=== PATIENT | female | born 1960 | race African-American/Black ===

== ENCOUNTER 2018-01-16 14:37 | Day surgery (SDC) | payer MEDICARE, MEDICAID ==
[2018-01-16 14:56] VITALS: BP 125/74; TEMP 98.3
[2018-01-16] MEDS ORDERED: Epoetin (NON-ESRD) 20,000 UNITS/ML ML SC SCH ×2 (15:00)
[2018-01-16] MEDS ORDERED: Epoetin (ESRD) 20,000 UNITS/ML SC SCH (15:00)
== END 2018-01-16 15:36 | disposition home or self-care (01) ==
LOC: ONC/OP 14:37
PROVIDERS: ATTEND Internal Medicine Medical Oncology
DX: D50.8 Other iron deficiency anemias (principal); N18.3 Chronic kidney disease, stage 3 (moderate)
CPT/HCPCS: 96372; J0885; Q4081

== ENCOUNTER 2018-01-21 20:22 | Emergency (ER) | payer MEDICARE, MEDICAID ==
[2018-01-21 20:51] LABS: #Eosinphils 0.2 thou/uL (0.0-0.7); #Lymphocytes 1.7 thou/uL (1.20-3.40); #Monocytes 0.4 thou/uL (0.11-0.59); #Neutrophils 6.4 thou/uL (1.40-6.50); %Basophils 0.4 % (0.0-1.0); %Eosinophils 2.2 % (0.0-10.0); %Lymphocytes 19.8 % (21.0-51.0); %Neutrophils 72.7 % (42.0-75.0); Hemoglobin 10.6 g/dL (12.0-16.0); Mean Corpuscular HGB CONC 31.6 g/dL (32.0-36.0); Mean Corpuscular Hemoglobin 25.2 pg (27.0-31.0); Mean Corpuscular Volume 79.6 fl (81.0-99.0); Mean Platelet Volume 10.6 fL (7.4-10.4); Platelet Count 254 thou/uL (130-400); RBC Distribution Width 17.6 % (11.5-14.5); Red Blood Cell (RBC) Count 4.21 mill/uL (4.20-5.40); White Blood Cell (WBC) Count 8.8 thou/uL (4.8-10.8)
[2018-01-21 21:11] LABS: ALT (SGPT) 8 U/L (8-55); AST (SGOT) 10 U/L (5-34); Albumin 3.6 g/dL (3.5-5.0); Alkaline Phosphatase 86 U/L (40-150); Anion Gap 14 mmol/L (10-20); BUN (Urea Nitrogen) 32 mg/dL (9.8-20.1); Bilirubin, Total 0.6 mg/dL (0.2-1.2); Calc. Creatinine Clearance 0 mL/min (70-130); Calcium 9.2 mg/dL (7.8-10.44); Carbon Dioxide 26 mmol/L (22-29); Chloride 103 mmol/L (98-107); Estimated GFR-MDRD 32; Glucose 157 mg/dL (70-105); Lipase 51 U/L (8-78); Potassium 3.8 mmol/L (3.5-5.1); Protein, Total 7.6 g/dL (6.0-8.3); Sodium 139 mmol/L (136-145)
[2018-01-21 21:15] LABS: CKMB 0.3 ng/mL (0-6.6); Troponin I Less than 0.010 ng/mL (< 0.028)
--- NOTE | 2018-01-21 21:52 | RAD ---
PORTABLE CHEST: 01/21/2018 PROVIDED CLINICAL HISTORY: Cough. COMPARISON: 01/21/2017 FINDINGS: Evaluation is limited by patient body habitus. The cardiac silhouette appears enlarged. Prominence of the pulmonary vasculature. The left lung base is poorly evaluated. Parenchymal opacity cannot be excluded. There is no evidence for pneumothorax or large effusion. IMPRESSION: Limited study without evidence for an acute cardiopulmonary process. POS: [facility]
== END 2018-01-22 00:48 | disposition home or self-care (01) ==
LOC: ERS 20:22
DX: J20.9 Acute bronchitis, unspecified (principal); J44.0 Chronic obstructive pulmonary disease with (acute) lower respiratory infection; I11.0 Hypertensive heart disease with heart failure; I50.9 Heart failure, unspecified; E11.9 Type 2 diabetes mellitus without complications; Z79.82 Long term (current) use of aspirin; Z79.899 Other long term (current) drug therapy
CPT/HCPCS: 71045; 80053; 82553; 83690; 84484; 85025; 93005; J7620

== ENCOUNTER 2018-01-23 13:57 | Day surgery (SDC) | payer MEDICARE, MEDICAID ==
[2018-01-23] MEDS ORDERED: Epoetin (ESRD) 20,000 UNITS/ML SC SCH (14:30)
[2018-01-23 14:43] VITALS: BP 135/63; TEMP 98
== END 2018-01-23 14:43 | disposition home or self-care (01) ==
LOC: ONC/OP 13:57
PROVIDERS: ATTEND Internal Medicine Medical Oncology
DX: D50.8 Other iron deficiency anemias (principal); N18.3 Chronic kidney disease, stage 3 (moderate)
CPT/HCPCS: 96372; Q4081

== ENCOUNTER 2018-01-24 18:05 | Emergency (ER) | payer MEDICARE, MEDICAID ==
[2018-01-24 18:30] LABS: #Eosinphils 0.1 thou/uL (0.0-0.7); #Lymphocytes 1.9 thou/uL (1.20-3.40); #Monocytes 0.5 thou/uL (0.11-0.59); #Neutrophils 6.4 thou/uL (1.40-6.50); %Basophils 0.2 % (0.0-1.0); %Eosinophils 0.6 % (0.0-10.0); %Lymphocytes 21.8 % (21.0-51.0); %Monocytes 5.4 % (0.0-10.0); Hemoglobin 10.7 g/dL (12.0-16.0); Mean Corpuscular HGB CONC 30.3 g/dL (32.0-36.0); Mean Corpuscular Hemoglobin 23.9 pg (27.0-31.0); Mean Corpuscular Volume 78.9 fl (81.0-99.0); Mean Platelet Volume 10.4 fL (7.4-10.4); Platelet Count 295 thou/uL (130-400); Red Blood Cell (RBC) Count 4.49 mill/uL (4.20-5.40); White Blood Cell (WBC) Count 8.9 thou/uL (4.8-10.8)
[2018-01-24 18:52] LABS: ALT (SGPT) Less than 7 U/L (8-55); AST (SGOT) 9 U/L (5-34); Albumin 3.4 g/dL (3.5-5.0); Alkaline Phosphatase 76 U/L (40-150); Anion Gap 14 mmol/L (10-20); BUN (Urea Nitrogen) 46 mg/dL (9.8-20.1); Bilirubin, Total 0.4 mg/dL (0.2-1.2); CK (CPK) 38 U/L (29-168); Calc. Creatinine Clearance 0 mL/min (70-130); Calcium 9.2 mg/dL (7.8-10.44); Carbon Dioxide 24 mmol/L (22-29); Chloride 103 mmol/L (98-107); Estimated GFR-MDRD 24; Globulin 3.5 g/dL (2.4-3.5); Glucose 123 mg/dL (70-105); Potassium 3.8 mmol/L (3.5-5.1); Protein, Total 6.9 g/dL (6.0-8.3); Sodium 137 mmol/L (136-145)
[2018-01-24 18:57] LABS: CKMB 0.6 ng/mL (0-6.6); Troponin I Less than 0.010 ng/mL (< 0.028)
[2018-01-24] MEDS ORDERED: diphenhydrAMINE 50 MG CAP ONE (19:07)
[2018-01-24] MEDS ORDERED: methylPREDNISolone Sod Succ/PF 125 MG/2 ML VIAL ONE (19:07)
--- NOTE | 2018-01-24 19:19 | RAD ---
FRONTAL VIEW CHEST: INDICATIONS: Short of breath. COMPARISON: 01/21/2018 FINDINGS: There is enlargement of the cardiac silhouette and prominence of the pulmonary vasculature. The left lung base is obscured by the enlarged cardiac silhouette. The chest is otherwise similar. IMPRESSION: Evidence of congestive heart failure. Recommend continued followup. POS: [facility]
== END 2018-01-24 21:27 | disposition home or self-care (01) ==
LOC: ERS 18:05
DX: L50.0 Allergic urticaria (principal); N17.9 Acute kidney failure, unspecified; J44.9 Chronic obstructive pulmonary disease, unspecified; I50.9 Heart failure, unspecified; E11.9 Type 2 diabetes mellitus without complications; I11.0 Hypertensive heart disease with heart failure; Z87.891 Personal history of nicotine dependence; Z86.73 Personal history of transient ischemic attack (TIA), and cerebral infarction without residual deficits; Z79.899 Other long term (current) drug therapy; Z79.82 Long term (current) use of aspirin
CPT/HCPCS: 71045; 80053; 82553; 84484; 85025; 93005; 94760; 96372; J2930

== ENCOUNTER 2018-02-07 09:06 | Day surgery (SDC) | payer MEDICARE, MEDICAID ==
[2018-02-07] MEDS ORDERED: Sodium Chloride 0.9% 20 ML ONE (09:28)
[2018-02-07 10:28] VITALS: BP 124/74; TEMP 97.5
== END 2018-02-07 11:42 | disposition home or self-care (01) ==
LOC: ONC/OP 09:06
PROVIDERS: ATTEND Internal Medicine Medical Oncology
DX: D50.8 Other iron deficiency anemias (principal); N18.3 Chronic kidney disease, stage 3 (moderate)
CPT/HCPCS: 96365; A4216; J1756; J7050

== ENCOUNTER 2018-02-20 14:39 | Day surgery (SDC) | payer MEDICARE, MEDICAID ==
[2018-02-20] MEDS ORDERED: Darbepoetin Alfa in Polysorbat 25 MCG/ML VIAL SC SCH (15:00)
== END 2018-02-20 17:14 | disposition home or self-care (01) ==
LOC: ONC/OP 14:39
PROVIDERS: ATTEND Internal Medicine Medical Oncology
DX: D50.8 Other iron deficiency anemias (principal); N18.3 Chronic kidney disease, stage 3 (moderate)
CPT/HCPCS: 96372; J0881

== ENCOUNTER 2018-02-27 15:27 | Day surgery (SDC) | payer MEDICARE, MEDICAID ==
[2018-02-27] MEDS ORDERED: Darbepoetin Alfa in Polysorbat 25 MCG/ML VIAL SC SCH (15:45)
== END 2018-02-27 16:16 | disposition home or self-care (01) ==
LOC: ONC/OP 15:27
PROVIDERS: ATTEND Internal Medicine Medical Oncology
DX: D50.8 Other iron deficiency anemias (principal); N18.3 Chronic kidney disease, stage 3 (moderate); D63.1 Anemia in chronic kidney disease
CPT/HCPCS: 96372; J0881

== ENCOUNTER 2018-03-20 15:36 | Day surgery (SDC) | payer MEDICARE, MEDICAID ==
[2018-03-20] MEDS ORDERED: Darbepoetin Alfa in Polysorbat 25 MCG/ML VIAL SC SCH (16:00)
[2018-03-20 16:27] VITALS: BP 114/74; TEMP 97.8
== END 2018-03-20 16:27 | disposition home or self-care (01) ==
LOC: ONC/OP 15:36
PROVIDERS: ATTEND Internal Medicine Hematology & Oncology
DX: I13.0 Hypertensive heart and chronic kidney disease with heart failure and stage 1 through stage 4 chronic kidney disease, or unspecified chronic kidney disease (principal); E11.22 Type 2 diabetes mellitus with diabetic chronic kidney disease; I50.30 Unspecified diastolic (congestive) heart failure; N18.3 Chronic kidney disease, stage 3 (moderate); D63.1 Anemia in chronic kidney disease; D50.8 Other iron deficiency anemias; M10.9 Gout, unspecified; E78.5 Hyperlipidemia, unspecified; M19.90 Unspecified osteoarthritis, unspecified site; J44.9 Chronic obstructive pulmonary disease, unspecified; F41.9 Anxiety disorder, unspecified; F32.9 Major depressive disorder, single episode, unspecified
CPT/HCPCS: 96372; J0881

== ENCOUNTER 2018-03-26 10:48 | Outpatient (CLI) | payer MEDICARE, MEDICAID | END 2018-03-26 10:49 | disposition home or self-care (01) | LOC: BICMAMMO 10:48 | PROVIDERS: ATTEND Internal Medicine | DX: Z12.31 Encounter for screening mammogram for malignant neoplasm of breast (principal); Z80.3 Family history of malignant neoplasm of breast | CPT/HCPCS: 77063; 77067 ==

== ENCOUNTER → 2018-03-27 | Day surgery (SDC) | payer MEDICARE, MEDICAID ==
[~2018-03-27] MED LIST: Darbepoetin Alfa in Polysorbat 25 MCG/ML VIAL SC SCH
[2018-03-27 15:13] VITALS: BP 107/55; TEMP 98.3
== END ==
LOC: ONC/OP 14:49
PROVIDERS: ATTEND Internal Medicine Hematology & Oncology
DX: I13.0 Hypertensive heart and chronic kidney disease with heart failure and stage 1 through stage 4 chronic kidney disease, or unspecified chronic kidney disease (principal); E11.22 Type 2 diabetes mellitus with diabetic chronic kidney disease; N18.3 Chronic kidney disease, stage 3 (moderate); D63.1 Anemia in chronic kidney disease; D50.8 Other iron deficiency anemias; I50.30 Unspecified diastolic (congestive) heart failure; M10.9 Gout, unspecified; E78.5 Hyperlipidemia, unspecified; M19.90 Unspecified osteoarthritis, unspecified site; J44.9 Chronic obstructive pulmonary disease, unspecified; F41.9 Anxiety disorder, unspecified; F32.9 Major depressive disorder, single episode, unspecified; Z87.891 Personal history of nicotine dependence; Z79.899 Other long term (current) drug therapy
CPT/HCPCS: 96372; J0881

== ENCOUNTER 2018-04-03 15:06 | Day surgery (SDC) | payer MEDICARE, MEDICAID ==
[2018-04-03] MEDS ORDERED: Darbepoetin Alfa in Polysorbat 25 MCG/ML VIAL SC SCH (15:45)
[2018-04-03 19:44] VITALS: BP 134/68; TEMP 98.5
== END 2018-04-03 19:44 | disposition home or self-care (01) ==
LOC: ONC/OP 15:06
PROVIDERS: ATTEND Internal Medicine Medical Oncology
DX: I13.0 Hypertensive heart and chronic kidney disease with heart failure and stage 1 through stage 4 chronic kidney disease, or unspecified chronic kidney disease (principal); E11.22 Type 2 diabetes mellitus with diabetic chronic kidney disease; N18.3 Chronic kidney disease, stage 3 (moderate); D50.8 Other iron deficiency anemias; I50.30 Unspecified diastolic (congestive) heart failure; D63.1 Anemia in chronic kidney disease; M10.9 Gout, unspecified; E78.5 Hyperlipidemia, unspecified; M19.90 Unspecified osteoarthritis, unspecified site; J44.9 Chronic obstructive pulmonary disease, unspecified; F41.9 Anxiety disorder, unspecified; F32.9 Major depressive disorder, single episode, unspecified; Z87.891 Personal history of nicotine dependence; Z79.899 Other long term (current) drug therapy
CPT/HCPCS: 96372; J0881

== ENCOUNTER 2018-04-23 09:43 | Day surgery (SDC) | payer MEDICARE, MEDICAID ==
[2018-04-23 09:57] VITALS: BP 119/73; TEMP 98.1
[2018-04-23] MEDS ORDERED: Darbepoetin Alfa in Polysorbat 25 MCG/ML VIAL SC SCH (10:00)
== END 2018-04-23 15:58 | disposition home or self-care (01) ==
LOC: ONC/OP 09:43
PROVIDERS: ATTEND Internal Medicine Medical Oncology
DX: D50.8 Other iron deficiency anemias (principal); N18.3 Chronic kidney disease, stage 3 (moderate); D63.1 Anemia in chronic kidney disease
CPT/HCPCS: 96372; J0881

== ENCOUNTER 2018-05-07 09:18 | Day surgery (SDC) | payer MEDICARE, MEDICAID ==
[2018-05-07] MEDS ORDERED: Darbepoetin Alfa in Polysorbat 25 MCG/ML VIAL SC SCH (09:45)
== END 2018-05-07 11:28 | disposition home or self-care (01) ==
LOC: ONC/OP 09:18
PROVIDERS: ATTEND Internal Medicine Medical Oncology
DX: D50.8 Other iron deficiency anemias (principal); N18.3 Chronic kidney disease, stage 3 (moderate)
CPT/HCPCS: 96372; J0881

== ENCOUNTER 2018-05-16 23:15 | Inpatient (IN) | payer MEDICARE, MEDICAID ==
[2018-05-16] MEDS ORDERED: Albuterol Sulfate 2.5 mg/3 ml Neb ONE (23:35)
--- NOTE | 2018-05-16 23:38 | RAD ---
CHEST ONE VIEW: 05/16/18 HISTORY: Chest pain. Comparison radiograph: 01/24/18. FINDINGS: The heart size is enlarged. Pulmonary arteries are enlarged. Mild edema. Small effusions. IMPRESSION: Congestive heart failure. POS: [facility]
[2018-05-16 23:50] LABS: Actual Bicarbonate (HCO3a) 25.3 mEq/L (22-28); Analyzer IN Cardio ER; Base Excess (BEa) 1.5 mEq/L (-2.0 to +3.0); CO2 Tension 37.2 mmHg (35.0-45.0); Calcium, Ionized 1.13 mmol/L (1.12-1.30); Carboxyhemoglobin (COHb) 0.4 gm% (0.0-3.0); Hemoglobin (Hb) 11.7 g/dL (12.0-16.0); Potassium - ABG Lab 3.21 mmol/L (3.70-5.30); pH, Arterial 7.45 (7.35-7.45)
[2018-05-16 23:51] LABS: #Basophils 0.1 thou/uL (0.0-0.2); #Eosinphils 0.1 thou/uL (0.0-0.7); #Lymphocytes 1.7 thou/uL (1.20-3.40); #Monocytes 0.5 thou/uL (0.11-0.59); %Basophils 0.6 % (0.0-1.0); %Eosinophils 1.2 % (0.0-10.0); %Monocytes 5.4 % (0.0-10.0); %Neutrophils 74.8 % (42.0-75.0); Hemoglobin 10.6 g/dL (12.0-16.0); Mean Corpuscular HGB CONC 31.4 g/dL (32.0-36.0); Mean Corpuscular Hemoglobin 26.2 pg (27.0-31.0); Mean Corpuscular Volume 83.6 fL (78.0-98.0); Mean Platelet Volume 10.3 fL (7.4-10.4); Platelet Count 296 thou/uL (130-400); RBC Distribution Width 17.1 % (11.5-14.5); Red Blood Cell (RBC) Count 4.02 mill/uL (4.20-5.40); White Blood Cell (WBC) Count 9.4 thou/uL (4.8-10.8)
[2018-05-16 23:54] LABS: Puncture Site RRA
[2018-05-17 00:10] LABS: ALT (SGPT) 27 U/L (8-55); AST (SGOT) 18 U/L (5-34); Albumin 3.5 g/dL (3.5-5.0); Alkaline Phosphatase 86 U/L (40-150); Anion Gap 14 mmol/L (10-20); BUN (Urea Nitrogen) 36 mg/dL (9.8-20.1); Bilirubin, Total 0.3 mg/dL (0.2-1.2); CK (CPK) 49 U/L (29-168); Calc. Creatinine Clearance 0 mL/min (70-130); Calcium 8.8 mg/dL (7.8-10.44); Carbon Dioxide 22 mmol/L (22-29); Chloride 108 mmol/L (98-107); Estimated GFR-MDRD 29; Globulin 3.2 g/dL (2.4-3.5); Glucose 149 mg/dL (70-105); Lipase 25 U/L (8-78); Potassium 3.4 mmol/L (3.5-5.1); Protein, Total 6.7 g/dL (6.0-8.3); Sodium 141 mmol/L (136-145)
[2018-05-17 00:14] LABS: CKMB 0.7 ng/mL (0-6.6); Troponin I Less than 0.010 ng/mL (< 0.028)
[2018-05-17] MEDS ORDERED: Furosemide 40 MG/4 ML VIAL ONE (00:25)
[2018-05-17] MEDS ORDERED: Nitroglycerin 2% Ointment 1 INCH/1 GM Packet ONE (00:25)
[2018-05-17 00:30] LABS: INR-International Normal Ratio 2.6; Prothrombin Time 27.8 SEC (12.0-14.7)
[2018-05-17] MEDS ORDERED: Acetaminophen 325 MG TAB PO PRN (01:26)
[2018-05-17] MEDS ORDERED: HumaLOG 300 UNITS/3 ML VIAL SC PRN (01:31)
[2018-05-17] MEDS ORDERED: Dextrose 5% in Water 1,000 ML IV PRN (01:31)
[2018-05-17] MEDS ORDERED: Dextrose 50% Abboject 50 ML SYRINGE SLOW IVP PRN (01:31)
[2018-05-17] MEDS ORDERED: WARFARIN PO PRN (01:41)
[2018-05-17 04:07] LABS: #Eosinphils 0.1 thou/uL (0.0-0.7); #Lymphocytes 1.3 thou/uL (1.20-3.40); #Monocytes 0.5 thou/uL (0.11-0.59); #Neutrophils 6.4 thou/uL (1.40-6.50); %Basophils 0.5 % (0.0-1.0); %Eosinophils 1.2 % (0.0-10.0); %Lymphocytes 15.2 % (21.0-51.0); %Monocytes 6.3 % (0.0-10.0); %Neutrophils 76.8 % (42.0-75.0); Mean Corpuscular HGB CONC 30.8 g/dL (32.0-36.0); Mean Corpuscular Volume 84.4 fL (78.0-98.0); Mean Platelet Volume 10.1 fL (7.4-10.4); Platelet Count 257 thou/uL (130-400); RBC Distribution Width 16.9 % (11.5-14.5); Red Blood Cell (RBC) Count 3.83 mill/uL (4.20-5.40); White Blood Cell (WBC) Count 8.4 thou/uL (4.8-10.8)
[2018-05-17 04:13] LABS: Anion Gap 12 mmol/L (10-20); BUN (Urea Nitrogen) 36 mg/dL (9.8-20.1); Calc. Creatinine Clearance 28 mL/min (70-130); Calcium 8.4 mg/dL (7.8-10.44); Carbon Dioxide 26 mmol/L (22-29); Chloride 108 mmol/L (98-107); Estimated GFR-MDRD 31; Glucose 112 mg/dL (70-105); Potassium 3.4 mmol/L (3.5-5.1); Sodium 143 mmol/L (136-145)
[2018-05-17 04:19] LABS: INR-International Normal Ratio 2.6
[2018-05-17] MEDS: Furosemide 40 MG/4 ML VIAL SLOW IVP SCH ×2 (06:06→14:04)
[2018-05-17 06:15] VITALS: BMI 45.8
--- NOTE | 2018-05-17 07:59 | HP ---
DATE OF ADMISSION: 05/17/2018 PRIMARY CARE PHYSICIAN: Dr. bAarca. CODE STATUS: FULL CODE. TIME OF EVALUATION: 1:40 a.m. CHIEF COMPLAINT: Shortness of breath. HISTORY OF PRESENT ILLNESS: This is a 57-year-old female patient with past medical history of hypertension, diabetes, obesity, CHF, COPD, came to the hospital after having gradually worsening shortness of breath that was severe with saturation of 82 on 3 liters and then BiPAP for stabilization of her respiratory status, no clear triggers, only alleviating factor was the medical treatment. Symptoms were severe. REVIEW OF SYSTEMS: Constitutional: No fever or chills or generalized weakness. Respiratory: Patient has cough, scant whitish sputum production, shortness of breath. Cardiovascular: No chest pain, palpitation, exertional shortness of breath. Gastrointestinal: No nausea, no vomiting, diarrhea, or abdominal pain. 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 Genitourinary: No burning on urination. Extremities: No leg swelling. All other systems were reviewed and negative except for the findings mentioned above. PAST MEDICAL HISTORY: As mentioned in the HPI. PAST SURGICAL HISTORY: Hysterectomy. PSYCHIATRIC HISTORY: No previous psych history. SOCIAL HISTORY: Patient denies any alcohol use. No drugs. Former cigarette smoker. FAMILY HISTORY: Sibling with coronary artery disease. Mother with history of cancer. DRUG ALLERGIES: No known drug allergies. REPORTED MEDICATIONS: Coumadin, aspirin, metoprolol, montelukast, sertraline, amlodipine, hydralazine, potassium chloride, atorvastatin, Advair, ProAir, allopurinol, calcium plus vitamin D. PHYSICAL EXAMINATION: VITAL SIGNS: On presentation, heart rate 85, respiratory rate was 24, oxygen saturation was 95 on BiPAP were recorded in the 80s on 3 liters nasal cannula, blood pressure was 120/93. GENERAL APPEARANCE: The patient is on BiPAP, in mild respiratory distress, oriented. Alert. HEENT: Eye normal conjunctiva. Moist oral mucosa. Anicteric. NECK: Bilateral JVD. RESPIRATORY: Bilateral air entry. No rales, no wheezing. Symmetric expansion. CARDIOVASCULAR: Normal rate, regular rhythm. No murmurs, no gallop, bilateral leg edema. ABDOMEN: Soft, distended, normal bowel sounds. MUSCULOSKELETAL: Baseline range of motion and strength. No tenderness. SKIN: Warm and intact. No pallor, no rash, no redness. Peripheral pulses are present. Capillary refill seems to be intact. NEUROLOGIC: Baseline sensory. No evidence of any new focal weakness. Baseline speech. Cranial nerves seem to be intact. PSYCHIATRIC: Patient is in good mood, no anxiety, oriented with optimal judgment. IMAGING: EKG was reviewed myself. Patient has sinus rhythm with occasional PVCs, prolonged QT with QT corrected 465, MI 178. Ventricular rate 84. Chest x -ray was reviewed. The patient has congestive heart failure on the chest x-ray. LABORATORY DATA: The labs were reviewed myself. Patient has white count 9.4, hemoglobin 10.6, platelet count 296. PT 27.8, INR 2.6, PTT 58.0. Blood gas ABG was 7.45 with pCO2 of 37, pO2 of 60 on BiPAP at the rate of 6 and PEEP of 5, pressure support of 10. Chemistry: Sodium 141, potassium 3.4, chloride 108, carbon dioxide 22, anion gap 14, creatinine 2.11. I have reviewed old records and the previous creatinines on March of this year was 1.56 , glucose 149. Lactic acid was normal. Beta natriuretic peptide was 1694 with troponin was negative. ASSESSMENT AND PLAN: The patient will be placed in the hospital with following medical problems: 1. Acute congestive heart failure exacerbation that is severe, leading to hypoxic respiratory failure, needing BiPAP for stabilization of the respiratory status. The patient will be given diuresis, we will continue respiratory support, we will reconcile home medications. We will place in the IMCU for this reason. 2. Acute hypoxic respiratory failure. Continue BiPAP, might be able to step down to nasal cannula if patient is more stable at home. 3. Uncontrolled diabetes with a glucose 149, reconcile home medications and place the patient on sliding scale. 4. Acute on chronic kidney injury. The patient has an increase in creatinine to 2.1 and previous admission was 1.5. She might be cardiorenal, patient will need diuresis if not improving, might need Nephrology office manager executive assistant for diuresis in the setting of her acute kidney injury. We will monitor kidney function. 5. Hypokalemia with potassium 3.4, we will replace electrolytes as needed. This is mild. 6. Chronic normocytic anemia, hemoglobin was the same in old records. Likely secondary to chronic kidney disease, no need for any acute intervention at this point, we will monitor. 7. Chronic anticoagulation. INR is 2.6. Pharmacy to dose Coumadin. 8. Uncontrolled hypertension. Patient presented with systolic blood pressure 166, likely related to decompensated congestive heart failure, blood pressure was improved after Lasix, we will monitor. We will reconcile home medications, we will adjust treatment as needed. 9. History of chronic obstructive pulmonary disease, patient has no wheezing, these problems seems to be stable at this point, might need CO2 retention on the ABG. Reconcile home medications. We will monitor, start complete treatment for chronic obstructive pulmonary disease exacerbation if patient deteriorates. 10. Deep venous thrombosis prophylaxis. Patient is on warfarin. MTDD
[2018-05-17] MEDS: Enoxaparin Sodium 30 MG/0.3 ML SYRINGE SC SCH ×2 (08:50→08:51)
[2018-05-17] MEDS ORDERED: PROVENTIL INHALER 6.7 G (200 INHALATIONS) INH PRN (11:07)
--- NOTE | 2018-05-17 11:10 | PDOC.EVN ---
Event Note - Event Note Event Note: Pt seen and examined. chart reviewed. admitted for ac hypoxic respiratory failure due to Acute CHF,christinaley diastolic. Off of Bipap and feels better. few bibasilar crackles. No wheezes Cont diuretics. Get ECHO. restart home meds. will follow. AM labs
--- NOTE | 2018-05-17 13:49 | CON ---
DATE OF CONSULTATION: 05/17/2018 SERVICE: Pulmonary Medicine. HISTORY OF PRESENT ILLNESS: The patient is a 57-year-old female with past medical history significant for horrendous obstructive sleep apnea, morbid obesity, obesity hypoventilation syndrome and possible obstructive lung disease who presents to the hospital with a 3-day history of increasing shortness of breath, cough and brown sputum production. She denies having any fevers or chills. She denies having any night sweats. She has no nausea or vomiting. She had a day of diarrhea 2 days ago, but it has subsequently resolved. She is not having any abdominal discomfort, hot, red or swollen joints, rashes or arthralgias. Because of these symptoms, she was having a hard time breathing and presented to the Emergency Department. She got Lasix and nebulized medications. This morning, she is actually feeling a little bit better. At no point did she actually get put on her BiPAP. PAST MEDICAL HISTORY: 1. Morbid obesity. 2. Obstructive sleep apnea, severe (AHI 150). 3. Type 2 diabetes mellitus. 4. Hypertension. 5. Dyslipidemia. 6. Chronic obstructive pulmonary disease, possible. 7. Gastroesophageal reflux disease. 8. Congestive heart failure. PAST SURGICAL HISTORY: Hysterectomy. SOCIAL HISTORY: Negative for tobacco, alcohol or illicit drug use. She has a remote history of smoking cigarettes, but it was only a 40-imir-lzwo history. FAMILY HISTORY: Noncontributory. ALLERGIES: No known drug allergies. MEDICATIONS: List of her inpatient medications was reviewed. Multiple updates were made. REVIEW OF SYSTEMS: General, head, ears, eyes, nose, throat, cardiovascular, respiratory, GI, , musculoskeletal, neurologic and skin is negative except as mentioned in the HPI. PHYSICAL EXAMINATION: VITAL SIGNS: Afebrile, pulse 66, blood pressure 145/79, respirations 22, saturation 95% on 3 liters nasal cannula. GENERAL: The patient is awake and alert, in no apparent distress. LUNGS: Decent air entry. Crackles are present bilaterally. There is no prolonged expiratory phase. Rhonchi are there, but I do not appreciate any wheezing. HEART: Normal rate, regular. ABDOMEN: Soft, nontender, nondistended. Bowel sounds are positive. MUSCULOSKELETAL: No cyanosis or clubbing. There is 1+ pitting in the bilateral lower extremities. NEUROLOGIC: Grossly nonfocal. LABORATORY DATA: WBC 8.4, hemoglobin 10.0, platelets 257,000. INR 2.6. PH 7.45, pCO2 37, pO2 60. Creatinine 2.01, BUN 36. Basic metabolic profile is otherwise unremarkable. Potassium is 3.4. Blood sugar ranges from 94-156. BNP 1600, which is an all time high for this patient. Liver function studies are unremarkable. Cardiac enzymes are negative x1. IMAGING: Chest x-ray demonstrates interstitial and alveolar infiltrates. There is a fullness of the pulmonary vasculature. Tevin B lines and fluid in the fissure is identified. The heart is enlarged. There is likely a left- sided pleural effusion present, but it is challenging to say. There is significant soft tissue attenuation. ASSESSMENT: 1. Acute on chronic hypoxic respiratory failure. 2. Morbid obesity. 3. Acute on chronic diastolic heart failure. 4. Gastroesophageal reflux disease. 5. Obstructive sleep apnea, horrendous, noncompliant with CPAP therapy. DISCUSSION AND PLAN: The patient is doing fine from a respiratory standpoint. We will continue to diurese her through time. I will deescalate her steroids and limit her to a 4-day course. Antibiotics will be converted over to p.o. Fluids will be minimized moving forward. I will give her some potassium today. She does have chronic kidney disease, which is likely contributing to her fluid overload state. I do not think that she has horrendous obstructive lung disease based on clinical exam. We have pulmonary function studies from 2015 that were essentially not able to be interpreted because her expiratory time was wholly inadequate due to coughing spells, but at that time, there did not appear to be any significant obstructive profile. Pulmonary will continue to follow while the patient remains in house, but Dr. Redmond will assume care on Saturday. 70 minutes have been devoted to this patient in various activities. I personally reviewed all imaging studies and laboratory data noted within this document. For fifty percent of this time, I was interacting with the patient at the bedside or coordinating care with the care team. For the remainder of the time I was immediately available to the patient in the hospital unit. JENNIFER
[2018-05-17] MEDS ORDERED: Warfarin Sodium 5 MG TAB PO SCH (17:00)
[2018-05-17] MEDS: Potassium Chloride 20 MEQ TAB PO SCH (17:58)
[2018-05-17] MEDS: Warfarin Sodium 5 MG TAB PO SCH (17:58)
--- NOTE | 2018-05-17 18:26 | CON ---
DATE OF CONSULTATION: 05/17/2018 HISTORY OF PRESENT ILLNESS: The patient is a 57-year-old woman who presented with increasing dyspnea. The patient was seen initially in 2010. She underwent a cardiac catheterization to have normal left ventricular systolic function with normal coronary arteries. The patient admitted on several occasions with diastolic heart failure. The patient also has a history of DVT and is on chronic anticoagulation therapy. The patient previously suffered a cerebrovascular accident. The patient was in her usual state of health when she recently ran out of some of her antihypertensive medications. The patient started developing increasing dyspnea. The patient denied having any chest discomfort. PAST MEDICAL HISTORY: 1. Congestive heart failure. 2. Hypertension. 3. Diabetes mellitus. 4. Deep venous thrombosis. 5. History of cerebrovascular accident. PAST SURGICAL HISTORY: Hysterectomy. SOCIAL HISTORY: Nonsmoker. ALLERGIES: No known drug allergies. MEDICATIONS: Coumadin 5 at bedtime, aspirin 81 daily, metoprolol 100 b.i.d., Norvasc 10 daily, potassium 20 b.i.d., Lasix 10 daily, allopurinol 300 daily. FAMILY HISTORY: Positive family history of heart disease. REVIEW OF SYSTEMS: Ten-point system otherwise unremarkable. No history of easy bruising or bleeding, bright red blood per rectum. PHYSICAL EXAMINATION: GENERAL: Obese woman, in mild distress. VITAL SIGNS: Blood pressure 145/79. NECK: Full. LUNGS: Have crackles in both bases. HEART: Regular rate and rhythm. Normal S1, S2. ABDOMEN: Distended. EXTREMITIES: Showed mild bilateral edema. SKIN: Warm and dry. NEUROLOGIC: Nonfocal. VASCULAR: Radial pulses are 2+. LABORATORY RESULTS: Her sodium was 143, potassium 3.4, chloride 108, bicarbonate 26, BUN 36, creatinine is 2.0, glucose 112. Her white blood cell count is 8.4, hemoglobin 10.0, hematocrit 32.3, platelets 257,000. INR 2.6. IMAGING: EKG revealed her to have normal sinus rhythm with occasional PVCs, nonspecific ST-T wave abnormality. Chest x-ray showed cardiomegaly with diffuse pulmonary edema. IMPRESSION: 1. Congestive heart failure secondary to probably diastolic dysfunction. 2. Hypertension. 3. Diabetes mellitus. 4. History of cerebrovascular accident. 5. Deep venous thrombosis. 6. Renal insufficiency. This patient presents with congestive heart failure. She ran out of her blood pressure medications. The patient is being diuresed with IV Lasix. We will check the patient's echocardiogram. The patient's antihypertensive medications have been restarted. We will follow this patient with you through her hospitalization. JENNIFER
[2018-05-17] MEDS ORDERED: Mometasone/Formoterol 120 PUFF INHALER INH SCH (18:30)
[2018-05-17] MEDS: Mometasone/Formoterol 120 PUFF INHALER INH SCH (18:53)
[2018-05-17] MEDS: Montelukast Sodium 10 mg Tablet PO SCH (21:35)
[2018-05-17] MEDS: hydrALAZINE 25 MG TAB PO SCH (21:35)
[2018-05-18 05:39] LABS: INR-International Normal Ratio 2.6; Prothrombin Time 27.5 SEC (12.0-14.7)
[2018-05-18 05:53] LABS: Anion Gap 15 mmol/L (10-20); BUN (Urea Nitrogen) 29 mg/dL (9.8-20.1); Calc. Creatinine Clearance 80 mL/min (70-130); Calcium 8.7 mg/dL (7.8-10.44); Carbon Dioxide 21 mmol/L (22-29); Chloride 110 mmol/L (98-107); Estimated GFR-MDRD 43; Glucose 104 mg/dL (70-105); Magnesium 2.1 mg/dL (1.6-2.6); Sodium 142 mmol/L (136-145)
[2018-05-18] MEDS: Furosemide 40 MG/4 ML VIAL SLOW IVP SCH ×2 (06:16→14:57)
[2018-05-18] MEDS: Mometasone/Formoterol 120 PUFF INHALER INH SCH ×2 (07:26→19:04)
[2018-05-18] MEDS: Calcium Carbonate + Vit D 1 TAB PO SCH (08:50)
[2018-05-18] MEDS: Potassium Chloride 20 MEQ TAB PO SCH ×2 (08:50→17:34)
[2018-05-18] MEDS: Atorvastatin Calcium 10 MG TAB PO SCH (08:51)
[2018-05-18] MEDS: Amlodipine 10 MG TAB PO SCH (08:51)
[2018-05-18] MEDS: Aspirin 81 mg Enteric Coated Tablet PO SCH (08:51)
[2018-05-18] MEDS: Allopurinol 300 MG TAB PO SCH (08:52)
[2018-05-18] MEDS: hydrALAZINE 25 MG TAB PO SCH ×2 (08:52→21:23)
--- NOTE | 2018-05-18 12:11 | PDOC.PN ---
- Subjective Encounter Start Date: 05/18/18 Encounter Start Time: 12:09 Subjective: continues to feel SOb w exertion -: chest pain when gets SOB.no fever/cough - Objective Resuscitation Status: Resuscitation Status FULL:Full Resuscitation MAR Reviewed: Yes Vital Signs & Weight: Vital Signs (12 hours) Temp Pulse Resp BP BP Pulse Ox 05/18/18 08:52 58 L 05/18/18 08:51 58 L 117/62 05/18/18 07:36 93 L 05/18/18 07:35 97.8 F 58 L 18 117/62 93 L 05/18/18 07:26 65 12 05/18/18 04:00 98.3 F 65 21 H 116/87 96 Weight Weight 279 lb 8 oz I&O: 05/17/18 05/18/18 05/19/18 06:59 06:59 06:59 Intake Total 14 960 Output Total 650 2100 Balance -748 -1854 Result Diagrams: 05/17/18 03:28 05/18/18 05:15 Additional Labs: Accuchecks 05/18/18 05/18/18 05/17/18 10:41 06:13 21:57 POC Glucose 159 H 109 121 H 05/17/18 16:11 POC Glucose 151 H Microbiology 05/16/18 23:51 Venous blood - Left Arm Blood Culture - Preliminary Specimen has been received and culture in progress. No Growth to date. 05/16/18 23:40 Venous blood - Right Hand Blood Culture - Preliminary Specimen has been received and culture in progress. No Growth to date. Laboratory Tests 05/16/18 05/17/18 05/18/18 23:40 03:28 05:15 Creatinine 2.11 H 2.01 H 1.52 H Phys Exam - Physical Examination Constitutional: NAD HEENT: PERRLA, moist MMs, sclera anicteric, oral pharynx no lesions Neck: no nodes, no JVD, supple, full ROM Respiratory: no wheezing, no rales, no rhonchi, clear to auscultation bilateral bibasilar mild crackles.reduced sounds b/l Cardiovascular: RRR, no significant murmur Gastrointestinal: soft, non-tender, no distention, positive bowel sounds Musculoskeletal: pulses present, edema present Neurological: non-focal, normal sensation, moves all 4 limbs Psychiatric: normal affect, A&O x 3 Skin: no rash Dx/Plan (1) Acute and chronic respiratory failure Code(s): J96.20 - ACUTE AND CHR RESP FAILURE, UNSP W HYPOXIA OR HYPERCAPNIA Status: Acute (2) Acute on chronic diastolic (congestive) heart failure Code(s): I50.33 - ACUTE ON CHRONIC DIASTOLIC (CONGESTIVE) HEART FAILURE Status : Acute (3) COPD exacerbation Code(s): J44.1 - CHRONIC OBSTRUCTIVE PULMONARY DISEASE W (ACUTE) EXACERBATION Status: Acute (4) Bronchitis Code(s): J40 - BRONCHITIS, NOT SPECIFIED ACUTE OR CHRONIC Status: Acute (5) CKD (chronic kidney disease) Code(s): N18.9 - CHRONIC KIDNEY DISEASE, UNSPECIFIED Status: Chronic (6) Chronic anticoagulation Code(s): Z79.01 - FDC (CURRENT) USE OF ANTICOAGULANTS Status: Chronic (7) DM type 2 (diabetes mellitus, type 2) Status: Chronic Qualifiers: Diabetes mellitus rn long term care insulin use: with rn long term care use Diabetes mellitus complication status: with kidney complications Diabetes mellitus complication detail: with chronic kidney disease Chronic kidney disease stage : stage 3 (moderate) Qualified Code(s): 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 (8) Deep venous thrombosis, chronic Code(s): I82.509 - CHRONIC EMBOLISM AND THOMBOS UNSP DEEP VN UNSP LOW EXTRM Status: Chronic Comment: states h/o Right lower ext DVT few years ago; reports her PCP stated she will be on anticoagulation "indefinitely". no family history of VTE (9) HLD (hyperlipidemia) Code(s): E78.5 - HYPERLIPIDEMIA, UNSPECIFIED Status: Chronic (10) Hypertension Code(s): I10 - ESSENTIAL (PRIMARY) HYPERTENSION Status: Chronic Comment: Spiking today. Will increase meds by adding small dose of hydralazine TID. (11) Morbid obesity Code(s): E66.01 - MORBID (SEVERE) OBESITY DUE TO EXCESS CALORIES Status: Chronic Comment: BMI = 48kg/m2 (12) MARTHA (obstructive sleep apnea) Code(s): G47.33 - OBSTRUCTIVE SLEEP APNEA (ADULT) (PEDIATRIC) Status: Chronic Comment: She tells me that she uses O2 and has CPAP at home which she does not use (13) Pulmonary arterial hypertension Code(s): I27.2 - OTHER SECONDARY PULMONARY HYPERTENSION * DO NOT USE * Status : Chronic - Plan PT/OT, respiratory therapy, incentive spirometry, out of bed/ambulate, DVT proph w/SCDs Discussed need for CPAP in detail.will order in house -: cont nebs,diuresis,O2.supportive care -: renal fx much better. monitor. -: INR therapeutic.cont to monitor -: BP better controlled. cont meds as started. monitor BS-ISS * . Review of Systems - Review of Systems Constitutional: weakness, malaise. negative: fever, chills, sweats, other ENT: negative: Ear Pain, Ear Discharge, Nose Pain, Nose Discharge, Nose Congestion, Mouth Pain, Mouth Swelling, Throat Pain, Throat Swelling, Other Respiratory: SOB with Excertion. negative: Cough, Dry, Shortness of Breath, Hemoptysis, Pleuritic Pain, Sputum, Wheezing Cardiovascular: chest pain. negative: palpitations, orthopnea, paroxysmal nocturnal dyspnea, edema, light headedness, other Gastrointestinal: negative: Nausea, Vomiting, Abdominal Pain, Diarrhea, Constipation, Melena, Hematochezia, Other Genitourinary: negative: Dysuria, Frequency, Incontinence, Hematuria, Retention , Other Musculoskeletal: negative: Neck Pain, Shoulder Pain, Arm Pain, Back Pain, Hand Pain, Leg Pain, Foot Pain, Other Skin: negative: Rash, Lesions, Srikanth, Bruising, Other Neurological: negative: Weakness, Numbness, Incoordination, Change in Speech, Confusion, Seizures, Other - Medications/Allergies Allergies/Adverse Reactions: Allergies Allergy/AdvReac Type Severity Reaction Status Date / Time No Known Allergies Allergy Verified 01/21/17 23:48 Medications: Current Medications Acetaminophen (Tylenol) 650 mg PO Q4H PRN PRN Reason: Headache/Fever or Pain Last Admin: 05/17/18 23:29 Dose: 650 mg Albuterol Sulfate (Proventil Hfa) 2 puff INH Q4HR PRN PRN Reason: Dyspnea/Wheezing/SOB Albuterol/Ipratropium (Duoneb) 3 ml NEB [id number] PRN PRN Reason: SOB &/or Wheezing Last Admin: 05/17/18 18:53 Dose: 3 ml Allopurinol (Zyloprim) 300 mg PO DAILY [facility] Last Admin: 05/18/18 08:52 Dose: 300 mg Amlodipine Besylate (Norvasc) 10 mg PO DAILY [facility] Last Admin: 05/18/18 08:51 Dose: 10 mg Aspirin (Ecotrin) 81 mg PO DAILY [facility] Last Admin: 05/18/18 08:51 Dose: 81 mg Atorvastatin Calcium (Lipitor) 10 mg PO DAILY [facility] Last Admin: 05/18/18 08:51 Dose: 10 mg Calcium/Vitamin D (Caltrate 600 + Vit D) 1 tab PO DAILY [facility] Last Admin: 05/18/18 08:50 Dose: 1 tab Dextrose/Water (Dextrose 50%) 25 gm SLOW IVP PRN PRN PRN Reason: Hypoglycemia Furosemide (Lasix) 40 mg SLOW IVP 0600,1400 [facility] Last Admin: 05/18/18 06:16 Dose: 40 mg Glucagon (Glucagon) 1 mg IM PRN PRN PRN Reason: Hypoglycemia Hydralazine HCl (Apresoline) 50 mg PO BID [facility] Last Admin: 05/18/18 08:52 Dose: 50 mg Dextrose/Water (D5w) 1,000 mls @ 0 mls/hr IV .Q0M PRN PRN Reason: Hypoglycemia Insulin Human Lispro (Humalog) 0 units SC .MILD SLIDING SCALE PRN PRN Reason: Mild Correctional Scale Metoprolol Succinate (Toprol Xl) 100 mg PO BID [facility] Last Admin: 05/18/18 08:50 Dose: 100 mg Miscellaneous Medication (Pharmacy To Dose) 1 each PO PRN PRN PRN Reason: HX DVT Mometasone Furoate/Formoterol Fumar (Dulera 100 Mcg/5 Mcg Inhaler) 2 puff INH BID-RT [facility] Last Admin: 05/18/18 07:26 Dose: 2 puff Montelukast Sodium (Singulair) 10 mg PO QPM [facility] Last Admin: 05/17/18 21:35 Dose: 10 mg Potassium Chloride (K-Dur) 20 meq PO BID-WM [facility] Last Admin: 05/18/18 08:50 Dose: 20 meq Sertraline HCl (Zoloft) 50 mg PO DAILY [facility] Last Admin: 05/18/18 08:51 Dose: 50 mg Warfarin Sodium (Coumadin) 5 mg PO 1700 [facility] Last Admin: 05/17/18 17:58 Dose: 5 mg
[2018-05-18] MEDS: Loperamide HCl 2 MG CAP PO PRN (14:57)
--- NOTE | 2018-05-18 16:56 | PRG ---
DATE OF SERVICE: 05/18/2018 SERVICE: Pulmonary Medicine. INTERVAL HISTORY: The patient is doing great from a respiratory standpoint. She is breathing a chandrakant le bit easier. She has been able to get up and walk around a little bit easier. She has no chest di scomfort. She is not having any palpitations. Overall, she feels like she is moving in the right di rection, but is not quite back to baseline yet. PHYSICAL EXAMINATION: VITAL SIGNS: Afebrile, pulse 64, blood pressure 117/70, respirations 17, and saturation 94% on 3 lit ers nasal cannula. GENERAL: The patient is awake and alert, in no apparent distress. LUNGS: Decent air entry. Crackles are present. There is a minimally prolonged expiratory phase, bu t I do not appreciate wheezing or rhonchi today. HEART: Normal rate, regular. ABDOMEN: Soft, nontender, nondistended. Bowel sounds are positive. MUSCULOSKELETAL: No cyanosis or clubbing. There is trace to 1+ pitting in the bilateral lower extre mities, but this is significantly improved compared to prior. LABORATORY DATA: Bicarbonate 21 and down trending, sodium 142, chloride 110. Creatinine is improved to 1.52, and BUN is also down to 29. Magnesium falls within the normal limits. Blood cultures x2 a re unremarkable. IMAGING DATA: Echocardiogram demonstrates normal ejection fraction with a dilated left atrium and a severely enlarged right ventricular cavity. The RVSP is estimated to be 78 mmHg. ASSESSMENT: 1. Acute on chronic hypoxic respiratory failure. 2. Morbid obesity. 3. Chronic diastolic heart failure. 4. Acute bronchitis. 5. Obstructive sleep apnea, horrendous, noncompliant with CPAP therapy. 6. Pulmonary hypertension by echo criteria only. 7. Gastroesophageal reflux disease. DISCUSSION AND PLAN: We will continue her antibiotics, and home inhalers. DuoNeb will be provided o n an as needed basis. Pulmonary Critical Care will continue to follow along. Ultimately, she will n eed to get back in touch with Dr. Redmond to consider an outpatient titration study for her horrendou s obstructive sleep apnea. This is undoubtedly contributing to her elevated pulmonary pressures.
[2018-05-18] MEDS: Warfarin Sodium 5 MG TAB PO SCH (17:34)
[2018-05-18] MEDS: Montelukast Sodium 10 mg Tablet PO SCH (21:23)
[2018-05-19] MEDS ORDERED: Furosemide 40 MG/4 ML VIAL SLOW IVP SCH (06:00)
[2018-05-19 06:02] LABS: INR-International Normal Ratio 2.5; Prothrombin Time 27.2 SEC (12.0-14.7)
[2018-05-19 06:21] LABS: Anion Gap 10 mmol/L (10-20); BUN (Urea Nitrogen) 7 mg/dL (9.8-20.1); Calc. Creatinine Clearance 75 mL/min (70-130); Calcium 8.9 mg/dL (7.8-10.44); Carbon Dioxide 25 mmol/L (22-29); Chloride 110 mmol/L (98-107); Estimated GFR-MDRD 41; Glucose 105 mg/dL (70-105); Potassium 4.1 mmol/L (3.5-5.1); Sodium 141 mmol/L (136-145)
[2018-05-19] MEDS: Mometasone/Formoterol 120 PUFF INHALER INH SCH ×2 (07:21→20:01)
[2018-05-19] MEDS: Amlodipine 10 MG TAB PO SCH (07:50)
[2018-05-19] MEDS: Allopurinol 300 MG TAB PO SCH (07:50)
[2018-05-19] MEDS: Atorvastatin Calcium 10 MG TAB PO SCH (07:51)
[2018-05-19] MEDS: Aspirin 81 mg Enteric Coated Tablet PO SCH (07:51)
[2018-05-19] MEDS: Calcium Carbonate + Vit D 1 TAB PO SCH (07:51)
[2018-05-19] MEDS: hydrALAZINE 25 MG TAB PO SCH ×2 (07:51→20:37)
[2018-05-19] MEDS: Potassium Chloride 20 MEQ TAB PO SCH ×2 (07:51→17:00)
--- NOTE | 2018-05-19 08:32 | PRG ---
DATE OF SERVICE: 05/19/2018 SUBJECTIVE: The patient is doing reasonably well. She had no acute complaints. PHYSICAL EXAMINATION: VITAL SIGNS: Temperature 98.0, pulse 62, blood pressure 130/65, O2 sat 94% on 3 liters. HEENT: Unremarkable. NECK: No adenopathy, no JVD. LUNGS: Diminished breath sounds at the bases. CARDIAC: S1 and S2 regular. ABDOMEN: Soft. EXTREMITIES: Edematous. LABORATORY DATA: Sodium 141, potassium 4.1, chloride 110, CO2 25, BUN 7, creatinine 1.5, glucose 105 . ASSESSMENT: 1. Obstructive sleep apnea with noncompliance with CPAP. 2. Chronic diastolic heart failure. 3. Morbid obesity. PLAN: The patient has adamantly refused to wear CPAP in the past, although it sounds like she may be changing her tune on this. As an outpatient she needs to followup in the office and we can see marychuy t doing another sleep study and perhaps a BiPAP titration. It is up to her to follow up in the offic e. She has never been good about following up in the past.
--- NOTE | 2018-05-19 13:14 | PDOC.PN ---
- Subjective Encounter Start Date: 05/19/18 Encounter Start Time: 13:13 Subjective: continues to c/o not able to breathe good & easily winded -: Used CPAP last night - Objective Resuscitation Status: Resuscitation Status FULL:Full Resuscitation MAR Reviewed: Yes Vital Signs & Weight: Vital Signs (12 hours) Temp Pulse Resp BP BP Pulse Ox 05/19/18 11:43 98 F 61 20 124/56 L 94 L 05/19/18 08:00 94 L 05/19/18 07:51 62 138/65 05/19/18 07:50 62 138/65 05/19/18 07:47 98 F 62 20 138/65 94 L 05/19/18 07:21 61 16 90 L 05/19/18 07:20 90 L 05/19/18 05:20 97.6 F 62 20 153/85 H 93 L Weight Weight 261 lb 11.019 oz I&O: 05/18/18 05/19/18 05/20/18 06:59 06:59 06:59 Intake Total 960 720 180 Output Total 2100 804 Balance -1140 -84 180 Result Diagrams: 05/17/18 03:28 05/19/18 05:24 Additional Labs: Accuchecks 05/19/18 05/19/18 05/18/18 11:08 05:49 20:52 POC Glucose 129 H 124 H 112 H 05/18/18 16:47 POC Glucose 115 H Microbiology 05/16/18 23:51 Venous blood - Left Arm Blood Culture - Preliminary Specimen has been received and culture in progress. No Growth to date. 05/16/18 23:51 Venous blood - Left Arm Blood Culture - Preliminary NO GROWTH AT 48 HOURS 05/16/18 23:40 Venous blood - Right Hand Blood Culture - Preliminary Specimen has been received and culture in progress. No Growth to date. 05/16/18 23:40 Venous blood - Right Hand Blood Culture - Preliminary NO GROWTH AT 48 HOURS Laboratory Tests 05/16/18 05/17/18 05/18/18 23:40 03:28 05:15 Creatinine 2.11 H 2.01 H 1.52 H 05/19/18 05:24 Creatinine 1.58 H Phys Exam - Physical Examination Constitutional: NAD HEENT: PERRLA, moist MMs, sclera anicteric, oral pharynx no lesions Neck: no nodes, no JVD, supple, full ROM Respiratory: no wheezing, no rales, no rhonchi, clear to auscultation bilateral Better aeration of lungs today Cardiovascular: RRR, no significant murmur, no rub Gastrointestinal: soft, non-tender, no distention, positive bowel sounds Musculoskeletal: no edema, pulses present Neurological: non-focal, normal sensation, moves all 4 limbs Psychiatric: normal affect, A&O x 3 Skin: no rash Dx/Plan (1) Acute and chronic respiratory failure Code(s): J96.20 - ACUTE AND CHR RESP FAILURE, UNSP W HYPOXIA OR HYPERCAPNIA Status: Acute Comment: Multifactorial. MARTHA with Acute diastolic CHF (2) Acute on chronic diastolic (congestive) heart failure Code(s): I50.33 - ACUTE ON CHRONIC DIASTOLIC (CONGESTIVE) HEART FAILURE Status : Acute (3) COPD exacerbation Code(s): J44.1 - CHRONIC OBSTRUCTIVE PULMONARY DISEASE W (ACUTE) EXACERBATION Status: Acute (4) Bronchitis Code(s): J40 - BRONCHITIS, NOT SPECIFIED ACUTE OR CHRONIC Status: Acute (5) CKD (chronic kidney disease) Code(s): N18.9 - CHRONIC KIDNEY DISEASE, UNSPECIFIED Status: Chronic (6) Chronic anticoagulation Code(s): Z79.01 - CHEMICAL MACHINE TENDER (CURRENT) USE OF ANTICOAGULANTS Status: Chronic (7) DM type 2 (diabetes mellitus, type 2) Status: Chronic Qualifiers: Diabetes mellitus mcfp insulin use: with mcfp use Diabetes mellitus complication status: with kidney complications Diabetes mellitus complication detail: with chronic kidney disease Chronic kidney disease stage : stage 3 (moderate) Qualified Code(s): E11.22 - Type 2 diabetes mellitus with diabetic chronic kidney disease; N18.3 - Chronic kidney disease, stage 3 ( moderate); Z79.4 - shelter (current) use of insulin Comment: Controlled. (8) Deep venous thrombosis, chronic Code(s): I82.509 - CHRONIC EMBOLISM AND THOMBOS UNSP DEEP VN UNSP LOW EXTRM Status: Chronic Comment: states h/o Right lower ext DVT few years ago; reports her PCP stated she will be on anticoagulation "indefinitely". no family history of VTE (9) HLD (hyperlipidemia) Code(s): E78.5 - HYPERLIPIDEMIA, UNSPECIFIED Status: Chronic (10) Hypertension Code(s): I10 - ESSENTIAL (PRIMARY) HYPERTENSION Status: Chronic Comment: Spiking today. Will increase meds by adding small dose of hydralazine TID. (11) Morbid obesity Code(s): E66.01 - MORBID (SEVERE) OBESITY DUE TO EXCESS CALORIES Status: Chronic Comment: BMI = 48kg/m2 (12) MARTHA (obstructive sleep apnea) Code(s): G47.33 - OBSTRUCTIVE SLEEP APNEA (ADULT) (PEDIATRIC) Status: Chronic Comment: She tells me that she uses O2 and has CPAP at home which she does not use (13) Pulmonary arterial hypertension Code(s): I27.2 - OTHER SECONDARY PULMONARY HYPERTENSION * DO NOT USE * Status : Chronic - Plan PT/OT, respiratory therapy, incentive spirometry, out of bed/ambulate, DVT proph w/SCDs Change lasix to PO.down by 17 lbs -: cont CPAP hs.encouraged & educated about CPAP fitting as an OP -: refer to HF clinic . severe R sided Heart failure d/t cor pulmonale -: likley home in am.poor prognosis. -: renal Fx stable.monitor.INR therapeutic * . Review of Systems - Review of Systems Constitutional: weakness, malaise. negative: fever, chills, sweats, other Eyes: negative: Pain, Vision Change, Conjunctivae Inflammation, Eyelid Inflammation, Redness, Other ENT: negative: Ear Pain, Ear Discharge, Nose Pain, Nose Discharge, Nose Congestion, Mouth Pain, Mouth Swelling, Throat Pain, Throat Swelling, Other Respiratory: Shortness of Breath, SOB with Excertion Cardiovascular: negative: chest pain, palpitations, orthopnea, paroxysmal nocturnal dyspnea, edema, light headedness, other Gastrointestinal: negative: Nausea, Vomiting, Abdominal Pain, Diarrhea, Constipation, Melena, Hematochezia, Other Genitourinary: negative: Dysuria, Frequency, Incontinence, Hematuria, Retention , Other Musculoskeletal: negative: Neck Pain, Shoulder Pain, Arm Pain, Back Pain, Hand Pain, Leg Pain, Foot Pain, Other Skin: negative: Rash, Lesions, Srikanth, Bruising, Other Neurological: negative: Weakness, Numbness, Incoordination, Change in Speech, Confusion, Seizures, Other - Medications/Allergies Allergies/Adverse Reactions: Allergies Allergy/AdvReac Type Severity Reaction Status Date / Time No Known Allergies Allergy Verified 01/21/17 23:48 Medications: Current Medications Acetaminophen (Tylenol) 650 mg PO Q4H PRN PRN Reason: Headache/Fever or Pain Last Admin: 05/17/18 23:29 Dose: 650 mg Albuterol Sulfate (Proventil Hfa) 2 puff INH Q4HR PRN PRN Reason: Dyspnea/Wheezing/SOB Albuterol/Ipratropium (Duoneb) 3 ml NEB [id number] PRN PRN Reason: SOB &/or Wheezing Last Admin: 05/18/18 19:03 Dose: 3 ml Allopurinol (Zyloprim) 300 mg PO DAILY [facility] Last Admin: 05/19/18 07:50 Dose: 300 mg Amlodipine Besylate (Norvasc) 10 mg PO DAILY [facility] Last Admin: 05/19/18 07:50 Dose: 10 mg Aspirin (Ecotrin) 81 mg PO DAILY [facility] Last Admin: 05/19/18 07:51 Dose: 81 mg Atorvastatin Calcium (Lipitor) 10 mg PO DAILY [facility] Last Admin: 05/19/18 07:51 Dose: 10 mg Calcium/Vitamin D (Caltrate 600 + Vit D) 1 tab PO DAILY [facility] Last Admin: 05/19/18 07:51 Dose: 1 tab Dextrose/Water (Dextrose 50%) 25 gm SLOW IVP PRN PRN PRN Reason: Hypoglycemia Furosemide (Lasix) 40 mg PO 0900,1400 [facility] Glucagon (Glucagon) 1 mg IM PRN PRN PRN Reason: Hypoglycemia Hydralazine HCl (Apresoline) 50 mg PO BID [facility] Last Admin: 05/19/18 07:51 Dose: 50 mg Dextrose/Water (D5w) 1,000 mls @ 0 mls/hr IV .Q0M PRN PRN Reason: Hypoglycemia Insulin Human Lispro (Humalog) 0 units SC .MILD SLIDING SCALE PRN PRN Reason: Mild Correctional Scale Loperamide HCl (Imodium) 2 mg PO Q4H PRN PRN Reason: Diarrhea/Loose Stools Last Admin: 05/18/18 14:57 Dose: 2 mg Metoprolol Succinate (Toprol Xl) 100 mg PO BID [facility] Last Admin: 05/19/18 07:50 Dose: 100 mg Miscellaneous Medication (Pharmacy To Dose) 1 each PO PRN PRN PRN Reason: HX DVT Mometasone Furoate/Formoterol Fumar (Dulera 100 Mcg/5 Mcg Inhaler) 2 puff INH BID-RT [facility] Last Admin: 05/19/18 07:21 Dose: 2 puff Montelukast Sodium (Singulair) 10 mg PO QPM [facility] Last Admin: 05/18/18 21:23 Dose: 10 mg Potassium Chloride (K-Dur) 20 meq PO BID-WM [facility] Last Admin: 05/19/18 07:51 Dose: 20 meq Sertraline HCl (Zoloft) 50 mg PO DAILY [facility] Last Admin: 05/19/18 07:49 Dose: 50 mg Warfarin Sodium (Coumadin) 5 mg PO 1700 [facility] Last Admin: 05/18/18 17:34 Dose: 5 mg
[2018-05-19] MEDS ORDERED: Furosemide 20 MG TAB PO SCH (14:00)
[2018-05-19] MEDS: Furosemide 40 MG TAB PO SCH (14:42)
[2018-05-19] MEDS: Warfarin Sodium 5 MG TAB PO SCH (17:01)
[2018-05-19] MEDS: Loperamide HCl 2 MG CAP PO PRN (18:40)
[2018-05-19] MEDS ORDERED: Sodium Chloride 0.9% 10 ML ONE (20:25)
[2018-05-19] MEDS: Montelukast Sodium 10 mg Tablet PO SCH (20:38)
[2018-05-20 05:45] LABS: INR-International Normal Ratio 2.7; Prothrombin Time 28.5 SEC (12.0-14.7)
[2018-05-20] MEDS: Mometasone/Formoterol 120 PUFF INHALER INH SCH (06:55)
[2018-05-20 07:15] VITALS: TEMP 98
--- NOTE | 2018-05-20 08:22 | PRG ---
DATE OF SERVICE: 05/20/2018 The patient is doing better. She wants to go home. PHYSICAL EXAMINATION: VITAL SIGNS: Temperature 98.0, pulse 66, respirations 20, O2 saturation 97% on 3 liters, blood press ure 140/65. HEENT: Unremarkable. NECK: Without adenopathy or JVD. LUNGS: Clear anteriorly. CARDIOVASCULAR: S1 and S2 regular. ABDOMEN: Soft. EXTREMITIES: No edema. LABORATORY DATA: No labs were obtained today. ASSESSMENT: 1. Obstructive sleep apnea - noncompliant with CPAP. 2. Chronic diastolic heart failure. 3. Morbid obesity. PLAN: I assume she is going to be discharged. I have instructed her to follow up in my office so th at we can go to the proper criteria for ordering a sleep study. She likely needs a BiPAP titration. No other pulmonary recommendations at this time.
[2018-05-20] MEDS: Allopurinol 300 MG TAB PO SCH (08:44)
[2018-05-20] MEDS: Atorvastatin Calcium 10 MG TAB PO SCH (08:45)
[2018-05-20] MEDS: hydrALAZINE 25 MG TAB PO SCH (08:45)
[2018-05-20] MEDS: Potassium Chloride 20 MEQ TAB PO SCH (08:45)
[2018-05-20] MEDS: Furosemide 40 MG TAB PO SCH (08:45)
[2018-05-20] MEDS: Calcium Carbonate + Vit D 1 TAB PO SCH (08:45)
[2018-05-20] MEDS: Amlodipine 10 MG TAB PO SCH (08:45)
[2018-05-20] MEDS: Aspirin 81 mg Enteric Coated Tablet PO SCH (08:45)
[2018-05-20 11:37] VITALS: BP 125/71
--- NOTE | 2018-05-21 02:28 | DIS ---
DATE OF ADMISSION: 05/17/2018 DATE OF DISCHARGE: 05/20/2018 CONDITION AT THE TIME OF DISCHARGE: Stable and improved. PRIMARY CARE PHYSICIAN: Gabrielle Abarca MD DISCHARGE FOLLOWUP: 1. Outpatient cardiac rehabilitation. 2. [facility]. PRIMARY CARE PHYSICIAN. 1. Pulmonary medicine, Dr. Redmond. 2. Coumadin Clinic. INHOUSE CONSULTATIONS: 1. Pulmonary Medicine, Dr. Shrestha and Dr. Redmond. 2. Cardiology, Dr. Knutson. PROCEDURES DONE IN THE HOSPITAL: Transthoracic echocardiogram, which shows EF of 50%-55%, moderately enlarged right atrium, severely enlarged right ventricle, moderate tricuspid regurgitation and cor p ulmonale. DISCHARGE DIAGNOSES: 1. Acute on chronic hypoxic respiratory failure. 2. Acute on chronic diastolic congestive heart failure, NYHA class 3, stage III. 3. Chronic obstructive pulmonary disease exacerbation with bronchitis. 4. Chronic kidney disease. 5. Chronic anticoagulation with history of deep vein thrombosis. 6. Diabetes mellitus type 2. 7. Dyslipidemia. 8. Hypertension. 9. Morbid obesity with body mass index of 48. 10. Severe obstructive sleep apnea with noncompliance with CPAP. 11. Pulmonary arterial hypertension. DISCHARGE MEDICATIONS: Resume home medications. New medication: Lasix 40 mg daily. Home medicatio ns as follows: Allopurinol 300 mg daily, Advair Diskus 1 inhalation b.i.d., atorvastatin 10 mg daily , potassium chloride 20 mEq daily, hydralazine 50 p.o. b.i.d., Zoloft 50 mg daily, amlodipine 10 mg d aily, montelukast 10 mg daily, metoprolol succinate 100 mg p.o. b.i.d., aspirin 81 mg daily, Coumadin 5 mg daily. Continuing the medications, I have asked the patient if she needs any prescriptions as she reported that she has run out of two of her antihypertensives. The patient reported that she did get them filled one day prior to her admission in the hospital. HISTORY OF PRESENTING ILLNESS: Ms. Rodriguez is a 57-year-old female with known history of chronic respi ratory failure on home oxygen as well as morbid obesity, obstructive sleep apnea with CPAP noncomplia nce likely COPD, hypertension, and diabetes, who presented to the emergency room with complaints of s hortness of breath. She was found to have hypoxic with 82% on 3 liters and was started on BiPAP for stabilization and was admitted to [facility] for acute respiratory failure. She was found to have evidence of BNP elevation to 6094 with a chest x-ray suggesting pulmonary vascular congestion. She was start ed on diuresis IV initially. Please see admission history and physical for further detail. HOSPITAL COURSE: Ms. Rodriguez did very well after diuresis was started. She underwent Cardiology and P ulmonary Medicine consultation and echocardiogram. Echo showed suggestion of diastolic dysfunction w ith severe cor pulmonale likely secondary to her severe obstructive apnea. She was treated with CPAP at night after being titrated down from BiPAP to oxygen by nasal cannula. Dr. Redmond saw the patient and recommended outpatient followup closely and all of us emphasized the need for her CPAP at night versus a BiPAP titration for home to prevent further worsening of her dise ase. The patient exhibited poor understanding of the disease process, but by the time of discharge, she was back to her baseline. She was cleared by Pulmonary Medicine for discharge as well. Medicati ons were reconsulted. She is being started on Lasix on a daily basis. She will follow up with Heart Failure Clinic and outpatient cardiac rehabilitation as well. She will follow up with Cardiology an d Pulmonary Medicine as an outpatient as well. Coumadin was managed in the hospital by pharmacy. INR remained therapeutic throughout her hospitaliz ation. She was seen and examined prior to discharge. PHYSICAL EXAMINATION: VITAL SIGNS: This morning, temperature 98, heart rate 52, respirations 18, saturating 97% on 3 liter s nasal cannula, blood pressure 125/71. GENERAL: In no acute distress, awake, alert, oriented x3. CHEST: Clear to auscultation. Reduced breath sounds at bases. HEART: Rate and rhythm is regular. LABORATORY EXAMINATION: Blood culture negative at 48 hours. C. diff negative. DISCHARGE INSTRUCTIONS: Discharge plan was discussed with the patient. She verbalized understanding . Total time spent 38 minutes.
--- NOTE | 2018-05-24 11:32 | EKG ---
Test Reason : CP Blood Pressure : / mmHG Vent. Rate : 084 BPM Atrial Rate : 084 BPM P-R Int : 178 ms QRS Dur : 086 ms QT Int : 394 ms P-R-T Axes : 056 103 -36 degrees QTc Int : 465 ms Sinus rhythm with occasional Premature ventricular complexes and Premature atrial complexes Possible Left atrial enlargement Rightward axis RSR' or QR pattern in V1 suggests right ventricular conduction delay Prolonged QT Abnormal ECG Confirmed by RYANNE KOCH, MYRTLE ([id number]), international editorial producer AVILA PETERS ([id number]) on 05/24/2018 11:31:44 AM Referred By: MD PEARL Confirmed By:MYRTLE PEARL MD
== END 2018-05-20 13:24 | disposition home or self-care (01) | DRG 291 ==
LOC: ERS 23:15 → IMCU/EMU 05-17 00:20 → 2NO 05-17 01:23
PROVIDERS: ADMIT Hospitalist; ATTEND Hospitalist
PROC: 5A09357 Assistance with Respiratory Ventilation, Less than 24 Consecutive Hours, Continuous Positive Airway Pressure (ICD-10-PCS; principal; 2018-05-17)
DX: I13.0 Hypertensive heart and chronic kidney disease with heart failure and stage 1 through stage 4 chronic kidney disease, or unspecified chronic kidney disease (principal); I50.33 Acute on chronic diastolic (congestive) heart failure; J96.21 Acute and chronic respiratory failure with hypoxia; Z68.41 Body mass index [BMI] 40.0-44.9, adult; N17.9 Acute kidney failure, unspecified; J44.1 Chronic obstructive pulmonary disease with (acute) exacerbation; E11.9 Type 2 diabetes mellitus without complications; E11.65 Type 2 diabetes mellitus with hyperglycemia; E11.22 Type 2 diabetes mellitus with diabetic chronic kidney disease; E87.6 Hypokalemia; D63.1 Anemia in chronic kidney disease; N18.3 Chronic kidney disease, stage 3 (moderate); G47.33 Obstructive sleep apnea (adult) (pediatric); E66.01 Morbid (severe) obesity due to excess calories; Z79.01 Long term (current) use of anticoagulants; Z79.82 Long term (current) use of aspirin; Z79.4 Long term (current) use of insulin; Z86.718 Personal history of other venous thrombosis and embolism; Z87.891 Personal history of nicotine dependence
CPT/HCPCS: 36415; 36416; 71045; 80048; 80053; 82553; 82805; 83605; 83690; 83735; 83880; 84484; 85025; 85610; 85730; 87040; 87324; 87449; 93005; 93306; 93798; 94640; 94644; 94660; 94664; 96374; A4216; J1650; J1940; J7611; J7620

== ENCOUNTER 2018-08-23 03:15 | Inpatient (IN) | payer MEDICARE, MEDICAID ==
[2018-08-23] MEDS ORDERED: Magnesium 2 GM/50 ML BAG (IN WATER) ONE (03:32)
[2018-08-23] MEDS ORDERED: methylPREDNISolone Sod Succ/PF 125 MG/2 ML VIAL ONE (03:32)
[2018-08-23 03:46] LABS: CO2 Tension (PvCO2) 35.4 mmHg (41.0-51.0); Lactate 1.41 mmol/L (0.50-2.20); O2 Tension (PvO2) 41.6 mmHg (35.0-45.0); Potassium 3.1 mmol/L (3.4-4.7); T. Carbon Dioxide 29.1 mmol/L (1.0-85.0); pH (Venous) 7.507 (7.35-7.45)
[2018-08-23] MEDS ORDERED: Furosemide 40 MG/4 ML VIAL ONE (03:46)
[2018-08-23] MEDS ORDERED: Nitroglycerin 2% Ointment 1 INCH/1 GM Packet ONE (03:46)
[2018-08-23] MEDS ORDERED: Piperacillin/Tazobactam 3.375 GM VIAL ONE (03:46)
[2018-08-23 03:48] LABS: Hemoglobin 12.8 g/dL (12.0-16.0); Mean Corpuscular HGB CONC 30.8 g/dL (32.0-36.0); Mean Corpuscular Hemoglobin 25.6 pg (27.0-31.0); Mean Platelet Volume 10.7 fL (7.4-10.4); Platelet Count 331 thou/uL (130-400); RBC Distribution Width 18.9 % (11.5-14.5); White Blood Cell (WBC) Count 15.4 thou/uL (4.8-10.8)
[2018-08-23 04:08] LABS: ALT (SGPT) 12 U/L (8-55); AST (SGOT) 10 U/L (5-34); Albumin 3.8 g/dL (3.5-5.0); Alkaline Phosphatase 103 U/L (40-150); Anion Gap 18 mmol/L (10-20); BUN (Urea Nitrogen) 51 mg/dL (9.8-20.1); CK (CPK) 50 U/L (29-168); Calc. Creatinine Clearance 0 mL/min (70-130); Calcium 9.2 mg/dL (7.8-10.44); Carbon Dioxide 27 mmol/L (22-29); Chloride 99 mmol/L (98-107); Estimated GFR-MDRD 27; Globulin 3.4 g/dL (2.4-3.5); Glucose 203 mg/dL (70-105); Potassium 3.2 mmol/L (3.5-5.1); Protein, Total 7.2 g/dL (6.0-8.3); Sodium 141 mmol/L (136-145)
[2018-08-23 04:31] LABS: Anisocytosis SLIGHT = 6-15 cells (100X) (0-5/hpf); Band 5 % (5-11); Eosinophils 1 % (0-10); Hypochromia SLIGHT = 6-15 cells (100X) (0-5/hpf); Lymphocytes 8 % (21-51); MDiff Complete? YES; Monocytes 3 % (0-10); Neutrophil 83 % (42-75); PLT Morphology Comment Appears Adequate; Polychromasia SLIGHT = 2-3 cells (100X) (0-2/hpf)
[2018-08-23] MEDS ORDERED: Lorazepam 2 MG/ML VIAL ONE (04:41)
[2018-08-23] MEDS ORDERED: Vancomycin HCl 1.5 GM in Sodium Chloride 0.9% 250 ML 300 ML IVPB SCH ×2 (05:00→09:15)
[2018-08-23] MEDS ORDERED: HumaLOG 300 UNITS/3 ML VIAL SC PRN (07:25)
[2018-08-23] MEDS ORDERED: Dextrose 5% in Water 1,000 ML IV PRN (07:25)
[2018-08-23] MEDS ORDERED: Dextrose 50% Abboject 50 ML SYRINGE SLOW IVP PRN (07:25)
[2018-08-23 07:36] LABS: Troponin I 0.027 ng/mL (< 0.028)
[2018-08-23 07:50] VITALS: BMI 44.0
[2018-08-23] MEDS ORDERED: Ondansetron ODT 4 MG TAB PO PRN (07:50)
[2018-08-23] MEDS ORDERED: Ondansetron PF 4 MG/2 ML Vial IVP PRN ×2 (07:50→08:51)
[2018-08-23] MEDS ORDERED: Acetaminophen 325 MG TAB PO PRN ×2 (07:51→08:51)
[2018-08-23] MEDS ORDERED: Albuterol Sulfate 2.5 mg/3 ml Neb NEB PRN (07:51)
[2018-08-23] MEDS ORDERED: Nitroglycerin 0.4 MG TAB (25 Tab Bottle) SL PRN (08:51)
[2018-08-23] MEDS ORDERED: hydrALAZINE 20 MG/ML VIAL SLOW IVP PRN (08:51)
[2018-08-23] MEDS ORDERED: Bisacodyl 10 MG SUPP PR PRN (08:51)
[2018-08-23] MEDS ORDERED: Senokot S 8.6-50 MG TAB PO PRN (08:51)
[2018-08-23] MEDS ORDERED: Benzonatate 100 MG CAP PO PRN (08:51)
[2018-08-23] MEDS ORDERED: Bisacodyl 5 MG TAB PO PRN (08:51)
[2018-08-23] MEDS ORDERED: cloNIDine 0.1 MG TAB PO PRN (08:51)
[2018-08-23] MEDS ORDERED: VITAMIN D3 PO SCH (09:00)
[2018-08-23] MEDS ORDERED: Vancomycin HCl 1 GM in Premix Bag 1 BAG IVPB SCH ×2 (09:00→09:15)
[2018-08-23] MEDS ORDERED: [UNRECOGNIZED DRUG - OTHER] PO SCH (09:00)
[2018-08-23] MEDS ORDERED: CALCIUM CARBONATE PO SCH (09:00)
[2018-08-23 09:15] LABS: INR-International Normal Ratio 2.7
[2018-08-23] MEDS ORDERED: HOLD VANCOMYCIN FOR LEVEL >20 FS SCH (09:15)
[2018-08-23] MEDS ORDERED: Vancomycin HCl 1.25 GM in Sodium Chloride 0.9% 250 ML 250 ML IVPB SCH (09:15)
[2018-08-23] MEDS ORDERED: Vancomycin HCl 750 MG in Sodium Chloride 0.9% 250 ML 250 ML IVPB SCH (09:15)
[2018-08-23] MEDS ORDERED: Vancomycin HCl 2.5 GM in Sodium Chloride 0.9% 500 ML IVPB SCH (09:30)
[2018-08-23] MEDS ORDERED: Vancomycin Sliding Scale 1 EACH FS SCH (09:30)
[2018-08-23] MEDS: Calcium Carbonate + Vit D 1 TAB PO SCH (09:42)
[2018-08-23] MEDS: guaiFENesin ER 600 MG TAB PO SCH ×2 (09:42→20:18)
[2018-08-23] MEDS: Famotidine 20 MG TAB PO SCH ×2 (09:42→20:17)
[2018-08-23] MEDS: Aspirin 81 mg Enteric Coated Tablet PO SCH (09:42)
[2018-08-23] MEDS: Atorvastatin Calcium 10 MG TAB PO SCH (09:42)
[2018-08-23] MEDS: Furosemide 40 MG/4 ML VIAL SLOW IVP SCH (09:42)
--- NOTE | 2018-08-23 09:57 | RAD ---
PORTABLE UPRIGHT FRONTAL CHEST RADIOGRAPH: 08/23/2018 HISTORY: Congestive heart failure. Shortness of breath. COMPARISON: 05/16/2018 FINDINGS: There is no pneumothorax. There is pulmonary vascular congestion and perihilar interstitial prominen ce with hazy air space disease in the right mid lung, with hazy increased density in both lung bases, suggesting air space disease and pleural fluid. IMPRESSION: Increased density in the perihilar regions in both lung bases suggests pulmonary edema. Superimposed infectious pneumonitis/aspiration cannot be excluded. Recommend follow-up imaging following treatme nt to document resolution. POS: [facility]
[2018-08-23] MEDS: Enoxaparin Sodium 40 MG/0.4 ML SYRINGE SC SCH (10:28)
[2018-08-23 10:51] LABS: Troponin I 0.035 ng/mL (< 0.028)
--- NOTE | 2018-08-23 11:09 | CON ---
DATE OF CONSULTATION: Patient of Dr. Redmond. HISTORY OF PRESENT ILLNESS: A 58-year-old female, morbidly obese. She was discharged from the hospital 7 months ago, presented to the ER with marked shortness of breath, cough, yellow sputum production. No chills or sweats. No chest pain. Since her discharge, she has not seen Dr. Redmond in the office. Her oxygen saturation was 75% on 3 L on arrival, she is 117 kg. She apparently declined to have a BiPAP on arrival to the ER. Chest x-ray shows bilateral haziness consistent with either obesity or maybe small pleural effusion. She is now on BiPAP and says she is still having difficulty breathing. PAST MEDICAL HISTORY: Morbid obesity, COPD, congestive heart failure diastolic, diabetes, renal failure, hypertension, previous CVA. PAST SURGICAL HISTORY: Hysterectomy. SOCIAL HISTORY: No alcohol. Tobacco, pack a day. Quit smoking 10 years ago. HOME MEDICINES: Include: 1. Hydralazine 50 twice a day. 2. Coumadin 5 mg a day. 3. Potassium. 4. Singulair 10. 5. Metoprolol 100 twice a day. 6. Lasix 40. 7. Advair. 8. Lipitor 10. 9. Amlodipine 10. 10. Admitting doctor started on IV Medrol, vancomycin, and Zosyn. REVIEW OF SYSTEMS: Otherwise, unremarkable. PHYSICAL EXAMINATION: VITAL SIGNS: Saturation at present on noninvasive ventilation 95%, pulse 100, blood pressure is 128/80. CHEST: Minimal crackles. There is no wheezing. CARDIAC: Sinus tach. ABDOMEN: Massive. EXTREMITIES: Trace edema. IMAGING STUDIES: As noted, a chest x-ray shows haziness. LABORATORY DATA: White count 15,000, H and H of 12 and 41, platelet count is 131. Venous blood gases were done. Her creatinine is 2.28, slightly elevated from previous creatinine. BNP was 674. IMPRESSION: 1. Acute on chronic respiratory failure. 2. Diastolic dysfunction with morbid obesity, sleep apnea, diabetes, renal failure. PLAN: Continue present treatment. I would rapidly deescalate antibiotics. I doubt she has prior pneumonia. Pulmonary Critical Care will follow while in the MICU. This is a consultation note, 70 minutes, of which 50% in direct patient care. We will notify Dr. Redmond. Job ID: [id number]
[2018-08-23] MEDS: Amlodipine 10 MG TAB PO SCH (12:23)
[2018-08-23] MEDS: hydrALAZINE 25 MG TAB PO SCH ×2 (12:23→20:17)
[2018-08-23] MEDS: Allopurinol 300 MG TAB PO SCH (12:24)
[2018-08-23] MEDS: Piperacillin/Tazobactam 3.375 GM in Sodium Chloride 0.9% 100 ML IVPB SCH ×3 (13:14→23:37)
--- NOTE | 2018-08-23 14:32 | HP ---
PRIMARY CARE PHYSICIAN: Gabrielle Abarca MD CHIEF COMPLAINT: Shortness of breath and cough. HISTORY OF PRESENTING ILLNESS: Ms. Rodriguez is a pleasant 58-year-old female with known history of chronic diastolic congestive heart failure as well as chronic respiratory failure, on home oxygen; and severe obstructive sleep apnea with CPAP at home; and history of DVT, on chronic anticoagulation, as well as COPD, who presented to the emergency room with above-mentioned complaint. History is mainly obtained by the patient, but she is a poor historian, because she is wearing a BiPAP mask currently. History is supplemented by the ER records. Ms. Rodriguez presented to the emergency room via EMS yesterday. She has been having complaints of 1-day duration of sudden onset of shortness of breath, unchanged with breathing treatment. Denies any sick contacts. Denies any fever, chills, chest pain. She did have some cough and subjective fevers. She has CPAP at home, but does not like to wear it. On presentation to the ER, she was found to be hypoxic with oxygen saturation of 75% on 3 L. Her chest x-ray was done, which showed a possibility of right lower lobe pneumonia as well as bilateral pulmonary edema. She was given nebulizers, IV steroids, magnesium sulfate, and empiric IV antibiotics in the ER and is now being admitted for further evaluation and workup. She was last hospitalized to our facility in March 2018, at which time, she was also treated for acute on chronic diastolic congestive heart failure and COPD exacerbation. At that time, she was instructed to go follow up with Dr. Redmond in the [facility], but has failed to do so. PAST MEDICAL HISTORY: 1. Chronic congestive diastolic heart failure, ACC stage B. 2. COPD. 3. Chronic hypoxic respiratory failure, on home oxygen. 4. Chronic kidney disease, stage 2. 5. Chronic anticoagulation with history of DVT. 6. Diabetes mellitus type 2. 7. Dyslipidemia. 8. Hypertension. 9. Morbid obesity. 10. Severe sleep apnea with noncompliance with CPAP. 11. Pulmonary arterial hypertension. PAST SURGICAL HISTORY: Hysterectomy. SOCIAL HISTORY: She lives at home and denies any drug, alcohol, or drug abuse. She is a former cigarette smoker. FAMILY HISTORY: Significant for coronary artery disease in her sister and mother with history of cancer. ALLERGIES: NO KNOWN MEDICATION ALLERGIES. HOME MEDICATIONS: As follows. 1. Hydralazine 50 mg p.o. b.i.d. 2. Warfarin 5 mg daily. 3. Potassium chloride 20 mEq p.o. b.i.d. 4. Montelukast 10 mg daily. 5. Metoprolol succinate 100 mg p.o. b.i.d. 6. Lasix 40 mg daily. 7. Advair Diskus 250/50 b.i.d. 8. Lipitor 10 mg daily. 9. Aspirin 81 mg daily. 10. Amlodipine 10 mg daily. 11. Allopurinol 300 mg daily. 12. Albuterol puff as needed. CODE STATUS: Full code. Discussed with the patient. REVIEW OF SYSTEMS: A 12-point review of system was done with some difficulty given the patient's BiPAP status. It is negative except for those mentioned in the history and physical. LABORATORY DATA: CBC shows WBCs of 15.4 with 83% neutrophils. INR is 2.7. Serum chemistry showed potassium of 3.1. BUN 51, creatinine 2.28 with estimated GFR of 27. Blood sugar 203. Liver enzymes within normal limits. Troponin is 0.018, then repeat troponin is 0.027. BNP 674. Lactic acid normal at 1.41. Chest x-ray by my review shows bilateral pulmonary venous congestion. PHYSICAL EXAMINATION: VITAL SIGNS: Most recent vital signs; blood pressure 121/85, temperature 96.6, pulse of 106, respirations 32, saturating 92% on BiPAP. GENERAL: She is having [id number] respiratory distress even on the BiPAP. She is awake, but easily somnolent. She is alert and oriented. She is sitting up in the chair. HEENT: BiPAP mask is on. Mucous membrane appears moist. Pupils are equal and reactive to light and accommodation bilaterally. Head is normocephalic and atraumatic. NECK: Supple without any lymphadenopathy, JVD, or bruit. CHEST: Showed bilateral basilar crackles without any significant wheezing. CARDIAC: Rate and rhythm are regular with sinus tachycardia. ABDOMEN: Soft, nontender, nondistended. EXTREMITIES: Free of any cyanosis, clubbing, or edema. NEUROLOGICAL: Nonfocal. SKIN: Free of any rashes or bruises. Feels warm and dry to touch. PSYCHIATRIC: Normal affect. IMPRESSION AND PLAN: 1. Acute on chronic hypoxic respiratory failure. This is likely secondary to [id number]-[id number] fluid overload and worsening of congestive heart failure along with chronic obstructive pulmonary disease exacerbation. 2. Acute on chronic chronic obstructive pulmonary disease exacerbation. Nebulizers, Dulera, Singulair, and IV steroids along with BiPAP support as above. 3. Pneumonia, possibility as stated in the ER records. We will continue the treatment with IV steroids and nebulizers. Add Dulera and request consultation of Pulmonary Medicine. I also empirically treat with antibiotics for now. She will be diuresed with close monitoring of her renal function. 4. Hypokalemia. Restart her home medication of potassium chloride and monitor. 5. Acute diastolic congestive heart failure exacerbation. Continue BiPAP support. If the patient's condition worsen or she becomes somnolent, we will check ABG and she may need elective intubation. Currently, she is stable. We will continue to diurese and perform strict I's and O's. 6. Uncontrolled diabetes. Restart home medication and start her on insulin sliding scale as well. 7. Acute on chronic kidney disease. Her baseline creatinine seems to be around 1.5 to 2.0. Most likely due to hypoxia and hypoperfusion. Monitor renal function closely. 8. Morbid obesity. The patient is being counseled and we will discuss that once she is feeling a little bit better. 9. History of hypertension. Restart her home medication and monitor closely. 10. Add deep venous thrombosis and gastrointestinal prophylaxis. The patient is already on Coumadin. We will add Pepcid b.i.d. 11. History of deep venous thrombosis, on chronic anticoagulation. Monitor PT, INR daily. We will have pharmacy to monitor the INR with us. She is currently therapeutic, so the possibility of a pulmonary embolism is negligible. 12. Add p.r.n. medication orders. Job ID: [id number]
[2018-08-23] MEDS ORDERED: Warfarin Sodium 5 MG TAB PO SCH (17:00)
[2018-08-23] MEDS ORDERED: [UNRECOGNIZED DRUG - OTHER] PO SCH (17:00)
[2018-08-23] MEDS: Potassium Chloride 20 MEQ TAB PO SCH (17:59)
[2018-08-23] MEDS: Mometasone/Formoterol 120 PUFF INHALER INH SCH (18:48)
[2018-08-23] MEDS: Montelukast Sodium 10 mg Tablet PO SCH (20:17)
[2018-08-24 04:56] LABS: #Lymphocytes 0.8 thou/uL (1.20-3.40); #Monocytes 0.3 thou/uL (0.11-0.59); #Neutrophils 15.7 thou/uL (1.40-6.50); %Eosinophils 0.3 % (0.0-10.0); %Lymphocytes 4.6 % (21.0-51.0); %Monocytes 1.7 % (0.0-10.0); %Neutrophils 93.4 % (42.0-75.0); Hemoglobin 11.6 g/dL (12.0-16.0); Mean Corpuscular HGB CONC 30.7 g/dL (32.0-36.0); Mean Corpuscular Hemoglobin 25.5 pg (27.0-31.0); Mean Corpuscular Volume 83.1 fL (78.0-98.0); Mean Platelet Volume 11.4 fL (7.4-10.4); Platelet Count 255 thou/uL (130-400); RBC Distribution Width 18.9 % (11.5-14.5); Red Blood Cell (RBC) Count 4.56 mill/uL (4.20-5.40); White Blood Cell (WBC) Count 16.8 thou/uL (4.8-10.8)
[2018-08-24 05:00] LABS: Prothrombin Time 42.1 SEC (12.0-14.7)
[2018-08-24 05:18] LABS: Anion Gap 15 mmol/L (10-20); BUN (Urea Nitrogen) 65 mg/dL (9.8-20.1); Calc. Creatinine Clearance 46 mL/min (70-130); Calcium 9.7 mg/dL (7.8-10.44); Carbon Dioxide 28 mmol/L (22-29); Chloride 100 mmol/L (98-107); Estimated GFR-MDRD 24; Glucose 224 mg/dL (70-105); Potassium 4.2 mmol/L (3.5-5.1); Sodium 139 mmol/L (136-145)
[2018-08-24 05:28] LABS: INR-International Normal Ratio 4.4
[2018-08-24] MEDS: Piperacillin/Tazobactam 3.375 GM in Sodium Chloride 0.9% 100 ML IVPB SCH (05:45)
[2018-08-24] MEDS: Mometasone/Formoterol 120 PUFF INHALER INH SCH ×2 (06:40→18:46)
--- NOTE | 2018-08-24 09:14 | RAD ---
PORTABLE CHEST 1 VIEW: Date: 08/24/18 Time: 0448 hours HISTORY: Respiratory distress. FINDINGS/IMPRESSION: Comparison made with exam from previous day. Allowing for differences in technique, no significant interval change is seen. POS: [facility]
[2018-08-24 09:28] LABS: Vancomycin, Trough 12.7 ug/mL
[2018-08-24] MEDS: Atorvastatin Calcium 10 MG TAB PO SCH (09:33)
[2018-08-24] MEDS: Amlodipine 10 MG TAB PO SCH (09:33)
[2018-08-24] MEDS: Aspirin 81 mg Enteric Coated Tablet PO SCH (09:33)
[2018-08-24] MEDS: Potassium Chloride 20 MEQ TAB PO SCH ×2 (09:33→17:17)
[2018-08-24] MEDS: Famotidine 20 MG TAB PO SCH ×2 (09:34→20:16)
[2018-08-24] MEDS: Allopurinol 300 MG TAB PO SCH (09:34)
[2018-08-24] MEDS: hydrALAZINE 25 MG TAB PO SCH ×2 (09:34→20:16)
[2018-08-24] MEDS: Calcium Carbonate + Vit D 1 TAB PO SCH (09:34)
[2018-08-24] MEDS: Furosemide 40 MG/4 ML VIAL SLOW IVP SCH (09:34)
[2018-08-24] MEDS: guaiFENesin ER 600 MG TAB PO SCH ×2 (09:34→20:16)
[2018-08-24] MEDS: Enoxaparin Sodium 40 MG/0.4 ML SYRINGE SC SCH (09:35)
[2018-08-24] MEDS: HumaLOG 300 UNITS/3 ML VIAL SC PRN ×3 (09:37→17:17)
--- NOTE | 2018-08-24 10:34 | PRG ---
DATE OF SERVICE: 08/24/2018 SUBJECTIVE: This morning, the patient is awake, alert, and responsive. She is better off the BiPAP. OBJECTIVE: VITAL SIGNS: Blood pressure is 115/75, pulse 60, temperature 97, and saturations are 92%. All cultures are negative. CHEST: Decreased breath sounds. No wheezing. CARDIAC: Normal S1 and S2. No gallops. ABDOMEN: No masses. LABORATORY DATA: Creatinine is 2.52. INR is 4.4. White count is 16,000. DIAGNOSTIC DATA: X-ray shows a right-sided pneumonia. IMPRESSION: 1. Respiratory failure, right-sided pneumonia. 2. Sleep apnea, renal failure, prolonged PT/INR. PLAN: Continue to hold the Coumadin. I would start to deescalate antibiotics, particularly, I would discontinue the vancomycin. Continue PT, nocturnal BiPAP. We will follow. Job ID: [id number]
--- NOTE | 2018-08-24 10:42 | PDOC.PN ---
- Subjective Encounter Start Date: 08/24/18 Encounter Start Time: 10:40 Subjective: feels much better today.denies any chest pain. -: still SOB - Objective Resuscitation Status - Order Detail: 08/23/18 13:52 Resuscitation Status Routine Resuscitation Status: FULL: Full Resuscitation Discussed with: discussed w pt YADI Reviewed: Yes Vital Signs & Weight: Vital Signs (12 hours) Temp Pulse Resp BP BP BP Pulse Ox 08/24/18 09:33 63 115/75 08/24/18 07:13 97.5 F L 64 25 H 123/80 92 L 08/24/18 06:40 62 21 H 92 L 08/24/18 06:19 62 92 L 08/24/18 06:17 62 21 H 92 L 08/24/18 03:53 98.4 F 66 23 H 125/67 95 08/24/18 00:50 81 08/24/18 00:49 73 27 H 92 L 08/24/18 00:12 98.2 F 74 24 H 108/71 96 Weight Admit Weight 256 lb 12.8 oz Weight 256 lb 12.8 oz I&O: 08/23/18 08/24/18 08/25/18 06:59 06:59 06:59 Intake Total 460 Output Total 1 400 Balance 459 -400 Result Diagrams: 08/24/18 04:21 08/24/18 04:21 Additional Labs: Accuchecks 08/24/18 08/23/18 08/23/18 05:51 22:07 16:30 POC Glucose 240 H 236 H 333 H 08/23/18 11:10 POC Glucose 383 H Microbiology 05/18/18 18:45 Stool C. difficile GDH Antigen & Toxins - Final 05/16/18 23:51 Venous blood - Left Arm Blood Culture - Preliminary NO GROWTH AT 48 HOURS 05/16/18 23:40 Venous blood - Right Hand Blood Culture - Preliminary NO GROWTH AT 48 HOURS Laboratory Tests 06/12/18 08/23/18 08/23/18 09:42 03:30 03:30 Creatinine 1.61 H 2.28 H Troponin I 0.018 B-Natriuretic Peptide 08/23/18 08/23/18 08/23/18 06:51 07:30 10:15 Creatinine Troponin I 0.027 0.035 H B-Natriuretic Peptide 674.6 H 08/24/18 04:21 Creatinine 2.52 H Troponin I B-Natriuretic Peptide Phys Exam - Physical Examination sitting up in chair w Bipap.looks much more awake & smiling Mild respiratory distress w conversation HEENT: PERRLA, moist MMs, sclera anicteric, oral pharynx no lesions Neck: no nodes, no JVD, supple, full ROM Respiratory: no wheezing, no rales, no rhonchi Cardiovascular: RRR, no significant murmur Gastrointestinal: soft, non-tender, no distention, positive bowel sounds Musculoskeletal: no edema, pulses present Neurological: non-focal, normal sensation, moves all 4 limbs Psychiatric: normal affect, A&O x 3 Dx/Plan (1) Acute and chronic respiratory failure Code(s): J96.20 - ACUTE AND CHR RESP FAILURE, UNSP W HYPOXIA OR HYPERCAPNIA Status: Acute Comment: Multifactorial. MARTHA with Acute diastolic CHF (2) Acute on chronic diastolic (congestive) heart failure Code(s): I50.33 - ACUTE ON CHRONIC DIASTOLIC (CONGESTIVE) HEART FAILURE Status : Acute (3) Acute renal failure superimposed on stage 3 chronic kidney disease Code(s): N17.9 - ACUTE KIDNEY FAILURE, UNSPECIFIED; N18.3 - CHRONIC KIDNEY DISEASE, STAGE 3 (MODERATE) Status: Acute Comment: Dr. Miranda consulted; creatinine stable (4) COPD exacerbation Code(s): J44.1 - CHRONIC OBSTRUCTIVE PULMONARY DISEASE W (ACUTE) EXACERBATION Status: Acute (5) Supratherapeutic INR Code(s): R79.1 - ABNORMAL COAGULATION PROFILE Status: Acute (6) COPD (chronic obstructive pulmonary disease) Status: Chronic (7) Chronic anticoagulation Code(s): Z79.01 - [employer] (CURRENT) USE OF ANTICOAGULANTS Status: Chronic (8) DM type 2 (diabetes mellitus, type 2) Status: Chronic Qualifiers: Diabetes mellitus fci insulin use: with fci use Diabetes mellitus complication status: with kidney complications Diabetes mellitus complication detail: with chronic kidney disease Chronic kidney disease stage : stage 3 (moderate) Qualified Code(s): E11.22 - Type 2 diabetes mellitus with diabetic chronic kidney disease; N18.3 - Chronic kidney disease, stage 3 ( moderate); Z79.4 - detention (current) use of insulin Comment: Controlled. (9) HLD (hyperlipidemia) Code(s): E78.5 - HYPERLIPIDEMIA, UNSPECIFIED Status: Chronic (10) Hypertension Code(s): I10 - ESSENTIAL (PRIMARY) HYPERTENSION Status: Chronic Comment: Spiking today. Will increase meds by adding small dose of hydralazine TID. (11) Microcytic anemia Code(s): D50.9 - IRON DEFICIENCY ANEMIA, UNSPECIFIED Status: Chronic Comment : Progressive slow decline in H/H over past several weeks. She is on oral iron. No overt blood loss. May need IV iron. Probably also needs GI to evaluate for endoscopy -- can be done as an outpatient. (12) Morbid obesity Code(s): E66.01 - MORBID (SEVERE) OBESITY DUE TO EXCESS CALORIES Status: Chronic Comment: BMI = 48kg/m2 (13) MARTHA (obstructive sleep apnea) Code(s): G47.33 - OBSTRUCTIVE SLEEP APNEA (ADULT) (PEDIATRIC) Status: Chronic Comment: She tells me that she uses O2 and has CPAP at home which she does not use (14) Pulmonary arterial hypertension Code(s): I27.2 - OTHER SECONDARY PULMONARY HYPERTENSION * DO NOT USE * Status : Chronic - Plan PT/OT, respiratory therapy, incentive spirometry, out of bed/ambulate, DVT proph w/SCDs clinicaly better.CXR stable-reviewed. -: cont Biapa hs.pt educated extensively about use of home CPAP -: cont nebs,steroids,O2 prn.Agree w stopping ABx-no PNA -: home meds as below.Hold coumadin as INR high.monitor daily INR -: reduce Toprol to 50 daily given low BP-cor pulmonale * .BP meds w parameters. * am labs Review of Systems - Review of Systems Constitutional: weakness, malaise. negative: fever, chills, sweats, other ENT: negative: Ear Pain, Ear Discharge, Nose Pain, Nose Discharge, Nose Congestion, Mouth Pain, Mouth Swelling, Throat Pain, Throat Swelling, Other Respiratory: Shortness of Breath, SOB with Excertion. negative: Cough, Dry, Hemoptysis, Pleuritic Pain, Sputum, Wheezing Cardiovascular: negative: chest pain, palpitations, orthopnea, paroxysmal nocturnal dyspnea, edema, light headedness, other Gastrointestinal: negative: Nausea, Vomiting, Abdominal Pain, Diarrhea, Constipation, Melena, Hematochezia, Other Genitourinary: negative: Dysuria, Frequency, Incontinence, Hematuria, Retention , Other Musculoskeletal: negative: Neck Pain, Shoulder Pain, Arm Pain, Back Pain, Hand Pain, Leg Pain, Foot Pain, Other Neurological: negative: Weakness, Numbness, Incoordination, Change in Speech, Confusion, Seizures, Other - Medications/Allergies Allergies/Adverse Reactions: Allergies Allergy/AdvReac Type Severity Reaction Status Date / Time No Known Allergies Allergy Verified 08/23/18 07:43 Medications: Current Medications Acetaminophen (Tylenol) 650 mg PO Q4H PRN PRN Reason: Headache/Fever/Mild Pain (1-3) Albuterol/Ipratropium (Duoneb) 3 ml NEB [id number] PRN PRN Reason: SOB &/or Wheezing Albuterol/Ipratropium (Duoneb) 3 ml NEB [id number] [facility] Last Admin: 08/24/18 06:17 Dose: 3 ml Allopurinol (Zyloprim) 300 mg PO DAILY [facility] Last Admin: 08/24/18 09:34 Dose: 300 mg Amlodipine Besylate (Norvasc) 10 mg PO DAILY [facility] Last Admin: 08/24/18 09:33 Dose: 10 mg Aspirin (Ecotrin) 81 mg PO DAILY [facility] Last Admin: 08/24/18 09:33 Dose: 81 mg Atorvastatin Calcium (Lipitor) 10 mg PO DAILY [facility] Last Admin: 08/24/18 09:33 Dose: 10 mg Benzonatate (Tessalon) 100 mg PO Q6H PRN PRN Reason: Cough Bisacodyl (Dulcolax) 10 mg PO DAILYPRN PRN PRN Reason: Constipation Bisacodyl (Dulcolax) 10 mg AK DAILYPRN PRN PRN Reason: Constipation Calcium/Vitamin D (Caltrate 600 + Vit D) 2 tab PO DAILY [facility] Last Admin: 08/24/18 09:34 Dose: 2 tab Clonidine (Catapres) 0.1 mg PO Q4H PRN PRN Reason: SBP >160 ____ Dextrose/Water (Dextrose 50%) 25 gm SLOW IVP PRN PRN PRN Reason: Hypoglycemia Enoxaparin Sodium (Lovenox) 40 mg SC 0900 [facility] Last Admin: 08/24/18 09:35 Dose: 40 mg Famotidine (Pepcid) 20 mg PO BID [facility] Last Admin: 08/24/18 09:34 Dose: 20 mg Furosemide (Lasix) 40 mg SLOW IVP DAILY [facility] Last Admin: 08/24/18 09:34 Dose: 40 mg Glucagon (Glucagon) 1 mg IM PRN PRN PRN Reason: Hypoglycemia Guaifenesin (Mucinex) 600 mg PO Q12HR [facility] Last Admin: 08/24/18 09:34 Dose: 600 mg Hydralazine HCl (Apresoline) 10 mg SLOW IVP Q4H PRN PRN Reason: SBP > 180 and HR < 70 Hydralazine HCl (Apresoline) 50 mg PO BID [facility] Last Admin: 08/24/18 09:34 Dose: 50 mg Dextrose/Water (D5w) 1,000 mls @ 0 mls/hr IV .Q0M PRN PRN Reason: Hypoglycemia Vancomycin HCl 1.5 gm/ Sodium (Chloride) 300 mls @ 200 mls/hr IVPB WILLCALL [facility] Vancomycin HCl 1.25 gm/ Sodium (Chloride) 250 mls @ 166.667 mls/hr IVPB [facility]CALL [facility] Vancomycin HCl 1 gm/ Device 200 mls @ 200 mls/hr IVPB WILLCALL [facility] Vancomycin HCl 750 mg/ Sodium (Chloride) 250 mls @ 250 mls/hr IVPB [facility]CALL [facility] Insulin Human Lispro (Humalog) 0 units SC .MODERATE SLIDING SC PRN PRN Reason: Moderate [facility] Last Admin: 08/24/18 09:37 Dose: 4 units Insulin Human Lispro (Humalog) 0 units SC .BEDTIME SLIDING SC PRN PRN Reason: Bedtime Correctional Scale Levofloxacin (Levaquin) 500 mg PO 0600 [facility] Metoprolol Succinate (Toprol Xl) 50 mg PO DAILY [facility] Last Admin: 08/24/18 09:34 Dose: 50 mg Miscellaneous Medication (Vancomycin Sliding Scale) 1 each FS ASDIR RAHUL Miscellaneous Medication (Pharmacy To Dose) 0 each PO ASDIR RAHUL Miscellaneous Medication (Pharmacy To Dose) 0 each IVPB ASDIR RAHUL Mometasone Furoate/Formoterol Fumar (Dulera 200 Mcg/5 Mcg Inhaler) 2 puff INH BID-RT [facility] Last Admin: 08/24/18 06:40 Dose: 2 puff Montelukast Sodium (Singulair) 10 mg PO QPM [facility] Last Admin: 08/23/18 20:17 Dose: 10 mg Nitroglycerin (Nitrostat) 0.4 mg SL Q5MIN PRN PRN Reason: Chest Pain Hold Vancomycin For (Level >20) 0 each FS .AT DIALYSIS [facility] Ondansetron HCl (Zofran) 4 mg IVP Q6H PRN PRN Reason: Nausea/Vomiting Potassium Chloride (K-Dur) 20 meq PO BID-[facility] Last Admin: 08/24/18 09:33 Dose: 20 meq Prednisone (Prednisone) 20 mg PO QAM-[facility] Senna/Docusate Sodium (Senokot S) 2 tab PO BID PRN PRN Reason: Constipation Sodium Chloride (Flush - Normal Saline) 10 ml IVF Q12HR [facility] Last Admin: 08/24/18 09:36 Dose: 10 ml Sodium Chloride (Flush - Normal Saline) 10 ml IVF PRN PRN PRN Reason: Saline Flush
[2018-08-24] MEDS ORDERED: Vancomycin HCl 1.25 GM in Sodium Chloride 0.9% 250 ML 250 ML IVPB SCH (20:00)
[2018-08-24] MEDS: Montelukast Sodium 10 mg Tablet PO SCH (20:16)
[2018-08-25 04:54] LABS: Prothrombin Time 60.9 SEC (12.0-14.7)
[2018-08-25 05:12] LABS: INR-International Normal Ratio 7.1
[2018-08-25] MEDS: Mometasone/Formoterol 120 PUFF INHALER INH SCH ×2 (08:10→18:52)
[2018-08-25] MEDS ORDERED: Phytonadione 10 MG/ML AMP PO SCH (08:45)
[2018-08-25] MEDS: Enoxaparin Sodium 40 MG/0.4 ML SYRINGE SC SCH (09:27)
[2018-08-25] MEDS: Furosemide 40 MG/4 ML VIAL SLOW IVP SCH (09:30)
[2018-08-25] MEDS: Atorvastatin Calcium 10 MG TAB PO SCH (09:30)
[2018-08-25] MEDS: Amlodipine 10 MG TAB PO SCH (09:31)
[2018-08-25] MEDS: predniSONE 20 MG TAB PO SCH (09:31)
[2018-08-25] MEDS: hydrALAZINE 25 MG TAB PO SCH ×2 (09:33→20:05)
[2018-08-25] MEDS: guaiFENesin ER 600 MG TAB PO SCH ×2 (09:33→20:06)
[2018-08-25] MEDS: Calcium Carbonate + Vit D 1 TAB PO SCH (09:34)
[2018-08-25] MEDS: Potassium Chloride 20 MEQ TAB PO SCH ×2 (09:34→16:26)
[2018-08-25] MEDS: Aspirin 81 mg Enteric Coated Tablet PO SCH (09:34)
[2018-08-25] MEDS: Famotidine 20 MG TAB PO SCH ×2 (09:34→20:06)
[2018-08-25] MEDS: Allopurinol 300 MG TAB PO SCH (09:35)
[2018-08-25] MEDS: Furosemide 40 MG TAB PO SCH (09:45)
--- NOTE | 2018-08-25 09:49 | RAD ---
PORTABLE CHEST 1 VIEW: Date: 08/25/18 Time: 0558 hours HISTORY: Respiratory distress. FINDINGS/IMPRESSION: Comparison made with exam from previous day. The heart is enlarged. There is interval improvement in the pulmonary edema. No pneumothoraces, lobar consolidation, or large effusions are seen. POS: [facility]
--- NOTE | 2018-08-25 12:03 | PDOC.PN ---
- Subjective Encounter Start Date: 08/25/18 Encounter Start Time: 12:01 Subjective: feels much better and eager to go home -: wore CPAP/bipap overnight w/o difficulty - Objective Resuscitation Status - Order Detail: 08/23/18 13:52 Resuscitation Status Routine Resuscitation Status: FULL: Full Resuscitation Discussed with: discussed w pt YADI Reviewed: Yes Vital Signs & Weight: Vital Signs (12 hours) Temp Pulse Resp BP BP BP Pulse Ox 08/25/18 10:53 97.9 F 58 L 18 123/78 93 L 08/25/18 09:31 65 114/76 08/25/18 08:11 91 L 08/25/18 08:04 68 20 98 08/25/18 07:54 94 L 08/25/18 07:37 98.0 F 57 L 29 H 107/66 94 L 08/25/18 04:00 97.2 F L 56 L 16 107/75 96 08/25/18 03:49 20 08/25/18 00:16 57 L 19 97 Weight Admit Weight 256 lb 12.8 oz Weight 256 lb 12.8 oz I&O: 08/24/18 08/25/18 08/26/18 06:59 06:59 06:59 Intake Total 460 1540 Output Total 1 1100 Balance 459 440 Result Diagrams: 08/24/18 04:21 08/24/18 04:21 Additional Labs: Accuchecks 08/25/18 08/25/18 08/24/18 10:36 05:35 20:23 POC Glucose 205 H 140 H 216 H 08/24/18 15:43 POC Glucose 179 H Microbiology 08/23/18 04:02 Nasopharyngeal wash Respiratory Syncytial Virus Ag - Final 08/23/18 03:50 Nasal swab Influenza Types A,B Direct EIA - Final 08/23/18 03:30 Venous blood - Right Arm Blood Culture - Preliminary Specimen has been received and culture in progress. No Growth to date. 08/23/18 03:30 Venous blood - Left Arm Blood Culture - Preliminary Specimen has been received and culture in progress. No Growth to date. Phys Exam - Physical Examination Constitutional: NAD HEENT: PERRLA, moist MMs, sclera anicteric, oral pharynx no lesions Neck: no nodes, no JVD, supple, full ROM Respiratory: no wheezing, no rales, no rhonchi, clear to auscultation bilateral Cardiovascular: RRR, no significant murmur Gastrointestinal: soft, non-tender, no distention, positive bowel sounds Musculoskeletal: no edema, pulses present Neurological: non-focal, normal sensation, moves all 4 limbs Psychiatric: normal affect, A&O x 3 Skin: no rash Dx/Plan (1) Acute and chronic respiratory failure Code(s): J96.20 - ACUTE AND CHR RESP FAILURE, UNSP W HYPOXIA OR HYPERCAPNIA Status: Acute Comment: Multifactorial. MARTHA with Acute diastolic CHF (2) Acute on chronic diastolic (congestive) heart failure Code(s): I50.33 - ACUTE ON CHRONIC DIASTOLIC (CONGESTIVE) HEART FAILURE Status : Acute (3) Acute renal failure superimposed on stage 3 chronic kidney disease Code(s): N17.9 - ACUTE KIDNEY FAILURE, UNSPECIFIED; N18.3 - CHRONIC KIDNEY DISEASE, STAGE 3 (MODERATE) Status: Acute Comment: Dr. 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 (9) HLD (hyperlipidemia) Code(s): E78.5 - HYPERLIPIDEMIA, UNSPECIFIED Status: Chronic (10) Hypertension Code(s): I10 - ESSENTIAL (PRIMARY) HYPERTENSION Status: Chronic Comment: Spiking today. Will increase meds by adding small dose of hydralazine TID. (11) Microcytic anemia Code(s): D50.9 - IRON DEFICIENCY ANEMIA, UNSPECIFIED Status: Chronic Comment : Progressive slow decline in H/H over past several weeks. She is on oral iron. No overt blood loss. May need IV iron. Probably also needs GI to evaluate for endoscopy -- can be done as an outpatient. (12) Morbid obesity Code(s): E66.01 - MORBID (SEVERE) OBESITY DUE TO EXCESS CALORIES Status: Chronic Comment: BMI = 48kg/m2 (13) MARTHA (obstructive sleep apnea) Code(s): G47.33 - OBSTRUCTIVE SLEEP APNEA (ADULT) (PEDIATRIC) Status: Chronic Comment: She tells me that she uses O2 and has CPAP at home which she does not use (14) Pulmonary arterial hypertension Code(s): I27.2 - OTHER SECONDARY PULMONARY HYPERTENSION * DO NOT USE * Status : Chronic - Plan DVT proph w/SCDs clinically better.cont cpap at night -: INR very high but no evidence of bleed.will give 1 dose Vit K -: change lasix to PO.cont home meds as below -: con ESQUIVEL in next 24 hours if stable & INR better.cont to hold coumadin -: am labs.on Steroids,nebs.ABx * . Review of Systems - Review of Systems Constitutional: weakness. negative: fever, chills, sweats, malaise, other ENT: negative: Ear Pain, Ear Discharge, Nose Pain, Nose Discharge, Nose Congestion, Mouth Pain, Mouth Swelling, Throat Pain, Throat Swelling, Other Respiratory: SOB with Excertion. negative: Cough, Dry, Shortness of Breath, Hemoptysis, Pleuritic Pain, Sputum, Wheezing Cardiovascular: negative: chest pain, palpitations, orthopnea, paroxysmal nocturnal dyspnea, edema, light headedness, other Gastrointestinal: negative: Nausea, Vomiting, Abdominal Pain, Diarrhea, Constipation, Melena, Hematochezia, Other Genitourinary: negative: Dysuria, Frequency, Incontinence, Hematuria, Retention , Other Neurological: negative: Weakness, Numbness, Incoordination, Change in Speech, Confusion, Seizures, Other - Medications/Allergies Allergies/Adverse Reactions: Allergies Allergy/AdvReac Type Severity Reaction Status Date / Time No Known Allergies Allergy Verified 08/23/18 07:43 Medications: Current Medications Acetaminophen (Tylenol) 650 mg PO Q4H PRN PRN Reason: Headache/Fever/Mild Pain (1-3) Albuterol/Ipratropium (Duoneb) 3 ml NEB [id number] PRN PRN Reason: SOB &/or Wheezing Albuterol/Ipratropium (Duoneb) 3 ml NEB [id number] [facility] Last Admin: 08/25/18 08:04 Dose: 3 ml Allopurinol (Zyloprim) 300 mg PO DAILY [facility] Last Admin: 08/25/18 09:35 Dose: 300 mg Amlodipine Besylate (Norvasc) 10 mg PO DAILY [facility] Last Admin: 08/25/18 09:31 Dose: 10 mg Aspirin (Ecotrin) 81 mg PO DAILY [facility] Last Admin: 08/25/18 09:34 Dose: 81 mg Atorvastatin Calcium (Lipitor) 10 mg PO DAILY [facility] Last Admin: 08/25/18 09:30 Dose: 10 mg Benzonatate (Tessalon) 100 mg PO Q6H PRN PRN Reason: Cough Bisacodyl (Dulcolax) 10 mg PO DAILYPRN PRN PRN Reason: Constipation Bisacodyl (Dulcolax) 10 mg OH DAILYPRN PRN PRN Reason: Constipation Calcium/Vitamin D (Caltrate 600 + Vit D) 2 tab PO DAILY [facility] Last Admin: 08/25/18 09:34 Dose: 2 tab Clonidine (Catapres) 0.1 mg PO Q4H PRN PRN Reason: SBP >160 ____ Dextrose/Water (Dextrose 50%) 25 gm SLOW IVP PRN PRN PRN Reason: Hypoglycemia Enoxaparin Sodium (Lovenox) 40 mg SC 0900 [facility] Last Admin: 08/25/18 09:27 Dose: 40 mg Famotidine (Pepcid) 20 mg PO 2100 [facility] Last Admin: 08/25/18 09:34 Dose: 20 mg Furosemide (Lasix) 40 mg SLOW IVP DAILY [facility] Stop: 08/25/18 23:59 Last Admin: 08/25/18 09:30 Dose: 40 mg Furosemide (Lasix) 40 mg PO DAILY [facility] Last Admin: 08/25/18 09:45 Dose: Not Given Glucagon (Glucagon) 1 mg IM PRN PRN PRN Reason: Hypoglycemia Guaifenesin (Mucinex) 600 mg PO Q12HR [facility] Last Admin: 08/25/18 09:33 Dose: 600 mg Hydralazine HCl (Apresoline) 10 mg SLOW IVP Q4H PRN PRN Reason: SBP > 180 and HR < 70 Hydralazine HCl (Apresoline) 50 mg PO BID [facility] Last Admin: 08/25/18 09:33 Dose: 50 mg Dextrose/Water (D5w) 1,000 mls @ 0 mls/hr IV .Q0M PRN PRN Reason: Hypoglycemia Vancomycin HCl 1.25 gm/ Sodium (Chloride) 250 mls @ 166.667 mls/hr IVPB Q2D [facility] Last Admin: 08/24/18 20:16 Dose: 250 mls Insulin Glargine 10 units/ (Miscellaneous Medication) 0.1 mls @ 0 mls/hr SC HS RAHUL Insulin Glargine 10 units/ (Miscellaneous Medication) 0.1 mls @ 0 mls/hr SC QAM RAHUL Insulin Human Lispro (Humalog) 0 units SC .MODERATE SLIDING SC PRN PRN Reason: Moderate Correction[facility] Scale Last Admin: 08/24/18 17:17 Dose: 2 units Insulin Human Lispro (Humalog) 0 units SC .BEDTIME SLIDING SC PRN PRN Reason: Bedtime Correctional Scale Levofloxacin (Levaquin) 500 mg PO 0600 [facility] Last Admin: 08/25/18 05:32 Dose: 500 mg Metoprolol Succinate (Toprol Xl) 50 mg PO DAILY [facility] Last Admin: 08/25/18 09:34 Dose: 50 mg Miscellaneous Medication (Pharmacy To Dose) 0 each PO ASDIR [facility] Miscellaneous Medication (Pharmacy To Dose) 0 each IVPB ASDIR [facility] Mometasone Furoate/Formoterol Fumar (Dulera 200 Mcg/5 Mcg Inhaler) 2 puff INH BID-RT [facility] Last Admin: 08/25/18 08:10 Dose: 2 puff Montelukast Sodium (Singulair) 10 mg PO QPM [facility] Last Admin: 08/24/18 20:16 Dose: 10 mg Nitroglycerin (Nitrostat) 0.4 mg SL Q5MIN PRN PRN Reason: Chest Pain Ondansetron HCl (Zofran) 4 mg IVP Q6H PRN PRN Reason: Nausea/Vomiting Potassium Chloride (K-Dur) 20 meq PO BID-WM [facility] Last Admin: 08/25/18 09:34 Dose: 20 meq Prednisone (Prednisone) 20 mg PO QAM-[facility] Last Admin: 08/25/18 09:31 Dose: 20 mg Senna/Docusate Sodium (Senokot S) 2 tab PO BID PRN PRN Reason: Constipation Sodium Chloride (Flush - Normal Saline) 10 ml IVF Q12HR [facility] Last Admin: 08/24/18 20:17 Dose: 10 ml Sodium Chloride (Flush - Normal Saline) 10 ml IVF PRN PRN PRN Reason: Saline Flush
[2018-08-25] MEDS: HumaLOG 300 UNITS/3 ML VIAL SC PRN ×2 (14:01→17:14)
--- NOTE | 2018-08-25 15:11 | PRG ---
DATE OF SERVICE: 08/25/2018 SERVICE: Pulmonary Medicine. INTERVAL HISTORY: The patient is doing absolutely fantastic from a respiratory standpoint. She indicates that she is 80% back to baseline. She denies any current fevers, chills, nausea, or vomiting. Her cough is improved. She is not bringing up any sputum anymore. PHYSICAL EXAMINATION: VITAL SIGNS: Afebrile, pulse 68, blood pressure 123/78, respirations 18, and saturation 93% on 2 L nasal cannula. GENERAL: The patient is awake and alert, in no apparent distress. LUNGS: Decreased air entry. There is no prolonged expiratory phase or wheezing appreciated. Dependent crackles are noted. HEART: Normal rate, regular. ABDOMEN: Soft, nontender, and nondistended. Bowel sounds are positive. MUSCULOSKELETAL: No cyanosis or clubbing. There is no pitting in the left lower extremity. The right lower extremity has 1+ pitting. GENITOURINARY: No Beck. NEUROLOGIC: Grossly nonfocal. LABORATORY DATA: WBC 16.8, hemoglobin 11.6, and platelets 225,000. INR 7.1 and trending upward. Creatinine 2.52 and stable. Basic metabolic profile is otherwise unremarkable. Respiratory syncytial antigen, influenza A and B, and blood culture x2 are negative to date. ASSESSMENT: 1. Acute on chronic hypoxic and hypercapnic respiratory failure. 2. Morbid obesity. 3. Obstructive sleep apnea. 4. Acute on chronic diastolic heart failure. 5. Acute kidney injury on chronic kidney disease, 3. DISCUSSION AND PLAN: The patient's volume overload status has improved. With this, chest x-ray has cleared. As such, my suspicion is that in retrospect we are dealing with a primary water issue. I would complete a 7-day course of antibiotics. All respiratory medications can be switched over to oral. From purely respiratory standpoint, she is stable for transition out of the hospital. On discharge, she can resume her home inhalers. If she remains in-house, Pulmonary/Critical Care will continue to follow. Job ID: [id number]
[2018-08-25] MEDS: Montelukast Sodium 10 mg Tablet PO SCH (20:05)
[2018-08-25] MEDS ORDERED: Insulin Glargine 10 UNITS in Pre-Filled Syringe 1 EACH SC SCH (21:00)
[2018-08-26 05:05] LABS: #Lymphocytes 1.3 thou/uL (1.20-3.40); #Neutrophils 11.4 thou/uL (1.40-6.50); %Basophils 0.1 % (0.0-1.0); %Eosinophils 0.3 % (0.0-10.0); %Lymphocytes 9.4 % (21.0-51.0); %Monocytes 7.5 % (0.0-10.0); %Neutrophils 82.8 % (42.0-75.0); Hemoglobin 11.4 g/dL (12.0-16.0); Mean Corpuscular HGB CONC 31.6 g/dL (32.0-36.0); Mean Corpuscular Hemoglobin 25.8 pg (27.0-31.0); Mean Corpuscular Volume 81.7 fL (78.0-98.0); Platelet Count 261 thou/uL (130-400); RBC Distribution Width 18.6 % (11.5-14.5); Red Blood Cell (RBC) Count 4.41 mill/uL (4.20-5.40); White Blood Cell (WBC) Count 13.8 thou/uL (4.8-10.8)
[2018-08-26 05:14] LABS: INR-International Normal Ratio 3.9; Prothrombin Time 37.9 SEC (12.0-14.7)
[2018-08-26 05:26] LABS: Anion Gap 16 mmol/L (10-20); BUN (Urea Nitrogen) 79 mg/dL (9.8-20.1); Calc. Creatinine Clearance 47 mL/min (70-130); Carbon Dioxide 25 mmol/L (22-29); Chloride 101 mmol/L (98-107); Estimated GFR-MDRD 25; Glucose 124 mg/dL (70-105); Potassium 3.8 mmol/L (3.5-5.1); Sodium 138 mmol/L (136-145)
[2018-08-26] MEDS: Mometasone/Formoterol 120 PUFF INHALER INH SCH (05:40)
[2018-08-26 07:17] VITALS: BP 114/61; TEMP 98.4
--- NOTE | 2018-08-26 08:24 | RAD ---
PORTABLE CHEST 1 VIEW: Date: 08/26/18 Time: 0504 hours HISTORY: Respiratory failure. FINDINGS/IMPRESSION: The heart size is enlarged. The lungs are well expanded without lobar consolidation, pneumothoraces, chandan pulmonary edema, or large effusions. POS: [facility]
[2018-08-26] MEDS ORDERED: Insulin Glargine 10 UNITS in Pre-Filled Syringe 1 EACH SC SCH (09:00)
[2018-08-26] MEDS: Allopurinol 300 MG TAB PO SCH (09:05)
[2018-08-26] MEDS: Aspirin 81 mg Enteric Coated Tablet PO SCH (09:06)
[2018-08-26] MEDS: Atorvastatin Calcium 10 MG TAB PO SCH (09:06)
[2018-08-26] MEDS: Amlodipine 10 MG TAB PO SCH (09:06)
[2018-08-26] MEDS: Calcium Carbonate + Vit D 1 TAB PO SCH (09:06)
[2018-08-26] MEDS: predniSONE 20 MG TAB PO SCH (09:07)
[2018-08-26] MEDS: Enoxaparin Sodium 40 MG/0.4 ML SYRINGE SC SCH (09:07)
[2018-08-26] MEDS: Furosemide 40 MG TAB PO SCH (09:07)
[2018-08-26] MEDS: Potassium Chloride 20 MEQ TAB PO SCH (09:07)
[2018-08-26] MEDS: guaiFENesin ER 600 MG TAB PO SCH (09:07)
[2018-08-26] MEDS: hydrALAZINE 25 MG TAB PO SCH (09:07)
--- NOTE | 2018-08-26 22:32 | DIS ---
DATE OF ADMISSION: 08/23/2018 DATE OF DISCHARGE: 08/26/2018 DISCHARGE DISPOSITION: Home. PRIMARY CARE PHYSICIAN: Dr. Gabrielle Abarca. DISCHARGE DIAGNOSES: 1. Acute on chronic hypoxic respiratory failure. 2. Acute on chronic diastolic congestive heart failure exacerbation. 3. Acute kidney injury superimposed on stage 3 chronic kidney disease. 4. Chronic obstructive pulmonary disease exacerbation. 5. Suppressed therapeutic INR, resolved. 6. Chronic obstructive pulmonary disease. 7. Chronic anticoagulation for history of deep venous thrombosis. 8. Diabetes mellitus type 2. 9. Dyslipidemia. 10. Hypertension. 11. Chronic microcytic anemia. 12. Morbid obesity. 13. Obstructive sleep apnea on CPAP at home with noncompliance. 14. Pulmonary arterial hypertension. IN-HOUSE CONSULTATION: Pulmonary Medicine, Dr. Randhawa and Dr. Shrestha. PROCEDURES DONE IN HOSPITAL: Multiple chest x-rays. HISTORY OF PRESENTING ILLNESS: Ms. Rodriguez is a 58-year-old female with known history of severe morbid obesity with sleep apnea, COPD, and chronic diastolic congestive heart failure, who is on home oxygen and is noncompliant with her home CPAP; presented to the emergency room with complaints of shortness of breath and cough. She was found to be in severe hypoxic respiratory distress with oxygen saturation of 75% on 3 L upon presentation. There was some concern off right lower lobe pneumonia. She was started on BiPAP and was admitted to [facility] for acute hypoxic respiratory failure, which was thought secondary to acute CHF exacerbation. Her BNP was elevated to 674. She was also found to have some wheezing, so she was started on IV steroids and nebulizers with possible COPD exacerbation as well. She was started on diuretics. Please see admission history and physical for further details. HOSPITAL COURSE: Ms. Rodriguez had slow improvement with the above intervention. She was eventually weaned off the BiPAP and was continued on nasal cannula during the day. She was provided with CPAP and BiPAP at night while in the hospital and had a fairly good result. Extensive education was once again provided to her with regard to pulmonary hypertension and sleep apnea and the use of CPAP. She is more than willing to use a CPAP at home now. At the day of discharge, she is back to her baseline and her oxygen saturation is 93% on 3 L nasal cannula, which is her baseline home oxygen levels. She has been cleared for discharge by Pulmonary Medicine as well. She was seen and examined prior to discharge. PHYSICAL EXAMINATION: VITAL SIGNS: This morning, temperature 98.4, pulse of 70, respirations 15, saturating 93% on 3 L nasal cannula, and blood pressure 114/61. GENERAL: No acute distress. She is sitting up in chair and is awake, alert, and oriented x3. CHEST: Clear to auscultation actually without any wheezing or rhonchi. HEART: Rate and rhythm are regular. EXTREMITIES: Free of any cyanosis, clubbing, or edema. LABORATORY DATA: The patient had elevation of INR while in the hospital likely due to antibiotic use. On the day of admission; her INR was 2.7, which ellis up to 7.1. She received one dose of vitamin K with INR on discharge at 3.9. She [facility] with Ms. Heena Mcdonald. She will follow up there day after tomorrow on 08/28/2018. She is instructed to hold her Coumadin till then and restart after instructions from Ms. Heena Mcdonald. The patient verbalized understanding with this regard. She is instructed to follow up with Pulmonary Medicine as well as with the primary care physician. Total time spent in the discharge 32 minutes. DISCHARGE MEDICATIONS: As follows; New medications; 1. Nebulizer q.4 hours p.r.n. 2. Levofloxacin 500 mg daily for 5 more days. 3. Mucinex 600 mg p.o. b.i.d. p.r.n. 4. Medrol Dosepak and Tessalon p.r.n. Resumed home medications as follows; 1. Hydralazine 50 b.i.d. 2. Coumadin, only after she has been seen by [facility] and as per their instruction. 3. Potassium chloride 20 mEq b.i.d. 4. Montelukast 10 mg daily. 5. Metoprolol succinate 50 mg daily. 6. Lasix 40 mg daily. 7. Advair Diskus 250/50 b.i.d. 8. Lipitor 10 mg daily. 9. Aspirin 81 mg daily. 10. Amlodipine 10 mg daily. 11. Allopurinol 300 mg daily. Her Toprol-XL dose has been reduced from 100 mg b.i.d. to 50 mg daily as her blood pressure is in the systolic one teens range and she had some evidence of bradycardia with her heart rate in the 50s. Job ID: [id number]
== END 2018-08-26 11:07 | disposition home or self-care (01) | DRG 189 ==
LOC: ERS 03:15 → IMCU/EMU 04:45
PROVIDERS: ADMIT Internal Medicine; ATTEND Internal Medicine
DX: J96.20 Acute and chronic respiratory failure, unspecified whether with hypoxia or hypercapnia (principal); I50.33 Acute on chronic diastolic (congestive) heart failure; N17.9 Acute kidney failure, unspecified; J44.1 Chronic obstructive pulmonary disease with (acute) exacerbation; I13.0 Hypertensive heart and chronic kidney disease with heart failure and stage 1 through stage 4 chronic kidney disease, or unspecified chronic kidney disease; Z68.41 Body mass index [BMI] 40.0-44.9, adult; Z79.01 Long term (current) use of anticoagulants; E78.5 Hyperlipidemia, unspecified; E11.22 Type 2 diabetes mellitus with diabetic chronic kidney disease; E11.65 Type 2 diabetes mellitus with hyperglycemia; D63.1 Anemia in chronic kidney disease; E66.01 Morbid (severe) obesity due to excess calories; G47.33 Obstructive sleep apnea (adult) (pediatric); I27.21 Secondary pulmonary arterial hypertension; N18.3 Chronic kidney disease, stage 3 (moderate); Z99.81 Dependence on supplemental oxygen
CPT/HCPCS: 36415; 36416; 71045; 80048; 80053; 80202; 82330; 82550; 82803; 83605; 83880; 84484; 85025; 85610; 87040; 87804; 87807; 93005; 94640; 94660; 96365; 96366; 96367; 96375; J1650; J1940; J2060; J2543; J2920; J2930; J3370; J3430; J7050; J7506; J7620

== ENCOUNTER 2018-12-24 00:48 | Inpatient (IN) | payer MEDICARE, MEDICAID ==
[2018-12-24] MEDS ORDERED: Succinylcholine Chloride 20 MG/ML 10 ml SYRINGE FS ONE (00:50)
[2018-12-24] MEDS ORDERED: Ketamine 50 MG/ML (10ML VIAL) ONE (00:50)
[2018-12-24] MEDS ORDERED: Sodium Bicarb 50 MEQ/50 ML Abboject 8.4% SYRINGE ONE (01:00)
[2018-12-24 01:15] LABS: Base Excess-Venous 11.5 mmol/L (-2.0 to 3.0); Bicarbonate (HCO3v) 44.1 mmol/L (22.0-28.0); CO2 Tension (PvCO2) 123.8 mmHg (40.0-50.0); Calcium, Ionized 0.98 mmol/L (See Comments:); Chloride 101 mmol/L (98-107); Glucose 403 mg/dL (70-105); Hemoglobin - Calc 11.2 g/dL (12.0-16.0); Lactate 9.31 mmol/L (0.50-2.20); O2 Tension (PvO2) 43.1 mmHg (35.0-45.0); Potassium 2.9 mmol/L (3.5-5.1); Sodium 154 mmol/L (138-145); T. Carbon Dioxide 47.9 mmol/L (22.0-28.0); vO2 Saturation-calc 59.9 % (60.0-85.0)
[2018-12-24] MEDS ORDERED: Fentanyl 100 MCG/2 ML VIAL ONE (01:23)
[2018-12-24 01:34] LABS: Actual Bicarbonate (HCO3a) 21.9 mEq/L (22-28); Analyzer IN Cardio ER; Calcium, Ionized 1.09 mmol/L (1.12-1.30); Carboxyhemoglobin (COHb) 0.5 gm% (0.0-3.0); Hemoglobin (Hb) 10.9 g/dL (12.0-16.0); O2 Tension (PaO2) 71.7 mmHg (80.0-100.0)
[2018-12-24 01:35] LABS: pH, Arterial 7.17 (7.35-7.45)
[2018-12-24 01:36] LABS: CO2 Tension 61.3 mmHg (35.0-45.0); Puncture Site A LINE
[2018-12-24 01:37] LABS: ALV-art Gradient 564.675 (0-20)
[2018-12-24 01:39] LABS: ALT (SGPT) 59 U/L (8-55); AST (SGOT) 69 U/L (5-34); Albumin 3.1 g/dL (3.5-5.0); Alkaline Phosphatase 81 U/L (40-150); Anion Gap 21 mmol/L (10-20); BUN (Urea Nitrogen) 57 mg/dL (9.8-20.1); Bilirubin, Total 0.4 mg/dL (0.2-1.2); Calc. Creatinine Clearance 0 mL/min (70-130); Calcium 8.6 mg/dL (7.8-10.44); Carbon Dioxide 25 mmol/L (22-29); Chloride 101 mmol/L (98-107); Estimated GFR-MDRD 27; Glucose 429 mg/dL (70-105); Potassium 3.2 mmol/L (3.5-5.1); Protein, Total 6.1 g/dL (6.0-8.3); Sodium 144 mmol/L (136-145)
[2018-12-24 01:40] LABS: Band 5 % (5-11); Eosinophils 1 % (0-10); Hemoglobin 9.9 g/dL (12.0-16.0); Lymphocytes 15 % (21-51); MDiff Complete? YES; Mean Corpuscular HGB CONC 28.6 g/dL (32.0-36.0); Mean Corpuscular Hemoglobin 24.1 pg (27.0-31.0); Mean Corpuscular Volume 84.3 fL (78.0-98.0); Mean Platelet Volume 9.8 fL (7.4-10.4); Monocytes 10 % (0-10); Neutrophil 69 % (42-75); Nucleated RBC 3 % (0); Platelet Count 368 thou/uL (130-400); Platelet Morphology Comment Appears Adequate; RBC Distribution Width 19.1 % (11.5-14.5); White Blood Cell (WBC) Count 21.8 thou/uL (4.8-10.8)
[2018-12-24] MEDS ORDERED: Ketamine 500 MG in Sodium Chloride 0.9% 490 ML IVPB PRN (01:45)
[2018-12-24] MEDS ORDERED: cefTRIAXone\\ROCEPHIN 1 GM in Sodium Chloride 0.9% 100 ML IVPB SCH ×2 (02:15→10:00)
[2018-12-24] MEDS ORDERED: Ventilator Sedation Protocol 1 EACH FS SCH (02:15)
[2018-12-24] MEDS ORDERED: Ondansetron PF 4 MG/2 ML Vial IVP PRN (02:19)
[2018-12-24] MEDS ORDERED: Acetaminophen 650 MG Suppository PR PRN (02:19)
[2018-12-24] MEDS ORDERED: Ondansetron ODT 4 MG TAB PO PRN (02:19)
[2018-12-24 02:23] LABS: INR-International Normal Ratio 1.8; Prothrombin Time 21.4 SEC (12.0-14.7)
[2018-12-24] MEDS ORDERED: DISCONTINUE PREVIOUS NARCOTIC PAIN MEDICATIONS AND BENZODIAZEPINES FS SCH (02:37)
[2018-12-24] MEDS ORDERED: Fentanyl BOLUS 250 ML IVPB PRN (02:37)
[2018-12-24] MEDS ORDERED: Propofol BOLUS 1,000 MG/100 ML VIAL IV PRN (02:37)
[2018-12-24] MEDS ORDERED: Morphine 2 MG/ML SYRINGE SLOW IVP PRN (02:37)
[2018-12-24] MEDS ORDERED: Dextrose 50% Abboject 50 ML SYRINGE SLOW IVP PRN (02:44)
[2018-12-24] MEDS ORDERED: Dextrose 5% in Water 1,000 ML IV PRN (02:44)
[2018-12-24] MEDS ORDERED: Piperacillin/Tazobactam 4.5 GM VIAL ONE (02:48)
[2018-12-24] MEDS ORDERED: Sodium Chloride 0.9% 1,000 ML IV SCH (03:48)
[2018-12-24] MEDS: Propofol 1,000 MG/100 ML VIAL IV PRN ×3 (04:34→21:43)
[2018-12-24 04:37] LABS: Actual Bicarbonate (HCO3a) 21.8 mEq/L (22-28); Base Excess (BEa) -5.3 mEq/L (-2.0 to +3.0); CO2 Tension 49.4 mmHg (35.0-45.0); Carboxyhemoglobin (COHb) 0.9 gm% (0.0-3.0); Hemoglobin (Hb) 10.6 g/dL (12.0-16.0); Potassium - ABG Lab 3.51 mmol/L (3.70-5.30); pH, Arterial 7.26 (7.35-7.45)
[2018-12-24 04:41] LABS: O2 Tension (PaO2) 44.4 mmHg (80.0-100.0); Puncture Site LINE
[2018-12-24 04:52] LABS: INR-International Normal Ratio 1.7; PTT 31.7 SEC (22.9-36.1); Prothrombin Time 19.7 SEC (12.0-14.7)
[2018-12-24 04:56] LABS: Anion Gap 14 mmol/L (10-20); BUN (Urea Nitrogen) 59 mg/dL (9.8-20.1); Calc. Creatinine Clearance 0 mL/min (70-130); Calcium 8.3 mg/dL (7.8-10.44); Carbon Dioxide 24 mmol/L (22-29); Chloride 104 mmol/L (98-107); Estimated GFR-MDRD 25; Glucose 376 mg/dL (70-105); Potassium 3.4 mmol/L (3.5-5.1); Sodium 139 mmol/L (136-145)
[2018-12-24 05:01] LABS: Lactic Acid 2.2 mmol/L (0.5-2.2); Troponin I 0.042 ng/mL (< 0.028)
[2018-12-24] MEDS: methylPREDNISolone Sod Succ 40 MG VIAL IVP SCH ×4 (05:16→23:31)
[2018-12-24 05:19] LABS: Band 5 % (5-11); Hemoglobin 9.8 g/dL (12.0-16.0); Lymphocytes 3 % (21-51); MDiff Complete? YES; Mean Corpuscular Hemoglobin 23.8 pg (27.0-31.0); Mean Corpuscular Volume 82.3 fL (78.0-98.0); Monocytes 3 % (0-10); Neutrophil 89 % (42-75); Platelet Count 369 thou/uL (130-400); Platelet Morphology Comment Appears Adequate; RBC Distribution Width 19.1 % (11.5-14.5); Red Blood Cell (RBC) Count 4.12 mill/uL (4.20-5.40)
[2018-12-24] MEDS ORDERED: Potassium Chloride 20 MEQ in Premix Bag 1 BAG IVPB SCH (05:30)
[2018-12-24] MEDS ORDERED: Heparin 10,000 UNITS/ 10 ML VIAL SLOW IVP SCH (05:45)
[2018-12-24] MEDS: Heparin 25,000 units/D5W 500 ML IV SCH ×2 (06:10→19:53)
[2018-12-24] MEDS ORDERED: Furosemide 40 MG/4 ML VIAL SLOW IVP SCH ×2 (06:45→12:15)
[2018-12-24] MEDS: HumaLOG 300 UNITS/3 ML VIAL SC PRN ×3 (06:48→18:15)
[2018-12-24 07:52] LABS: Troponin I 0.074 ng/mL (< 0.028)
--- NOTE | 2018-12-24 07:57 | HP ---
PRIMARY CARE DOCTOR: Dr. Gabrielle Abarca. CODE STATUS: Full code. TIME OF EVALUATION: 2:00 a.m. CHIEF COMPLAINT: Acute respiratory distress. HISTORY OF PRESENT ILLNESS: This is a 58-year-old female patient with known past medical history of COPD with multiple admissions in the past due to COPD exacerbation and respiratory failure, who came to the hospital after having acute severe respiratory distress and thereupon respiratory failure. The patient also went into cardiac arrest, received resuscitation with ROSC, the patient has been intubated, received Solu-Medrol, DuoNebs, and antibiotics, has been stable so far. Sedated, being placed in ICU, Dr. Randhawa has been consulted, we will follow recommendation from Pulmonary. Symptoms are severe, with no clear triggers, no alleviating factors. On presentation, the patient had severe bilateral rales. REVIEW OF SYSTEMS: Unable to obtain. The patient is intubated and sedated during my examination. KNOWN ALLERGIES: No known drug allergies. REPORTED MEDICATIONS: Unable to obtain. Reportedly, the patient was on Coumadin due to previous DVTs. PAST MEDICAL HISTORY: History of COPD. FAMILY HISTORY: Unable to obtain due to the patient sedated and intubated. SOCIAL HISTORY: Unable to obtain due to the patient intubated and sedated. PAST SURGICAL HISTORY: Unable to obtain due to the patient intubated and sedated. PHYSICAL EXAMINATION: VITAL SIGNS: On presentation, after ROSC, vital signs have remained stable. GENERAL APPEARANCE: The patient is sedated, intubated. HEENT: Eyes, normal conjunctivae. Moist oral mucosa. Anicteric. NECK: No JVD. RESPIRATORY: Bilateral air entry. No rales. No wheezing. Symmetric expansion. On presentation, the patient did have rales, no wheezing, might probably this had resolved after ventilation. CARDIOVASCULAR: Normal rate, regular rhythm. No murmurs. No gallop. Mild bilateral leg edema. ABDOMEN: Soft, mildly distended. Normal bowel sounds. MUSCULOSKELETAL: Baseline range of motion and strength. SKIN: Warm, intact. No pallor. No rash. No redness. Peripheral pulses are present. Capillary refill seems to be intact. NEURO: No evidence of any new focal weakness. Unable to fully assess as the patient is intubated and sedated. PSYCH: Unable to explore. DIAGNOSTIC DATA: EKG was reviewed. The patient has wide QRS rhythm with fusion complex at the rate of 57, QRS duration 130, QT corrected 414. Chest x-ray was reviewed and the patient has severe cardiomegaly that had been present in previous x-rays, also there is some haziness on the right side and probably retrocardiac, difficult visualization of the left costophrenic angle. ET tube seems to be in right position. Image has a very poor quality. LABORATORY DATA: Labs were reviewed. The patient has white count 21.8, hemoglobin 9.9, hematocrit 34.6, platelet count 368,000, bands 5. Coagulation; PT 21.4, INR 1.8, and PTT 34. Blood gas was reviewed. The patient has a pH 7.17 with pCO2 of 61.3 and PO2 71.7. This was done on SIMV. Mechanical rate 18, spontaneous rate 11, inspired oxygen 100, tidal volume 500. Chemistry; sodium 144, potassium 3.2, chloride 101, carbon dioxide 35, anion gap 21, BUN 57, creatinine 2.27 with GFR 27, glucose 429, lactic acid 12.3, calcium 8.6. AST and ALT in the range of 60's and 50's. Troponin was negative. Beta-natriuretic peptide 2566. ASSESSMENT AND PLAN: The patient will be placed in the hospital with following medical problems; 1. Acute hypoxic and hypercapnic respiratory failure. The patient has severe respiratory acidosis. The patient has been intubated, admitted to ICU, Dr. Randhawa had been consulted. We will follow recommendations. Likely etiology is underlying congestive heart failure/chronic obstructive pulmonary disease exacerbation. The patient has been started on Solu-Medrol, nebs, antibiotics, we will follow up cultures, we will treat accordingly. There is also haziness in the right perihilar area, but there is a possibility for pneumonia. We will adjust treatment as per the blood culture sensitivities and the patient's clinical progress. 2. Possible severe chronic obstructive pulmonary disease exacerbation. Treatment as above. 3. Possible underlying congestive heart failure exacerbation. The patient has significant cardiomegaly, very elevated proBNP, we will reconcile home medications. We will treat accordingly. 4. Chronic anticoagulation. The patient has a history of previous deep venous thrombosis. We will restart Coumadin, to be dosed by pharmacy. We will check the coagulation panel. 5. Possible sepsis. The patient presented with respiratory failure, with leukocytosis, tachycardia, tachypnea, the patient has been started on antibiotics. Cultures had been sent. Treatment to be managed as explained above. 6. Acute hypoxic and hypercapnic respiratory failure. Treatment as above. 7. Hypokalemia, potassium 3.2, has been replaced, with given underlying kidney failure. 8. Chronic kidney disease. The patient has creatinine of 2.27 and on previous admission in October, it was around the same level. will monitor kidney function, 9. Uncontrolled diabetes. The patient has blood sugar of , hyperglycemia, we will start the patient on sliding scale. We will monitor and treat accordingly. 10. Chronic normocytic anemia, it could be secondary to underlying kidney disease. No need for any acute intervention at this point. 11. Deep venous thrombosis prophylaxis. The patient will continue on Coumadin, dose as per pharmacy. Critical care time of more than 35 minutes spent in bedside assessment, discussion with ER physician, review of records, and stabilization of patient. Job ID: [id number] [id number]
--- NOTE | 2018-12-24 07:58 | CON ---
DATE OF CONSULTATION: HISTORY OF PRESENT ILLNESS: Bam Rodriguez is a morbidly obese, -[place] female, who apparently weighs 261 pounds, 5 feet 7 inches, who presented to the ER with acute respiratory failure. I was called by the ER physician at 0100 hours in the morning that patient ongoing CPR, is intubated, placing a central line and A line, was transferring to the ICU. She is morbidly obese. She has known history of COPD. EMS was called in with respiratory distress. Three neb treatments were given, epi was given, 125 of Solu-Medrol was given and saturations were in the high 80s following intubation and a PEEP of 5, 100%. PO2 was 61. Increase the PEEP to 10 and was transferred to the ICU. At this time, she is intubated on propofol and fentanyl drip. She has been in the hospital most recently on a long list of medications from home including hydralazine 50, guaifenesin 600, Coumadin 5 along with some long-term DVT, potassium, Singulair 10, Toprol-XL 50, DuoNeb, Lasix 40 daily, Advair inhaler, Lipitor 10, aspirin 81, and amlodipine 10, and zyloprim 300. PAST SURGICAL HISTORY: Otherwise included hysterectomy. She has a BiPAP device at home for severe MARTHA. PAST MEDICAL HISTORY: CHF, morbid obesity, CVA, renal failure, and diabetes. ALLERGIES: APPARENTLY NONE. REVIEW OF SYSTEMS: Unobtainable. PHYSICAL EXAMINATION: VITAL SIGNS: Pulse 87, blood pressure 120/96, saturations are about 90-93%, respirations 24. CHEST: Decreased breath sounds. No wheezing. CARDIAC: Normal S1, S2. No gallops. ABDOMEN: Massive. EXTREMITIES: Trace edema. DIAGNOSTIC STUDIES: Chest x-ray shows worsening bilateral pulmonary infiltrates, right greater than left. Massive cardiomegaly. Additional lab shows blood gases on a 10 of PEEP, PO2 was 44, pCO2 being adjusted. LABORATORY DATA: White count 14101, H and H are 9 and 30, platelet count is 369, left shift. Her BNP is markedly elevated, BUN and creatinine are elevated at 57 and 2.27, glucose is 376. Lactic acid was 12.3. BNP was 2566. ASSESSMENT: 1. Respiratory failure. 2. Bilateral bronchopneumonia. 3. Diastolic dysfunction. 4. Severe obstructive sleep apnea. 5. Respiratory failure superimposed on renal failure. 6. Long-term anticoagulation. 7. Hypertension. Medications being adjusted. We will continue steroids and broad spectrum antibiotics, neb treatments and supportive care. I will notify Dr. Redmond who apparently seen her in the past. Long-term prognosis is grave. Discussed with family and they arrived. This is a 45-minute critical time. Job ID: [id number]
[2018-12-24 08:11] LABS: Base Excess (BEa) -3.8 mEq/L (-2.0 to +3.0); Calcium, Ionized 1.11 mmol/L (1.12-1.30); Carboxyhemoglobin (COHb) 0.8 gm% (0.0-3.0); Hemoglobin (Hb) 10.7 g/dL (12.0-16.0); pH, Arterial 7.28 (7.35-7.45)
[2018-12-24 08:17] LABS: O2 Tension (PaO2) 53.4 mmHg (80.0-100.0); Puncture Site LINE
[2018-12-24] MEDS ORDERED: Enoxaparin Sodium 40 MG/0.4 ML SYRINGE SC SCH (09:00)
[2018-12-24] MEDS ORDERED: Vecuronium 10 MG VIAL IVP PRN (09:10)
[2018-12-24] MEDS: Cefepime 1 GM in Sodium Chloride 0.9% 100 ML IVPB SCH ×2 (09:19→19:52)
[2018-12-24] MEDS: Famotidine/PF 20 mg/2ml Vial SLOW IVP SCH (09:20)
[2018-12-24] MEDS ORDERED: Vecuronium 10 MG VIAL ONE (09:27)
--- NOTE | 2018-12-24 09:47 | RAD ---
PORTABLE CHEST 1 VIEW: DATE: 12/24/2018. TIME: 1:36 a.m. HISTORY: COPD, asthma, dyspnea. FINDINGS: There is an endotracheal tube with tip at the level of the clavicular heads. A nasogastric tube can be traced into the stomach. The heart is enlarged. There are alveolar opacities in the perihilar re gions in the left lung base. No pneumothoraces are seen. POS: OFF
--- NOTE | 2018-12-24 09:49 | RAD ---
PORTABLE CHEST 1 VIEW: DATE: 12/24/2018. TIME: 5:21 a.m. HISTORY: Respiratory failure. FINDINGS: Comparison is made with earlier exam of 1:36 a.m. Endotracheal and nasogastric tubes remain in place. The heart is enlarged. Opacities in the right l willem have worsened. Left lung opacities are again seen. A right pleural effusion has developed in th e interim. No pneumothoraces are seen. POS: OFF
[2018-12-24 10:25] LABS: PTT Greater than 250.0 SEC (22.9-36.1)
[2018-12-24] MEDS ORDERED: VANCOMYCIN IVPB PRN (11:11)
[2018-12-24] MEDS ORDERED: Vancomycin HCl 1.75 GM in Sodium Chloride 0.9% 500 ML IVPB SCH (12:00)
[2018-12-24] MEDS ORDERED: Furosemide 40 MG/4 ML VIAL ONE (12:02)
--- NOTE | 2018-12-24 16:03 | PDOC.EVN ---
Event Note - Event Note Event Note: Pt seen and examined. remains intubated and sedated. Care discussed w RN at bedside. No family at bedside Cont supportive care,nebs, IV steroids,Lasix. Poor prognosis due to non compliance Consult palliative care.Multiple admissions for same Poor Urine output.hooper in place, monitor. additional lasix dose ordered empiric ABx for BronchoPNA Heparin drip untill INR therapeutic.Monitor.On Coumadin for h/o DVT. INR low for now am labs
[2018-12-24] MEDS ORDERED: Warfarin Sodium 5 MG TAB PO SCH (17:00)
[2018-12-24] MEDS: fentaNYL Citrate/PF 2,000 MCG in Sodium Chloride 0.9% 60 ML IV SCH (17:06)
[2018-12-24 20:21] LABS: PTT 214.8 SEC (22.9-36.1)
[2018-12-25] MEDS: HumaLOG 300 UNITS/3 ML VIAL SC PRN ×4 (00:48→17:58)
[2018-12-25] MEDS ORDERED: Azithromycin 500 MG in Sodium Chloride 0.9% 250 ML 250 ML IVPB SCH (04:00)
[2018-12-25 04:46] LABS: #Lymphocytes 0.7 thou/uL (1.20-3.40); #Monocytes 0.4 thou/uL (0.11-0.59); #Neutrophils 14.1 thou/uL (1.40-6.50); %Basophils 0.2 % (0.0-1.0); %Eosinophils 0.2 % (0.0-10.0); %Lymphocytes 4.8 % (21.0-51.0); %Monocytes 2.7 % (0.0-10.0); %Neutrophils 92.2 % (42.0-75.0); Hemoglobin 8.6 g/dL (12.0-16.0); Mean Corpuscular HGB CONC 30.9 g/dL (32.0-36.0); Mean Corpuscular Hemoglobin 24.4 pg (27.0-31.0); Mean Corpuscular Volume 78.8 fL (78.0-98.0); Mean Platelet Volume 11.1 fL (7.4-10.4); Platelet Count 217 thou/uL (130-400); RBC Distribution Width 18.8 % (11.5-14.5); Red Blood Cell (RBC) Count 3.54 mill/uL (4.20-5.40); White Blood Cell (WBC) Count 15.2 thou/uL (4.8-10.8)
[2018-12-25 04:50] LABS: PTT 140.9 SEC (22.9-36.1)
[2018-12-25 05:04] LABS: Anion Gap 18 mmol/L (10-20); BUN (Urea Nitrogen) 76 mg/dL (9.8-20.1); Calc. Creatinine Clearance 33 mL/min (70-130); Calcium 9.1 mg/dL (7.8-10.44); Carbon Dioxide 19 mmol/L (22-29); Chloride 106 mmol/L (98-107); Estimated GFR-MDRD 16; Glucose 192 mg/dL (70-105); Potassium 3.6 mmol/L (3.5-5.1); Sodium 139 mmol/L (136-145)
[2018-12-25] MEDS: Propofol 1,000 MG/100 ML VIAL IV PRN ×3 (05:30→17:43)
[2018-12-25] MEDS: methylPREDNISolone Sod Succ 40 MG VIAL IVP SCH ×3 (05:47→17:43)
[2018-12-25 07:24] LABS: Actual Bicarbonate (HCO3a) 17.8 mEq/L (22-28); Base Excess (BEa) -4.8 mEq/L (-2.0 to +3.0); Calcium, Ionized 1.16 mmol/L (1.12-1.30); Carboxyhemoglobin (COHb) 0.9 gm% (0.0-3.0); Hemoglobin (Hb) 9.4 g/dL (12.0-16.0); O2 Tension (PaO2) 71.8 mmHg (80.0-100.0); Potassium - ABG Lab 3.56 mmol/L (3.70-5.30); pH, Arterial 7.47 (7.35-7.45)
[2018-12-25 07:37] LABS: ALV-art Gradient 396.175 (0-20); CO2 Tension 24.9 mmHg (35.0-45.0); Puncture Site ALINE
--- NOTE | 2018-12-25 07:55 | RAD ---
Chest AP view INDICATION: Intubation COMPARISON: December 24, 2018 at 5:21 AM FINDINGS: Tubes and Lines: Stable. Lungs:There is a persistent central edema pattern.. Cardiac silhouette pulmonary vasculature:Cardiomegaly and pulmonary vascular congestion persists. Pleural spaces: Bilateral pleural effusions persist. Upper abdomen:No abnormality seen. Osseous structures: No acute abnormality. IMPRESSION: Stable examination. No pneumothorax.
[2018-12-25] MEDS: fentaNYL Citrate/PF 2,000 MCG in Sodium Chloride 0.9% 60 ML IV SCH ×2 (08:02→22:35)
[2018-12-25 08:06] LABS: INR-International Normal Ratio 1.8; Prothrombin Time 21.3 SEC (12.0-14.7)
--- NOTE | 2018-12-25 08:33 | PRG ---
DATE OF SERVICE: 12/25/2018 TIME SPENT: A 35 minutes of critical care time. SUBJECTIVE: The patient remains intubated on mechanical ventilation. Fortunately, she is now waking up and able to follow commands. OBJECTIVE: VITAL SIGNS: On exam, temperature is 99.0, pulse 74, blood pressure 104/68. A 24-hour intake 1752, output 491. HEENT: Unremarkable. NECK: No JVD. LUNGS: Fairly clear anteriorly. CARDIAC: S1 and S2, regular. ABDOMEN: Obese, soft, and nontender. EXTREMITIES: No clubbing, cyanosis, or edema. LABORATORY DATA: Sodium 139, potassium 3.6, chloride 106, CO2 of 19, BUN 76, creatinine 3.5, and glucose 192. ABG; pH of 7.47, pCO2 of 24, pO2 of 71 that was on bilevel high pressure 32, low pressure 13, rate 24, and FiO2 of 70%. PTT was 46. INR is pending. White blood cell count 15.2, hematocrit 27.9, and platelet count 217. ASSESSMENT: 1. Status post cardiopulmonary arrest. 2. Acute respiratory failure requiring mechanical ventilation. 3. Pneumonia. 4. Diastolic cardiac dysfunction. 5. Acute renal dysfunction. 6. Obstructive sleep apnea. 7. Acute renal failure. 8. Long-term anticoagulation with previous history of deep venous thrombosis. PLAN: 1. I am changing her over to SIMV ventilation. 2. Discontinue arterial line. 3. Initiate tube feeds. 4. I have adjusted ventilator settings. 5. Stop the heparin drip. 6. Check PT and INR, Coumadin dose. 7. Continue steroids, antibiotics, and nebulization treatments. Job ID: [id number]
[2018-12-25] MEDS ORDERED: Vecuronium 10 MG VIAL ONE (08:51)
[2018-12-25] MEDS ORDERED: Vancomycin HCl 1 GM in Premix Bag 1 BAG IVPB SCH (09:00)
[2018-12-25] MEDS: Cefepime 1 GM in Sodium Chloride 0.9% 100 ML IVPB SCH (09:40)
[2018-12-25] MEDS: Famotidine/PF 20 mg/2ml Vial SLOW IVP SCH (09:41)
[2018-12-25] MEDS ORDERED: Pancrelipase DR 12000 1 CAP PER TUBE PRN (09:51)
[2018-12-25] MEDS ORDERED: Sodium Bicarbonate Tab 325 MG TAB PER TUBE PRN (09:51)
[2018-12-25] MEDS ORDERED: Furosemide 40 MG/4 ML VIAL SLOW IVP SCH (10:00)
[2018-12-25 11:26] LABS: Vancomycin, Random 21.6 ug/mL (See Comment)
[2018-12-25] MEDS ORDERED: Vancomycin HCl 1.75 GM in Sodium Chloride 0.9% 500 ML IVPB SCH (12:00)
--- NOTE | 2018-12-25 12:15 | CON ---
DATE OF CONSULTATION: REASON FOR CONSULTATION: Elevated creatinine and congestive heart failure. HISTORY OF PRESENT ILLNESS: This is a very pleasant 58-year-old female with morbid obesity and respiratory distress. The patient has generalized edema. Her baseline creatinine was anywhere ranging from 1.5 to 2, has increased to 3.5. The patient can give no further history as she is intubated. PAST MEDICAL HISTORY: Includes hysterectomy, COPD, CKD, multiple episodes of acute kidney failure, CVA, diabetes. ALLERGIES: NONE. HOME MEDICATIONS: Reviewed. REVIEW OF SYSTEM: Unobtainable. PHYSICAL EXAMINATION: GENERAL: The patient is resting. VITAL SIGNS: Afebrile. Pulse 81, breathing 16, blood pressure 101/67. GENERAL APPEARANCE AND MENTAL STATUS: Fair. HEAD/NECK: Normocephalic. Atraumatic. EYES: EOMI. No deformity. EARS: Clear. No ulcers. NOSE: Intact. No lesions. MOUTH: Clear. No discharge. THROAT: Clear. No exudate. LUNGS: Clear. No crackles. CARDIAC: S1, S2. No rub. ABDOMEN: Benign. Bowel sounds positive. GENITALIA/RECTUM: Beck absent. BACK/EXTREMITIES: Edema 0+. NEUROLOGICAL: The patient is resting. SKIN: LYMPHATICS: LABORATORY DATA: Lab show potassium 3.4. ASSESSMENT AND PLAN: 1. Acute kidney injury with chronic kidney disease, most likely because of acute tubular necrosis because of sepsis and multiple causes. She has respiratory failure and multiorgan failure. Overall, prognosis is poor. Continue Lasix 40 twice a day. 2. Anemia, stable. Medication based on GFR appropriate. Overall prognosis is poor. Job ID: [id number]
--- NOTE | 2018-12-25 15:55 | PDOC.PN ---
- Subjective Encounter Start Date: 12/25/18 Encounter Start Time: 15:53 Subjective: remains intubated and sedated.no chnages. poor urine output -: care discussed w Daughter, 2 sisters and brother at bedside - Objective Resuscitation Status - Order Detail: 12/24/18 02:19 Resuscitation Status Routine Resuscitation Status: FULL: Full Resuscitation MAR Reviewed: Yes Vital Signs & Weight: Vital Signs (12 hours) Pulse Resp BP Pulse Ox 12/25/18 14:26 74 85/45 L 12/25/18 14:25 74 20 93 L 12/25/18 12:00 20 12/25/18 10:35 81 99/65 12/25/18 10:33 80 20 95 12/25/18 10:00 20 12/25/18 08:00 20 12/25/18 07:07 82 88/51 L 12/25/18 07:06 78 24 H 94 L 12/25/18 06:00 24 H 12/25/18 04:00 24 H Weight Admit Weight 261 lb Weight 261 lb 14.546 oz Most Recent Monitor Data Heart Rate from ECG 74 NIBP 103/53 NIBP BP-Mean 69 Respiration from ECG 20 SpO2 96 I&O: 12/24/18 12/25/18 12/26/18 06:59 06:59 06:59 Intake Total 1752 Output Total 50 491 180 Balance -50 1261 -180 Result Diagrams: 12/25/18 04:30 12/25/18 04:30 Additional Labs: Accuchecks 12/25/18 12/24/18 12/24/18 00:49 18:15 09:53 POC Glucose 185 H 206 H 318 H 12/24/18 06:41 POC Glucose 358 H Microbiology 08/23/18 04:02 Nasopharyngeal wash Respiratory Syncytial Virus Ag - Final 08/23/18 03:50 Nasal swab Influenza Types A,B Direct EIA - Final 08/23/18 03:30 Venous blood - Right Arm Blood Culture - Preliminary NO GROWTH AT 48 HOURS 08/23/18 03:30 Venous blood - Left Arm Blood Culture - Preliminary NO GROWTH AT 48 HOURS 12/24/18 01:59 Venous blood - Right Hand Blood Culture - Preliminary Specimen has been received and culture in progress. No Growth to date. 12/24/18 01:59 Venous blood - Left Arm Blood Culture - Preliminary Specimen has been received and culture in progress. No Growth to date. Laboratory Tests 05/16/18 08/23/18 08/23/18 23:40 03:30 07:30 INR ABG pH ABG pCO2 Potassium Anion Gap Creatinine 2.28 H Lactic Acid Troponin I B-Natriuretic Peptide 1684.4 H 674.6 H 08/24/18 08/26/18 08/26/18 04:21 04:45 04:45 INR ABG pH ABG pCO2 Potassium Anion Gap Creatinine 2.52 H 2.44 H Lactic Acid Troponin I B-Natriuretic Peptide 1121.7 H 09/29/18 10/07/18 10/29/18 10:40 12:05 16:34 INR ABG pH ABG pCO2 Potassium Anion Gap Creatinine 2.15 H 2.44 H 2.31 H Lactic Acid Troponin I B-Natriuretic Peptide 12/24/18 12/24/18 12/24/18 01:06 01:06 01:06 INR ABG pH ABG pCO2 Potassium Anion Gap Creatinine Lactic Acid 12.3 H* Troponin I Less than 0.010 B-Natriuretic Peptide 2566.4 H 12/24/18 12/24/18 12/24/18 01:06 01:06 01:26 INR 1.8 ABG pH 7.17 L* ABG pCO2 61.3 H* Potassium 3.2 L Anion Gap 21 H Creatinine 2.27 H Lactic Acid Troponin I B-Natriuretic Peptide 12/24/18 12/24/18 12/24/18 04:05 04:05 04:05 INR 1.7 ABG pH ABG pCO2 Potassium 3.4 L Anion Gap 14 Creatinine 2.45 H Lactic Acid Troponin I 0.042 H B-Natriuretic Peptide 12/24/18 12/24/18 12/24/18 04:05 04:32 07:20 INR ABG pH 7.26 L ABG pCO2 49.4 H Potassium Anion Gap Creatinine Lactic Acid 2.2 Troponin I 0.074 H B-Natriuretic Peptide 12/24/18 12/25/18 12/25/18 08:10 04:30 06:30 INR 1.8 ABG pH 7.28 L ABG pCO2 50.0 H Potassium Anion Gap Creatinine 3.54 H Lactic Acid Troponin I B-Natriuretic Peptide Phys Exam - Physical Examination Constitutional: NAD intubated HEENT: moist MMs, sclera anicteric, oral pharynx no lesions ETT Neck: no nodes, no JVD, supple, full ROM Respiratory: no wheezing, no rales, no rhonchi, clear to auscultation bilateral Cardiovascular: RRR, no significant murmur Gastrointestinal: soft, non-tender, no distention, positive bowel sounds Musculoskeletal: no edema, pulses present sedated Deviation from normal: sedated Skin: no rash Dx/Plan (1) Acute respiratory failure with hypoxia and hypercapnia Code(s): J96.01 - ACUTE RESPIRATORY FAILURE WITH HYPOXIA; J96.02 - ACUTE RESPIRATORY FAILURE WITH HYPERCAPNIA Status: Acute Comment: Multifactorial.cont Vent support per PCCM (2) Acute on chronic stage C diastolic heart failure Code(s): I50.33 - ACUTE ON CHRONIC DIASTOLIC (CONGESTIVE) HEART FAILURE Status : Acute Comment: on diuresis. continue.monitor I/Os (3) Acute kidney injury superimposed on CKD Code(s): N17.9 - ACUTE KIDNEY FAILURE, UNSPECIFIED; N18.9 - CHRONIC KIDNEY DISEASE, UNSPECIFIED Status: Acute (4) Bronchopneumonia Code(s): J18.0 - BRONCHOPNEUMONIA, UNSPECIFIED ORGANISM Status: Acute (5) Cardiopulmonary arrest with successful resuscitation Code(s): I46.9 - CARDIAC ARREST, CAUSE UNSPECIFIED Status: Acute (6) CKD (chronic kidney disease) Code(s): N18.9 - CHRONIC KIDNEY DISEASE, UNSPECIFIED Status: Chronic Qualifiers: Chronic kidney disease stage: stage 3 (moderate) Qualified Code(s): N18.3 - Chronic kidney disease, stage 3 (moderate) (7) COPD (chronic obstructive pulmonary disease) Status: Chronic (8) Chronic anticoagulation Code(s): Z79.01 - HALFWAY (CURRENT) USE OF ANTICOAGULANTS Status: Chronic Comment: on coumadin for H/O DVT.Monitor daily INR (9) HLD (hyperlipidemia) Code(s): E78.5 - HYPERLIPIDEMIA, UNSPECIFIED Status: Chronic (10) Hypertension Code(s): I10 - ESSENTIAL (PRIMARY) HYPERTENSION Status: Chronic Comment: Spiking today. Will increase meds by adding small dose of hydralazine TID. (11) Morbid obesity Code(s): E66.01 - MORBID (SEVERE) OBESITY DUE TO EXCESS CALORIES Status: Chronic Comment: BMI = 48kg/m2 (12) MARTHA (obstructive sleep apnea) Code(s): G47.33 - OBSTRUCTIVE SLEEP APNEA (ADULT) (PEDIATRIC) Status: Chronic Comment: non complaint w CPAP.Discussed w family (13) Pulmonary arterial hypertension Code(s): I27.2 - OTHER SECONDARY PULMONARY HYPERTENSION * DO NOT USE * Status : Chronic - Plan continue antibiotics, PT/OT, respiratory therapy, incentive spirometry, out of bed/ambulate, DVT proph w/SCDs discussed worsening renal Failure w Nephrology. will give lasix trial -: check ECHO.? Cardiorenal. monitor. and avoid nephrotoxins -: Supportive care. vent weaing per PCCM -: cont empiric ABx. follow Cx.negative so far -: Heparin drip stopped. INR 1.8 on coumadin.monitor * .Tube feeds for now * PRN antihypertensives * P{oor terminal worker prognosis * am labs * Review of Systems - Review of Systems Other: can not be obtained due to sedation and intubation - Medications/Allergies Allergies/Adverse Reactions: Allergies Allergy/AdvReac Type Severity Reaction Status Date / Time No Known Allergies Allergy Verified 08/23/18 07:43 Medications: Current Medications Acetaminophen (Tylenol) 650 mg LA Q4H PRN PRN Reason: Headache/Fever/Mild Pain (1-3) Albuterol/Ipratropium (Duoneb) 3 ml NEB [id number] RAHUL Last Admin: 12/25/18 14:25 Dose: 3 ml Lipase/Protease/Amylase (Tolu Peck 30877) 1 cap PER TUBE ASDIR PRN PRN Reason: TUBE OCCLUSION TX Dextrose/Water (Dextrose 50%) 25 gm SLOW IVP PRN PRN PRN Reason: Hypoglycemia Famotidine (Pepcid) 20 mg SLOW IVP QAM RAHUL Last Admin: 12/25/18 09:41 Dose: 20 mg Furosemide (Lasix) 40 mg SLOW IVP DAILY RAHUL Glucagon (Glucagon) 1 mg IM PRN PRN PRN Reason: Hypoglycemia Fentanyl Citrate 2,000 mcg/ (Sodium Chloride) 100 mls @ 0 mls/hr IV INF RAHUL; Protocol Stop: 01/23/19 01:18 Last Admin: 12/25/18 08:02 Dose: 100 mls Fentanyl Citrate (Fentanyl Bolus) 250 mls @ 0 mls/hr IVPB PRN PRN PRN Reason: Breakthrough pain/agitation Stop: 01/23/19 02:37 Dextrose/Water (D5w) 1,000 mls @ 0 mls/hr IV .Q0M PRN PRN Reason: Hypoglycemia Vancomycin HCl 1.75 gm/ Sodium (Chloride) 500 mls @ 250 mls/hr IVPB .PENDING LEVEL RAHUL Cefepime HCl 1 gm/ Sodium (Chloride) 100 mls @ 200 mls/hr IVPB 0800 [facility] Insulin Human Lispro (Humalog) 0 units SC .MILD SLIDING SCALE PRN PRN Reason: Mild Correctional Scale Last Admin: 12/25/18 10:53 Dose: 2 unit Lorazepam (Ativan) 2 mg SLOW IVP Q1H PRN PRN Reason: Breakthrough agitation Stop: 01/23/19 02:37 Methylprednisolone Sodium Succinate (Solu-Medrol) 40 mg IVP Q6HR [facility] Last Admin: 12/25/18 10:53 Dose: 40 mg Miscellaneous Medication (Ventilator Sedation Protocol) 1 each FS ONE [facility] Stop: 01/23/19 02:16 Miscellaneous Medication (Pharmacy To Dose) 1 each PO PRN PRN PRN Reason: Pharmacy to dose Miscellaneous Medication (Pharmacy To Dose) 1 each IVPB PRN PRN PRN Reason: Pharmacy to dose Morphine Sulfate (Morphine) 2 mg SLOW IVP Q1H PRN PRN Reason: BREAKTHROUGH PAIN/Agitation Stop: 01/23/19 02:37 Discontinue Previous Narcotic Pain Medications And Benzodiazepines 1 each FS .ONE [facility] Stop: 01/23/19 02:37 Ondansetron HCl (Zofran Odt) 4 mg PO Q6H PRN PRN Reason: Nausea/Vomiting Ondansetron HCl (Zofran) 4 mg IVP Q6H PRN PRN Reason: Nausea/Vomiting Propofol (Diprivan) 1,000 mg IV INF PRN; Protocol PRN Reason: TO ACHIEVE GOAL RASS Stop: 01/23/19 02:37 Last Admin: 12/25/18 10:53 Dose: 1,000 mg Propofol (Diprivan Bolus) 20 mg IV Q5MIN PRN PRN Reason: BREAKTHROUGH AGITATION Stop: 01/23/19 02:37 Sodium Bicarbonate (Bicarbonate, Sodium) 650 mg PER TUBE ASDIR PRN PRN Reason: TUBE OCCLUSION TX Sodium Chloride (Flush - Normal Saline) 10 ml IVF Q12HR [facility] Last Admin: 12/25/18 09:41 Dose: 10 ml Sodium Chloride (Flush - Normal Saline) 10 ml IVF PRN PRN PRN Reason: Saline Flush Vecuronium [place] (Norcuron) 10 mg IV Q30MIN PRN PRN Reason: AGITATION Warfarin Sodium (Coumadin) 7.5 mg PO 1700 RAHUL
[2018-12-25] MEDS: Warfarin Sodium 7.5 MG TAB PO SCH (17:43)
[2018-12-26] MEDS: methylPREDNISolone Sod Succ 40 MG VIAL IVP SCH ×4 (00:47→17:30)
[2018-12-26] MEDS: HumaLOG 300 UNITS/3 ML VIAL SC PRN ×5 (00:48→22:52)
[2018-12-26] MEDS: Propofol 1,000 MG/100 ML VIAL IV PRN ×3 (01:00→19:19)
[2018-12-26 05:40] LABS: Prothrombin Time 22.4 SEC (12.0-14.7)
[2018-12-26 05:57] LABS: Anion Gap 21 mmol/L (10-20); BUN (Urea Nitrogen) 103 mg/dL (9.8-20.1); Calc. Creatinine Clearance 26 mL/min (70-130); Calcium 9.3 mg/dL (7.8-10.44); Carbon Dioxide 19 mmol/L (22-29); Chloride 102 mmol/L (98-107); Estimated GFR-MDRD 12; Glucose 192 mg/dL (70-105); Potassium 4.6 mmol/L (3.5-5.1); Sodium 137 mmol/L (136-145)
[2018-12-26 06:12] LABS: #Lymphocytes 0.5 thou/uL (1.20-3.40); #Monocytes 0.5 thou/uL (0.11-0.59); #Neutrophils 15.2 thou/uL (1.40-6.50); %Basophils 0.2 % (0.0-1.0); %Eosinophils 0.1 % (0.0-10.0); %Lymphocytes 3.1 % (21.0-51.0); %Monocytes 2.9 % (0.0-10.0); %Neutrophils 93.8 % (42.0-75.0); Anisocytosis SLIGHT = 6-15 cells (100X) (0-5/hpf); Hemoglobin 9.3 g/dL (12.0-16.0); Hypochromia SLIGHT = 6-15 cells (100X) (0-5/hpf); MDiff Complete? YES; Mean Corpuscular HGB CONC 29.3 g/dL (32.0-36.0); Mean Corpuscular Hemoglobin 23.7 pg (27.0-31.0); Mean Corpuscular Volume 80.9 fL (78.0-98.0); Mean Platelet Volume 10.8 fL (7.4-10.4); Microcytosis SLIGHT = 6-15 cells (100X) (0-5/hpf); Platelet Count 271 thou/uL (130-400); RBC Distribution Width 18.7 % (11.5-14.5); Red Blood Cell (RBC) Count 3.92 mill/uL (4.20-5.40); Schistocytes SLIGHT = 2-5 cells (100X) (0-1/hpf); White Blood Cell (WBC) Count 16.2 thou/uL (4.8-10.8)
[2018-12-26] MEDS: Cefepime 1 GM in Sodium Chloride 0.9% 100 ML IVPB SCH (07:49)
[2018-12-26 07:56] LABS: Actual Bicarbonate (HCO3a) 18.1 mEq/L (22-28); Base Excess (BEa) -8.2 mEq/L (-2.0 to +3.0); CO2 Tension 40.4 mmHg (35.0-45.0); Calcium, Ionized 1.19 mmol/L (1.12-1.30); Carboxyhemoglobin (COHb) 0.7 gm% (0.0-3.0); Hemoglobin (Hb) 10.2 g/dL (12.0-16.0); O2 Tension (PaO2) 53.7 mmHg (80.0-100.0); Potassium - ABG Lab 4.68 mmol/L (3.70-5.30); pH, Arterial 7.27 (7.35-7.45)
[2018-12-26 07:57] LABS: Puncture Site LRA
[2018-12-26] MEDS: Vecuronium 10 MG VIAL IV PRN ×5 (08:18→21:21)
[2018-12-26] MEDS: Furosemide 40 MG/4 ML VIAL SLOW IVP SCH (08:47)
[2018-12-26] MEDS: Famotidine/PF 20 mg/2ml Vial SLOW IVP SCH (08:47)
--- NOTE | 2018-12-26 08:49 | RAD ---
CHEST 1 VIEW: Date: 12/26/18 INDICATION: Daily CCU examination. COMPARISON: Prior exam dated 12/25/18. FINDINGS: ET tube and gastric catheter unchanged. Cardiomegaly and pulmonary vascular congestion is similar braxton earing. Left perihilar opacity is similar appearing. The extent of the perihilar opacities in the rig ht lung appear slightly improved. No pneumothorax is evident. Osseous structures are similar appearin g. IMPRESSION: 1. Persistent left perihilar opacity. 2. Improvement in the right perihilar edema. 3. ET tube and gastric catheter are unchanged. POS: BH
--- NOTE | 2018-12-26 09:18 | PRG ---
DATE OF SERVICE: 12/26/2018 35 minutes critical care time. SUBJECTIVE: The patient remains intubated on mechanical ventilation. She was fighting the ventilator and had grossly elevated peak pressures when I first saw her and this resolved after she was chemically paralyzed. OBJECTIVE: VITAL SIGNS: Temperature is 100.0, pulse 74, blood pressure 98/56. Intake for 24 hours 1701, output 476. HEENT: Unremarkable. NECK: No JVD. LUNGS: Diminished air movement bilaterally. CARDIOVASCULAR: S1, S2. Regular. ABDOMEN: Soft, obese, nontender. EXTREMITIES: Edematous. LABORATORY DATA: White blood cell count 16.2, hematocrit 31.7, and platelet count 271. INR 2.0. PH 7.27, pCO2 of 40, pO2 of 53, that was on SIMV rate of 20, tidal volume of 500, PEEP 13, pressure support 10, FiO2 65%. Sodium 137, potassium 4.6, chloride 102, CO2 of 19, BUN 103, creatinine 4.5, glucose 192. Chest x-ray showed no significant change. She has cardiomegaly and edema bilaterally. ASSESSMENT: 1. Chronic obstructive pulmonary disease with exacerbation. 2. Acute respiratory failure, requiring mechanical ventilation. 3. Fluid overload. 4. Cardiac dysfunction primary diastolic. 5. Acute renal failure. 6. Obstructive sleep apnea. 7. Long-term anticoagulation for previous history of deep venous thrombosis. PLAN: 1. The patient will need to stay paralyzed today due to her respiratory mechanics. 2. Dr. Moreno is seeing her regarding her renal status. This patient may require hemodialysis given the fact that her BUN and creatinine are increasing in the face of continued fluid overload. 3. Continue steroids, antibiotics, nebulization treatments. 4. I spoke with the son at bedside. I think, the patient will have to be kept on mechanical ventilation all weekend. Job ID: [id number]
--- NOTE | 2018-12-26 09:54 | PDOC.PN ---
- Subjective Encounter Start Date: 12/26/18 Encounter Start Time: 12:10 -: non-verbal Subjective: patient remains intubated, getting dialysis this morning. - Objective Resuscitation Status - Order Detail: 12/24/18 02:19 Resuscitation Status Routine Resuscitation Status: FULL: Full Resuscitation MAR Reviewed: Yes Vital Signs & Weight: Vital Signs (12 hours) Temp Pulse Resp BP Pulse Ox 12/26/18 08:00 20 12/26/18 07:27 88 L 12/26/18 07:15 84 97/57 L 12/26/18 07:00 98.6 F 12/26/18 06:00 99.3 F 20 12/26/18 04:00 23 H 12/26/18 02:30 81 23 H 92 L 12/26/18 02:00 98.6 F 20 12/26/18 00:00 20 12/25/18 22:32 73 20 91 L 12/25/18 22:00 20 Weight Admit Weight 261 lb Weight 261 lb 14.546 oz Most Recent Monitor Data Heart Rate from ECG 81 NIBP 98/48 NIBP BP-Mean 64 Respiration from ECG 20 SpO2 94 I&O: 12/25/18 12/26/18 12/27/18 06:59 06:59 06:59 Intake Total 1752 1701 0 Output Total 491 476 20 Balance 1261 1225 -20 Result Diagrams: 12/26/18 04:57 12/26/18 04:57 Additional Labs: Accuchecks 12/26/18 00:48 POC Glucose 190 H Phys Exam - Physical Examination intubated and sedated Respiratory: no wheezing, no rales, no rhonchi Cardiovascular: RRR Gastrointestinal: soft, positive bowel sounds Deviation from normal: intubated and sedated Dx/Plan (1) Acute and chronic respiratory failure Code(s): J96.20 - ACUTE AND CHR RESP FAILURE, UNSP W HYPOXIA OR HYPERCAPNIA Status: Acute Qualifiers: Respiratory failure complication: hypoxia and hypercapnia Qualified Code(s) : J96.21 - Acute and chronic respiratory failure with hypoxia; J96.22 - Acute and chronic respiratory failure with hypercapnia Comment: Multifactorial. Intubated and paralyzed. Pulm managing. (2) COPD exacerbation Code(s): J44.1 - CHRONIC OBSTRUCTIVE PULMONARY DISEASE W (ACUTE) EXACERBATION Status: Acute (3) Acute on chronic stage C diastolic heart failure Code(s): I50.33 - ACUTE ON CHRONIC DIASTOLIC (CONGESTIVE) HEART FAILURE Status : Acute Comment: on diuresis. continue.monitor I/Os (4) Bronchopneumonia Code(s): J18.0 - BRONCHOPNEUMONIA, UNSPECIFIED ORGANISM Status: Acute Comment: on Cefepime since 12/24/18 (5) Acute renal failure superimposed on stage 3 chronic kidney disease Code(s): N17.9 - ACUTE KIDNEY FAILURE, UNSPECIFIED; N18.3 - CHRONIC KIDNEY DISEASE, STAGE 3 (MODERATE) Status: Acute Comment: Dr. Moreno consulted; volume overloaded with poor urine output and elevated creatinine, like ATN from sepsis, may need dialysis (6) Chronic anticoagulation Code(s): Z79.01 - ANIMAL SCIENCE INSTRUCTOR (CURRENT) USE OF ANTICOAGULANTS Status: Chronic Comment: on coumadin for H/O DVT.Monitor daily INR (7) DM type 2 (diabetes mellitus, type 2) Status: Chronic Qualifiers: Diabetes mellitus rat exterminator insulin use: with rat exterminator use Diabetes mellitus complication status: with kidney complications Diabetes mellitus complication detail: with chronic kidney disease Chronic kidney disease stage : stage 3 (moderate) Qualified Code(s): E11.22 - Type 2 diabetes mellitus with diabetic chronic kidney disease; N18.3 - Chronic kidney disease, stage 3 ( moderate); Z79.4 - moth exterminator (current) use of insulin Comment: Controlled. (8) Deep venous thrombosis, chronic Code(s): I82.509 - CHRONIC EMBOLISM AND THOMBOS UNSP DEEP VN UNSP LOW EXTRM Status: Chronic Comment: states h/o Right lower ext DVT few years ago; reports her PCP stated she will be on anticoagulation "indefinitely". no family history of VTE (9) HLD (hyperlipidemia) Code(s): E78.5 - HYPERLIPIDEMIA, UNSPECIFIED Status: Chronic (10) Hypertension Code(s): I10 - ESSENTIAL (PRIMARY) HYPERTENSION Status: Chronic Comment: Spiking today. Will increase meds by adding small dose of hydralazine TID. (11) Microcytic anemia Code(s): D50.9 - IRON DEFICIENCY ANEMIA, UNSPECIFIED Status: Chronic Comment : Progressive slow decline in H/H over past several weeks. She is on oral iron. No overt blood loss. May need IV iron. Probably also needs GI to evaluate for endoscopy -- can be done as an outpatient. (12) Morbid obesity Code(s): E66.01 - MORBID (SEVERE) OBESITY DUE TO EXCESS CALORIES Status: Chronic Comment: BMI = 48kg/m2 (13) MARTHA (obstructive sleep apnea) Code(s): G47.33 - OBSTRUCTIVE SLEEP APNEA (ADULT) (PEDIATRIC) Status: Chronic Comment: non complaint w CPAP.Discussed w family (14) Pulmonary arterial hypertension Code(s): I27.2 - OTHER SECONDARY PULMONARY HYPERTENSION * DO NOT USE * Status : Chronic - Plan cont current plan of care, continue antibiotics, respiratory therapy * . - Discharge Day Encounter end time: 12:20
[2018-12-26] MEDS ORDERED: Heparin 10,000 UNITS/ 10 ML VIAL ONE (11:11)
[2018-12-26] MEDS: fentaNYL Citrate/PF 2,000 MCG in Sodium Chloride 0.9% 60 ML IV SCH (12:20)
--- NOTE | 2018-12-26 12:22 | PRG ---
DATE OF SERVICE: 12/26/2018 SUBJECTIVE: A 58-year-old female being seen for acute kidney injury. OBJECTIVE: See above. CONSTITUTIONAL: The patient is intubated. VITAL SIGNS: Afebrile. Pulse 80, breathing 16, blood pressure 85/53. GENERAL APPEARANCE AND MENTAL STATUS: Fair. HEAD/NECK: Normocephalic. Atraumatic. EYES: EOMI. No deformity. EARS: Clear. No ulcers. NOSE: Intact. No lesions. MOUTH: Clear. No discharge. THROAT: Clear. No exudate. LUNGS: Clear. No crackles. CARDIAC: S1, S2. No rub. ABDOMEN: Benign. Bowel sounds positive. GENITALIA/RECTUM: Beck absent. BACK/EXTREMITIES: Edema 0+. NEUROLOGICAL: The patient is resting. SKIN: LYMPHATICS: LABORATORY DATA: Reviewed IMPRESSION AND PLAN: 1. Stage 5 chronic kidney disease with anuria. We will plan dialysis due to pulmonary edema. Risks versus benefits of dialysis were discussed. Family agreed. Prognosis is going to be poor, if the blood pressure drops . 2. Anemia, stable. 3. Medication based on GFR appropriate. Overall prognosis is poor. Job ID: [id number]
[2018-12-26 14:32] LABS: HBSAg Index 0.29 S/CO (0-0.99); Hep B Surf Ag Non-Reactive S/CO (NonReactive)
[2018-12-26 14:33] LABS: HBSAB Concentration 74.71 mIU/mL; Hep B Surf AB Reactive (NonReactive)
[2018-12-26] MEDS: Warfarin Sodium 7.5 MG TAB PO SCH (17:14)
--- NOTE | 2018-12-26 20:15 | ULT ---
BILATERAL UPPER EXTREMITY VENOUS DOPPLER ULTRASOUND FOR DIALYSIS ACCESS 12/26/18 HISTORY: End-stage renal disease. FINDINGS: RIGHT UPPER EXTREMITY BRACHIAL ARTERY: 4 mm RADIAL ARTERY: 2.1 mm ULNAR ARTERY: 2.5 mm CEPHALIC VEIN Proximal Arm: 3.9 mm Mid Arm: 4.7 mm Distal Arm: 4.4 mm Antecubital Fossa: 3 mm Proximal Forearm: 1.9 mm Mid Forearm: 1 mm Distal Forearm: 1.4 mm BASILIC VEIN Proximal Arm: 5.1 mm Mid Arm: 5.2 mm Distal Arm: 5.8 mm Antecubital Fossa: 3.6 mm Proximal Forearm: 2.3 mm Mid Forearm: 2 mm Distal Forearm: 2.3 mm LEFT UPPER EXTREMITY BRACHIAL ARTERY: 4.8 mm RADIAL ARTERY: 2.4 mm ULNAR ARTERY: 2.1 mm CEPHALIC VEIN Proximal Arm: 4.9 mm Mid Arm: 5.1 mm Distal Arm: 4.3 mm Antecubital Fossa: 4.8 mm Proximal Forearm: 4.2 mm Mid Forearm: 3.2 mm Distal Forearm: 3.5 mm BASILIC VEIN Proximal Arm: 5.5 mm Mid Arm: 5.3 mm Distal Arm: 6.1 mm Antecubital Fossa: 5.9 mm Proximal Forearm: 2.1 mm Mid Forearm: 1.7 mm Distal Forearm: 1.4 mm POS: [facility]
--- NOTE | 2018-12-26 23:07 | HP ---
HISTORY OF PRESENT ILLNESS: Bam Rodriguez is a 58-year-old black female, morbidly obese, 5 feet 7 inches, 261 pounds over 40 BMI. She presented to the hospital 12/24/2018, admitted to the hospitalist service, has been seen by Dr. Moreno, Nephrology, and Dr. Redmond. The patient progressed to respiratory failure, requiring mechanical ventilation. She has a history of chronic kidney disease, echocardiogram 60% to 65%, grade 1-3 diastolic dysfunction, moderate tricuspid regurgitation and pulmonic regurgitation. She has a potassium of 4.6, BUN 103, creatinine 4.53, GFR of 12. This has rapidly deteriorated since being in the hospital. She has a long history of chronic kidney disease as stated above. She has a history of hypertension and is on Coumadin. I have been asked to see her by Dr. Moreno to place a hemodialysis catheter urgently to initiate dialysis. ALLERGIES: NONE. PAST MEDICAL HISTORY: COPD, hypertension, morbid obesity, chronic diastolic heart failure on home oxygen with chronic hypoxic respiratory failure, chronic kidney disease, chronic anticoagulation, history of DVT, diabetes mellitus, dyslipidemia, hypertension, sleep apnea, noncompliant with CPAP, and pulmonary hypertension. PAST SURGICAL HISTORY: Hysterectomy. SOCIAL HISTORY: Past records reflect absence of drug, alcohol or tobacco use. She is a former smoker. MEDICATIONS: At home, medications include: 1. Medrol Dosepak. 2. Hydralazine. 3. Coumadin 5 mg a day. 4. Potassium chloride. 5. Montelukast sodium. 6. Metoprolol-XL 50 mg a day. 7. Levaquin daily 500 mg. 8. Furosemide 40 mg a day. 9. Advair Diskus. 10. Tessalon as needed. 11. Lipitor 10 mg a day. 12. Aspirin 81 mg a day. 13. Amlodipine 10 mg a day. 14. Allopurinol 300 mg a day. 15. Albuterol daily. PHYSICAL EXAMINATION: VITAL SIGNS: Blood pressure 191/54, pulse 63, temperature 99 degrees. LUNGS: Clear to auscultation. CARDIAC: Regular rate and rhythm without murmur or gallop. ABDOMEN: Soft, obese, nontender. Ecchymosis of forearms, IVs distal volar right forearm and mid forearm, right ecchymosis, left antecubital area and forearm indicative of previous blood draws. She has a large pannus dependent. LABORATORY DATA: White count 16, hemoglobin 9. ASSESSMENT AND PLAN: 1. Respiratory failure. Continue ventilator per Pulmonary. 2. Chronic superimposed acute kidney injury on chronic kidney disease, secondary to hypertensive nephropathy. We will place bedside hemodialysis catheter and initiate dialysis. She likely will need long-term dialysis. No IVs or blood draws above her wrist. IV and blood draw access, groin catheter. We will plan placement of a cuffed tunneled hemodialysis catheter on Saturday, as well as possible fistula ultrasound vein mapping in both arms for dialysis access. Job ID: [id number]
[2018-12-27] MEDS: methylPREDNISolone Sod Succ 40 MG VIAL IVP SCH ×4 (00:41→20:33)
[2018-12-27] MEDS: Propofol 1,000 MG/100 ML VIAL IV PRN ×3 (00:45→21:34)
[2018-12-27] MEDS: fentaNYL Citrate/PF 2,000 MCG in Sodium Chloride 0.9% 60 ML IV SCH ×2 (01:36→14:41)
[2018-12-27] MEDS: Vecuronium 10 MG VIAL IV PRN (04:29)
[2018-12-27] MEDS: HumaLOG 300 UNITS/3 ML VIAL SC PRN ×4 (05:31→20:37)
[2018-12-27 05:59] LABS: Anion Gap 16 mmol/L (10-20); BUN (Urea Nitrogen) 87 mg/dL (9.8-20.1); Calc. Creatinine Clearance 35 mL/min (70-130); Calcium 8.9 mg/dL (7.8-10.44); Carbon Dioxide 24 mmol/L (22-29); Chloride 100 mmol/L (98-107); Estimated GFR-MDRD 17; Glucose 219 mg/dL (70-105); Potassium 4.1 mmol/L (3.5-5.1); Sodium 136 mmol/L (136-145)
[2018-12-27 06:28] LABS: #Lymphocytes 0.6 thou/uL (1.20-3.40); #Monocytes 0.4 thou/uL (0.11-0.59); #Neutrophils 10.3 thou/uL (1.40-6.50); %Eosinophils 0.2 % (0.0-10.0); %Lymphocytes 4.9 % (21.0-51.0); %Monocytes 3.8 % (0.0-10.0); %Neutrophils 91.1 % (42.0-75.0); Anisocytosis SLIGHT = 6-15 cells (100X) (0-5/hpf); Elliptocytes SLIGHT = 2-5 cells (100X) (0-1/hpf); Hemoglobin 8.9 g/dL (12.0-16.0); MDiff Complete? YES; Mean Corpuscular HGB CONC 30.3 g/dL (32.0-36.0); Mean Corpuscular Hemoglobin 24.1 pg (27.0-31.0); Mean Corpuscular Volume 79.6 fL (78.0-98.0); Mean Platelet Volume 11.6 fL (7.4-10.4); Platelet Count 216 thou/uL (130-400); Platelet Morphology Comment Appears Adequate; Polychromasia SLIGHT = 2-3 cells (100X) (0-2/hpf); RBC Distribution Width 18.7 % (11.5-14.5); Red Blood Cell (RBC) Count 3.67 mill/uL (4.20-5.40); White Blood Cell (WBC) Count 11.3 thou/uL (4.8-10.8)
[2018-12-27 06:51] LABS: Actual Bicarbonate (HCO3a) 24.3 mEq/L (22-28); Base Excess (BEa) 0.3 mEq/L (-2.0 to +3.0); CO2 Tension 36.7 mmHg (35.0-45.0); Calcium, Ionized 1.13 mmol/L (1.12-1.30); Carboxyhemoglobin (COHb) 1.3 gm% (0.0-3.0); Hemoglobin (Hb) 9.9 g/dL (12.0-16.0); Potassium - ABG Lab 4.05 mmol/L (3.70-5.30); pH, Arterial 7.44 (7.35-7.45)
[2018-12-27 06:59] LABS: ALV-art Gradient 362.075 (0-20); O2 Tension (PaO2) 55.5 mmHg (80.0-100.0); Puncture Site RRA
[2018-12-27] MEDS: Cefepime 1 GM in Sodium Chloride 0.9% 100 ML IVPB SCH (08:37)
[2018-12-27] MEDS: Furosemide 40 MG/4 ML VIAL SLOW IVP SCH (08:38)
[2018-12-27] MEDS: Famotidine/PF 20 mg/2ml Vial SLOW IVP SCH (08:38)
--- NOTE | 2018-12-27 08:48 | PRG ---
DATE OF SERVICE: 12/27/2018 SERVICE: Pulmonary Medicine. INTERVAL HISTORY: The patient is doing fairly well from a respiratory standpoint. She is no longer requiring intermittent paralytics. She cannot provide any additional elements of the history because she is currently requiring some sedating medications. They got 700 off with dialysis yesterday. Oxygen requirements have dramatically improved. PHYSICAL EXAMINATION: VITAL SIGNS: Afebrile. Pulse 71, blood pressure 114/60, respirations 20, and saturation 97% on 51% FiO2 and a PEEP of 7. GENERAL: The patient is intubated and sedated. HEENT: Normocephalic and atraumatic. Sclerae white. Conjunctivae pink. Oral mucosa is moist without lesions. LUNGS: Excellent air entry. There are some crackles dependently, but nothing anteriorly. There is not much of a prolonged expiratory phase today. No wheezing is appreciated right now. HEART: Normal rate. Regular. ABDOMEN: Soft. Nontender nondistended. Bowel sounds are hypoactive. GENITOURINARY: Beck catheter in place. NEUROLOGIC: Grossly nonfocal. LABORATORY DATA: WBC 11.3, hemoglobin 8.9 and stable, platelets 216,000. Neutrophil count is 91%, and gently downtrending. INR 2.0. PH 7.44, pCO2 37, PO2 55, corresponding to a saturation of 88%. Creatinine 3.39. Basic metabolic profile is otherwise unremarkable. BUN is downtrending to 87 with dialysis. Blood cultures x2 are unremarkable. IMAGING: Chest x-ray demonstrates endotracheal tube roughly 4 to 5 cm above the level of the thomas. Fairly impressive cardiac silhouette is present. The patient is severely rotated. There is likely a layering pleural effusion on the left. Volume loss is present on the right. ASSESSMENT: 1. Acute hypoxic and hypercapnic respiratory failure. 2. Chronic obstructive pulmonary disease with acute exacerbation. 3. Acute kidney injury. 4. Acute on chronic diastolic heart failure. 5. Obstructive sleep apnea. 6. History of deep venous thrombosis, requiring anticoagulation. DISCUSSION AND PLAN: The patient is doing okay from respiratory standpoint. The mechanics of her lungs are much improved compared to yesterday. That being said, her oxygen requirements are still too great to safely consider extubation. Pulmonary/Critical Care will continue to follow along in this location. We will minimize sedation over the next 24 hours. Hopefully, she will tolerate dialysis a little bit more robustly today and we can facilitate fluid removal. CRITICAL CARE TIME: 30 minutes. Job ID: [id number]
--- NOTE | 2018-12-27 09:52 | RAD ---
PORTABLE CHEST: Date: 12/27/18 HISTORY: CCU follow-up. COMPARISON: 12/26/18. FINDINGS: ET tube is in place. Exam is suboptimal due to poor positioning and exposure. I cannot exclude left b asilar atelectasis or infiltrate. Upper lung zones appear aerated and clear. IMPRESSION: Suboptimal exam. No definite interval change apparent. POS: OFF
--- NOTE | 2018-12-27 14:26 | PRG ---
DATE OF SERVICE: 12/27/2018 SUBJECTIVE: A 58-year-old female, being seen for acute kidney injury. The patient was dialyzed yesterday with 700 mL out. The patient is continuing to make urine. OBJECTIVE: CONSTITUTIONAL: The patient is intubated. GENERAL APPEARANCE AND MENTAL STATUS: Fair. VITAL SIGNS: Afebrile, pulse 60, breathing 16, blood pressure 115/60. HEAD/NECK: Normocephalic. Atraumatic. EYES: EOMI. No deformity. EARS: Clear. No ulcers. NOSE: Intact. No lesions. MOUTH: Clear. No discharge. THROAT: Clear. No exudate. LUNGS: Clear. No crackles. CARDIAC: S1, S2. No rub. ABDOMEN: Benign. Bowel sounds positive. GENITALIA/RECTUM: Beck absent. BACK/EXTREMITIES: Edema 0+. NEUROLOGICAL: The patient is resting. SKIN: LYMPHATICS: LABORATORY DATA: Reviewed. ASSESSMENT AND PLAN: 1. Acute kidney injury, stable. 2. Hypertension, stable. 3. Anemia, stable. 4. No indication for dialysis at this time. Job ID: [id number]
[2018-12-27] MEDS: Lorazepam 2 MG/ML VIAL SLOW IVP PRN (15:14)
[2018-12-27] MEDS ORDERED: Vecuronium 10 MG VIAL ONE (16:41)
[2018-12-27] MEDS: Warfarin Sodium 7.5 MG TAB PO SCH (16:48)
--- NOTE | 2018-12-27 18:59 | PDOC.PN ---
- Subjective Encounter Start Date: 12/27/18 Encounter Start Time: 18:50 Subjective: f/u for resp failure on mech ventilation. Receiving Cefepime, Solumdedrol -: Valerie Coreas. - Objective Resuscitation Status - Order Detail: 12/24/18 02:19 Resuscitation Status Routine Resuscitation Status: FULL: Full Resuscitation MAR Reviewed: Yes Vital Signs & Weight: Vital Signs (12 hours) Temp Pulse Resp BP Pulse Ox 12/27/18 18:00 19 12/27/18 16:00 99.1 F 19 12/27/18 14:13 72 109/63 12/27/18 14:11 72 19 95 12/27/18 14:00 19 12/27/18 12:00 19 12/27/18 10:12 66 123/73 12/27/18 10:10 67 19 95 12/27/18 10:00 44 H 12/27/18 08:00 19 12/27/18 07:32 97 Weight Admit Weight 261 lb 14.546 oz Weight 261 lb 14.546 oz Most Recent Monitor Data Heart Rate from ECG 62 NIBP 121/75 NIBP BP-Mean 90 Respiration from ECG 19 SpO2 100 I&O: 12/26/18 12/27/18 12/28/18 06:59 06:59 06:59 Intake Total 1701 1453 1018 Output Total 476 1170 900 Balance 1225 283 118 Result Diagrams: 12/27/18 04:30 12/27/18 04:30 Additional Labs: Microbiology 12/24/18 01:59 Venous blood - Right Hand Blood Culture - Preliminary NO GROWTH AT 48 HOURS 12/24/18 01:59 Venous blood - Left Arm Blood Culture - Preliminary NO GROWTH AT 48 HOURS Laboratory Tests 12/24/18 12/25/18 12/25/18 04:05 04:30 06:30 WBC 39.0 H 15.2 H Hgb 9.8 L 8.6 L INR 1.8 Hep Bs Antigen Hep Bs Antibody Hep Bs Antibody Index 12/26/18 12/26/18 12/26/18 04:57 04:57 13:29 WBC 16.2 H Hgb 9.3 L INR 2.0 Hep Bs Antigen Non-Reactive Hep Bs Antibody Reactive Hep Bs Antibody Index 74.71 Radiology Reviewed by me: Yes (PCXR - bibasilar atelectasis, ? effusion, ETT in place) EKG Reviewed by me: Yes (Tele - SR) Phys Exam - Physical Examination sedate on mech ventilation ETT in place HEENT: sclera anicteric, oral pharynx no lesions Neck: no nodes, no JVD, supple, full ROM diminished in bases Respiratory: no wheezing, no rales, no rhonchi Gastrointestinal: soft, non-tender, no distention, positive bowel sounds Musculoskeletal: no edema, pulses present sedate on mech vent Skin: normal turgor, cap refill <2 seconds Dx/Plan (1) Acute respiratory failure with hypoxia and hypercapnia Code(s): J96.01 - ACUTE RESPIRATORY FAILURE WITH HYPOXIA; J96.02 - ACUTE RESPIRATORY FAILURE WITH HYPERCAPNIA Status: Acute Comment: Continue mech ventilation weaning as clinically indicated, PCXR in am (2) COPD exacerbation Code(s): J44.1 - CHRONIC OBSTRUCTIVE PULMONARY DISEASE W (ACUTE) EXACERBATION Status: Acute Comment: Continue Duonebs, Solumedrol, mech ventilation, Cefepime (3) Acute kidney injury superimposed on CKD Code(s): N17.9 - ACUTE KIDNEY FAILURE, UNSPECIFIED; N18.9 - CHRONIC KIDNEY DISEASE, UNSPECIFIED Status: Acute Comment: s/p HD, serial creatinine monitoring (4) Chronic anticoagulation Code(s): Z79.01 - PERIODONTIST (CURRENT) USE OF ANTICOAGULANTS Status: Chronic Comment: Continue Coumadin, Monitor daily INR (5) DM type 2 (diabetes mellitus, type 2) Status: Chronic Qualifiers: 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 local intermodal truck driver use Diabetes mellitus complication status: with kidney complications Diabetes mellitus complication detail: with chronic kidney disease Chronic kidney disease stage : stage 3 (moderate) Qualified Code(s): E11.22 - Type 2 diabetes mellitus with diabetic chronic kidney disease; N18.3 - Chronic kidney disease, stage 3 ( moderate); Z79.4 - prison (current) use of insulin Comment: ISS, accuchecks, ADA, labile due to Solumedrol - Plan continue antibiotics, social services analyst, respiratory therapy, DVT proph w/SCDs Continue Mech ventilation per PCCM -: Continue Duonebs, Solumedrol -: Wean sedation per protocol -: Continue Coumadin 7.5mg daily -: AM lab: BMP, CBC, Mg++, PO3, ABG, PT/INR * .
[2018-12-28] MEDS: fentaNYL Citrate/PF 2,000 MCG in Sodium Chloride 0.9% 60 ML IV SCH ×2 (03:24→19:06)
[2018-12-28] MEDS: HumaLOG 300 UNITS/3 ML VIAL SC PRN ×4 (04:42→22:32)
[2018-12-28 05:06] LABS: INR-International Normal Ratio 3.1; Prothrombin Time 32.2 SEC (12.0-14.7)
[2018-12-28 05:27] LABS: #Lymphocytes 0.4 thou/uL (1.20-3.40); #Monocytes 0.4 thou/uL (0.11-0.59); %Basophils 0.1 % (0.0-1.0); %Eosinophils 0.2 % (0.0-10.0); %Lymphocytes 5.2 % (21.0-51.0); %Neutrophils 89.4 % (42.0-75.0); Hemoglobin 8.9 g/dL (12.0-16.0); Mean Corpuscular HGB CONC 29.9 g/dL (32.0-36.0); Mean Corpuscular Hemoglobin 23.5 pg (27.0-31.0); Mean Corpuscular Volume 78.7 fL (78.0-98.0); Mean Platelet Volume 7.1 fL (7.4-10.4); Platelet Count 169 thou/uL (130-400); RBC Distribution Width 18.5 % (11.5-14.5); Red Blood Cell (RBC) Count 3.79 mill/uL (4.20-5.40); White Blood Cell (WBC) Count 7.8 thou/uL (4.8-10.8)
[2018-12-28 05:28] LABS: Anisocytosis SLIGHT = 6-15 cells (100X) (0-5/hpf); Elliptocytes SLIGHT = 2-5 cells (100X) (0-1/hpf); Hypochromia SLIGHT = 6-15 cells (100X) (0-5/hpf); MDiff Complete? YES; Platelet Morphology Comment Appears Adequate; Polychromasia SLIGHT = 2-3 cells (100X) (0-2/hpf)
[2018-12-28 05:29] LABS: Phosphorus 6.7 mg/dL (2.3-4.7)
[2018-12-28 05:35] LABS: Anion Gap 17 mmol/L (10-20); BUN (Urea Nitrogen) 119 mg/dL (9.8-20.1); Calc. Creatinine Clearance 33 mL/min (70-130); Carbon Dioxide 24 mmol/L (22-29); Chloride 101 mmol/L (98-107); Estimated GFR-MDRD 16; Glucose 257 mg/dL (70-105); Magnesium 2.5 mg/dL (1.6-2.6); Potassium 4.2 mmol/L (3.5-5.1); Sodium 138 mmol/L (136-145)
[2018-12-28] MEDS: Propofol 1,000 MG/100 ML VIAL IV PRN (05:56)
[2018-12-28 06:38] LABS: Actual Bicarbonate (HCO3a) 23.7 mEq/L (22-28); Base Excess (BEa) -3.5 mEq/L (-2.0 to +3.0); CO2 Tension 52.5 mmHg (35.0-45.0); Carboxyhemoglobin (COHb) 0.7 gm% (0.0-3.0); Hemoglobin (Hb) 10.7 g/dL (12.0-16.0); O2 Tension (PaO2) 100.4 mmHg (80.0-100.0); pH, Arterial 7.27 (7.35-7.45)
[2018-12-28 07:35] LABS: ALV-art Gradient 261.775 (0-20); Puncture Site RRA
--- NOTE | 2018-12-28 08:14 | PRG ---
DATE OF SERVICE: 12/28/2018 SERVICE: Pulmonary Medicine. INTERVAL HISTORY: The patient is doing okay from respiratory standpoint. She really has a weird pattern of breathing. She contracts her abdominal muscles until it is time to take another breath. That being said, she does not have much in the way of expiratory airflow limitation. I turned her rate way down, and we did not lose anything for minute volume. She seemed to be more comfortable with this. She cannot provide any complaints. Otherwise, there were no significant events. PHYSICAL EXAMINATION: VITAL SIGNS: Afebrile, pulse 73, blood pressure 113/69, respirations 21, and saturation 99% on 7 of PEEP and a FiO2 of 50%. GENERAL: The patient is intubated. She is requiring some sedation, but also encephalopathic/anoxic. HEENT: Normocephalic and atraumatic. Sclerae are white. Conjunctivae are pink. Oral mucosa is moist without lesions. LUNGS: Decent air entry. Crackles are present. No prolonged expiratory phase is present. HEART: Normal rate, regular. ABDOMEN: Soft, nontender, and nondistended. Bowel sounds are positive. MUSCULOSKELETAL: No cyanosis or clubbing. There is trace to 1+ pitting in bilateral lower extremities. LABORATORY DATA: WBC 7.8, hemoglobin 8.9, and platelets 169,000. INR 3.1 and gently up-trending. PH of 7.27, pCO2 of 53, and pO2 of 100.4, corresponding to a saturation of 97%. Creatinine 3.57 and roughly stable, BUN 119 and up-trending. Basic metabolic profile is otherwise unremarkable. Phosphorus 6.7, magnesium 2.5. Blood cultures x2 are negative. ASSESSMENT: 1. Acute hypoxic and hypercapnic respiratory failure. 2. Chronic obstructive pulmonary disease with acute exacerbation, improving. 3. Acute kidney injury. 4. Acute on chronic diastolic heart failure. 5. Obstructive sleep apnea. 6. History of deep venous thrombosis, requiring anticoagulation. DISCUSSION AND PLAN: Because of the antibiotics, her blood got a little thin. As such, we will hold her Coumadin for one or two nights. We will continue trending her INR through time. Urine output seems to be improving. We will need to continue doing dialysis intermittently in order to promote removal of fluid. I will put her on Precedex to see if we can interrupt the fentanyl and propofol. I am primarily doing this to see whether or not this improves her style of ventilation, which is abnormal at best. Oxygen requirements and mentation prevents us from extubating the patient, which will be working on through the day. CRITICAL CARE TIME: 30 minutes. Job ID: [id number] MTDD
[2018-12-28] MEDS: Furosemide 40 MG/4 ML VIAL SLOW IVP SCH (08:54)
[2018-12-28] MEDS: Famotidine/PF 20 mg/2ml Vial SLOW IVP SCH (08:54)
[2018-12-28] MEDS: methylPREDNISolone Sod Succ 40 MG VIAL IVP SCH ×2 (08:54→21:15)
[2018-12-28] MEDS: Cefepime 1 GM in Sodium Chloride 0.9% 100 ML IVPB SCH (08:54)
--- NOTE | 2018-12-28 11:27 | PDOC.PN ---
- Subjective Encounter Start Date: 12/28/18 Encounter Start Time: 11:25 Patient seen and examined, no family at bedside. - Objective Resuscitation Status - Order Detail: 12/24/18 02:19 Resuscitation Status Routine Resuscitation Status: FULL: Full Resuscitation Vital Signs & Weight: Vital Signs (12 hours) Temp Pulse Resp BP Pulse Ox 12/28/18 10:14 5 L 12/28/18 10:06 76 109/71 12/28/18 10:04 76 5 L 97 12/28/18 07:37 5 L 100 12/28/18 06:31 73 102/87 12/28/18 06:30 73 19 99 12/28/18 06:00 19 12/28/18 04:00 98.0 F 12/28/18 02:25 61 12/28/18 02:24 99 12/28/18 02:00 19 12/28/18 00:00 97.9 F 12/27/18 23:28 66 109/69 97 Weight Admit Weight 261 lb 14.546 oz Weight 261 lb 14.546 oz Most Recent Monitor Data Heart Rate from ECG 75 NIBP 122/75 NIBP BP-Mean 90 Respiration from ECG 14 SpO2 98 I&O: 12/27/18 12/28/18 12/29/18 06:59 06:59 06:59 Intake Total 1453 2085.2 90 Output Total 1170 1530 73 Balance 283 555.2 17 Result Diagrams: 12/28/18 04:32 12/28/18 04:32 Additional Labs: Accuchecks 12/28/18 12/27/18 12/27/18 04:37 20:26 15:46 POC Glucose 258 H 170 H 180 H 12/27/18 12/26/18 12/26/18 10:04 22:51 15:55 POC Glucose 248 H 223 H 181 H 12/26/18 12/26/18 12/25/18 11:42 06:24 17:59 POC Glucose 227 H 183 H 192 H 12/25/18 12/25/18 10:54 05:51 POC Glucose 181 H 188 H Phys Exam - Physical Examination sedated HEENT: PERRLA +ET tube Neck: no nodes, no JVD, supple Respiratory: wheezing present coarse breath sounds increase in AP diameter Cardiovascular: no significant murmur, no rub tachycardia Gastrointestinal: soft, non-tender, no distention, positive bowel sounds Musculoskeletal: pulses present, edema present Dx/Plan (1) Acute kidney injury superimposed on CKD Code(s): N17.9 - ACUTE KIDNEY FAILURE, UNSPECIFIED; N18.9 - CHRONIC KIDNEY DISEASE, UNSPECIFIED Status: Acute Comment: s/p HD, serial creatinine monitoring (2) COPD exacerbation Code(s): J44.1 - CHRONIC OBSTRUCTIVE PULMONARY DISEASE W (ACUTE) EXACERBATION Status: Acute Comment: Continue Duonebs, Solumedrol, mech ventilation, Cefepime (3) Acute diastolic CHF (congestive heart failure) Code(s): I50.31 - ACUTE DIASTOLIC (CONGESTIVE) HEART FAILURE Status: Acute Comment: Patient continuing to diurese well. Creatinine stable. 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: with usp use Diabetes mellitus complication status: with kidney complications Diabetes mellitus complication detail: with chronic kidney disease Chronic kidney disease stage : stage 3 (moderate) Qualified Code(s): E11.22 - Type 2 diabetes mellitus with diabetic chronic kidney disease; N18.3 - Chronic kidney disease, stage 3 ( moderate); Z79.4 - watermelon inspector (current) use of insulin Comment: ISS, accuchecks, ADA, labile due to Solumedrol (5) HLD (hyperlipidemia) Code(s): E78.5 - HYPERLIPIDEMIA, UNSPECIFIED Status: Chronic (6) Hypertension Code(s): I10 - ESSENTIAL (PRIMARY) HYPERTENSION Status: Chronic Comment: Spiking today. Will increase meds by adding small dose of hydralazine TID. (7) Morbid obesity Code(s): E66.01 - MORBID (SEVERE) OBESITY DUE TO EXCESS CALORIES Status: Chronic Comment: BMI = 48kg/m2 - Plan * cont abx, blood cultres negative @ 48hrs * renal function improving, baseline Cr about 2 * BP stable * pulmonary working diligently to try and wean off ventilator, this may be a bit difficult * labs stable, monitor daily * prognosis guarded * no family at bedside, call placed to to family at [phone], Ms Sophia Rodriguez , no answer
--- NOTE | 2018-12-28 13:37 | PRG ---
DATE OF SERVICE: 12/28/2018 SUBJECTIVE: This is a 58-year-old female being seen for acute kidney injury. The patient was nonoliguric, but is oliguric today. OBJECTIVE: GENERAL: On examination, the patient is resting. VITAL SIGNS: Afebrile, pulse 72, breathing 16, and blood pressure 115/86. HEENT: Head is normocephalic, atraumatic. NECK: Supple. No JVD. CHEST: Symmetrical and clear. CARDIOVASCULAR: Show S1 and S2. EXTREMITIES: Show no edema. LABORATORY DATA: Reviewed. Creatinine is 3.5. ASSESSMENT AND PLAN: 1. Acute kidney injury with chronic kidney disease, stage 4, progressive due to acute tubular necrosis. No urgent indication for dialysis. 2. Edema. Plan dialysis tomorrow. 3. Hypertension, stable. 4. Sepsis, management per Primary Team. 5. Respiratory failure. Overall prognosis is poor. Job ID: [id number]
[2018-12-29 04:35] LABS: INR-International Normal Ratio 3.3; Prothrombin Time 33.7 SEC (12.0-14.7)
[2018-12-29 04:54] LABS: Anion Gap 18 mmol/L (10-20); Calc. Creatinine Clearance 34 mL/min (70-130); Calcium 9.1 mg/dL (7.8-10.44); Carbon Dioxide 24 mmol/L (22-29); Chloride 102 mmol/L (98-107); Estimated GFR-MDRD 17; Glucose 294 mg/dL (70-105); Potassium 4.9 mmol/L (3.5-5.1); Sodium 139 mmol/L (136-145)
[2018-12-29 05:05] LABS: BUN (Urea Nitrogen) 134 mg/dL (9.8-20.1)
[2018-12-29] MEDS: HumaLOG 300 UNITS/3 ML VIAL SC PRN ×4 (05:44→22:07)
[2018-12-29 05:48] LABS: #Lymphocytes 0.4 thou/uL (1.20-3.40); #Monocytes 0.7 thou/uL (0.11-0.59); #Neutrophils 13.6 thou/uL (1.40-6.50); %Eosinophils 0.1 % (0.0-10.0); %Lymphocytes 2.6 % (21.0-51.0); %Monocytes 4.9 % (0.0-10.0); %Neutrophils 92.3 % (42.0-75.0); Anisocytosis SLIGHT = 6-15 cells (100X) (0-5/hpf); Elliptocytes SLIGHT = 2-5 cells (100X) (0-1/hpf); Hemoglobin 9.4 g/dL (12.0-16.0); MDiff Complete? YES; Mean Corpuscular HGB CONC 30.1 g/dL (32.0-36.0); Mean Corpuscular Hemoglobin 23.8 pg (27.0-31.0); Mean Corpuscular Volume 79.2 fL (78.0-98.0); Mean Platelet Volume 6.8 fL (7.4-10.4); Platelet Count 156 thou/uL (130-400); RBC Distribution Width 18.9 % (11.5-14.5); Red Blood Cell (RBC) Count 3.96 mill/uL (4.20-5.40); Schistocytes SLIGHT = 2-5 cells (100X) (0-1/hpf); White Blood Cell (WBC) Count 14.8 thou/uL (4.8-10.8)
--- NOTE | 2018-12-29 08:22 | PRG ---
DATE OF SERVICE: 12/29/2018 35 minutes critical care time. SUBJECTIVE: Ms. Rodriguez remains intubated on mechanical ventilation. She will wake up and follow some commands including nodding yes/no to questions squeezing hands and moving toes. She cannot lift her head off the bed. OBJECTIVE: VITAL SIGNS: Her temperature is 99.5, pulse is 82, blood pressure 107/44. Her total intake for the last 24 hours was 2443 mL. Her total output was 1861 mL and it looks like all of that was through urine. HEENT: Remarkable for periorbital edema. NECK: No JVD. LUNGS: Fairly clear without wheezing or rhonchi. CARDIOVASCULAR: S1, S2. Regular. ABDOMEN: Soft, obese, nontender. EXTREMITIES: No clubbing, cyanosis, or edema. LABORATORY DATA: White blood cell count 14.8, hemoglobin 9.4, hematocrit 31.3, and platelet count 156. INR 3.3. ABG not performed this morning yet. Sodium 139, potassium 4.9, chloride 102, CO2 24, BUN 134, creatinine 3.4, and glucose 294. ASSESSMENT: 1. Acute respiratory failure requiring mechanical ventilation. 2. Chronic obstructive pulmonary disease with exacerbation. 3. Acute kidney injury. 4. Acute on chronic diastolic heart failure. 5. Obstructive sleep apnea. 6. Possible anoxic brain injury. 7. History of deep venous thrombosis requiring anticoagulation, currently over-anticoagulated. PLAN: 1. Continue to hold the Coumadin. 2. Placed on spontaneous breathing mode. 3. I need her strength somewhat better before considering extubation. 4. Repeat ABG and chest x-ray tomorrow. 5. Consider further dialysis. Job ID: [id number]
[2018-12-29] MEDS: Famotidine/PF 20 mg/2ml Vial SLOW IVP SCH (08:33)
[2018-12-29] MEDS: Furosemide 40 MG/4 ML VIAL SLOW IVP SCH (08:33)
[2018-12-29] MEDS: methylPREDNISolone Sod Succ 40 MG VIAL IVP SCH ×2 (08:33→21:30)
[2018-12-29] MEDS: Cefepime 1 GM in Sodium Chloride 0.9% 100 ML IVPB SCH (08:33)
[2018-12-29] MEDS: Lorazepam 2 MG/ML VIAL SLOW IVP PRN (10:32)
[2018-12-29] MEDS ORDERED: Dextrose 5% in Water 1,000 ML IV PRN (11:24)
[2018-12-29] MEDS ORDERED: Dextrose 50% Abboject 50 ML SYRINGE SLOW IVP PRN (11:24)
--- NOTE | 2018-12-29 11:42 | OP ---
DATE OF PROCEDURE: 12/26/2018 PREOPERATIVE DIAGNOSES: 1. Acute kidney injury superimposed on chronic kidney disease. 2. Morbid obesity. 3. Hypertension. 4. Sleep apnea. 5. Diastolic dysfunction. 6. Congestive heart failure. 7. In need of acute dialysis access. POSTOPERATIVE DIAGNOSES: 1. Acute kidney injury superimposed on chronic kidney disease. 2. Morbid obesity. 3. Hypertension. 4. Sleep apnea. 5. Diastolic dysfunction. 6. Congestive heart failure. 7. In need of acute dialysis access. PROCEDURE PERFORMED: Right femoral vein Trialysis catheter. ANESTHESIA: 1% Xylocaine. DESCRIPTION OF PROCEDURE: With the patient at bedside, right groin was clipped of hair, prepared with ChloraPrep, and draped in routine fashion. Using Seldinger technique, a Trialysis catheter was placed, removed the J-wire, secured it with 3-0 nylon suture. Each port was aspirated of blood, flushed with heparinized saline solution. The patient tolerated the procedure well. Job ID: [id number]
--- NOTE | 2018-12-29 12:41 | PDOC.PN ---
- Subjective Encounter Start Date: 12/29/18 Encounter Start Time: 12:39 Patient seen and examined, no issues overnight, no family at bedside. - Objective Resuscitation Status - Order Detail: 12/24/18 02:19 Resuscitation Status Routine Resuscitation Status: FULL: Full Resuscitation Vital Signs & Weight: Vital Signs (12 hours) Temp Pulse Resp Pulse Ox 12/29/18 12:00 24 H 12/29/18 10:20 140 H 12/29/18 10:09 23 H 12/29/18 07:47 23 H 87 L 12/29/18 07:27 88 12/29/18 07:15 99.5 F 12/29/18 06:00 99.4 F 12/29/18 02:52 68 12/29/18 02:00 98.6 F Weight Admit Weight 261 lb 14.546 oz Weight 261 lb 14.546 oz Most Recent Monitor Data Heart Rate from ECG 97 NIBP 120/82 NIBP BP-Mean 94 Respiration from ECG 24 SpO2 93 I&O: 12/28/18 12/29/18 12/30/18 06:59 06:59 06:59 Intake Total 2085.2 2443.6 150 Output Total 1530 1861 1270 Balance 555.2 582.6 -1120 Result Diagrams: 12/29/18 04:07 12/29/18 04:07 Additional Labs: Accuchecks 12/28/18 12/28/18 16:38 10:21 POC Glucose 226 H 209 H Phys Exam - Physical Examination Constitutional: NAD sedated HEENT: PERRLA +ET tube Neck: no nodes, no JVD, supple Respiratory: no wheezing, no rales, no rhonchi Cardiovascular: RRR, no significant murmur, no rub Gastrointestinal: soft, non-tender, no distention, positive bowel sounds Musculoskeletal: pulses present, edema present Dx/Plan (1) Acute kidney injury superimposed on CKD Code(s): N17.9 - ACUTE KIDNEY FAILURE, UNSPECIFIED; N18.9 - CHRONIC KIDNEY DISEASE, UNSPECIFIED Status: Acute Comment: s/p HD, serial creatinine monitoring (2) COPD exacerbation Code(s): J44.1 - CHRONIC OBSTRUCTIVE PULMONARY DISEASE W (ACUTE) EXACERBATION Status: Acute Comment: Continue Duonebs, Solumedrol, mech ventilation, Cefepime (3) Acute diastolic CHF (congestive heart failure) Code(s): I50.31 - ACUTE DIASTOLIC (CONGESTIVE) HEART FAILURE Status: Acute Comment: Patient continuing to diurese well. Creatinine stable. (4) DM type 2 (diabetes mellitus, type 2) Status: Chronic Qualifiers: Diabetes mellitus group home insulin use: with group home use Diabetes mellitus complication status: with kidney complications Diabetes mellitus complication detail: with chronic kidney disease Chronic kidney disease stage : stage 3 (moderate) Qualified Code(s): E11.22 - Type 2 diabetes mellitus with diabetic chronic kidney disease; N18.3 - Chronic kidney disease, stage 3 ( moderate); Z79.4 - [facility] (current) use of insulin Comment: ISS, accuchecks, ADA, labile due to Solumedrol (5) HLD (hyperlipidemia) Code(s): E78.5 - HYPERLIPIDEMIA, UNSPECIFIED Status: Chronic (6) Hypertension Code(s): I10 - ESSENTIAL (PRIMARY) HYPERTENSION Status: Chronic Comment: Spiking today. Will increase meds by adding small dose of hydralazine TID. (7) Morbid obesity Code(s): E66.01 - MORBID (SEVERE) OBESITY DUE TO EXCESS CALORIES Status: Chronic Comment: BMI = 48kg/m2 - Plan * SBT per pulmonary team * renal also following for dialysis as needed for volume control * no other changes in plan of care for now * no family at bedside, call placed again to Sophia Rodriguez at [phone] no answer * overall prognosis guarded-poor
[2018-12-29 12:52] LABS: Base Excess (BEa) -0.4 mEq/L (-2.0 to +3.0); CO2 Tension 38.3 mmHg (35.0-45.0); Calcium, Ionized 1.19 mmol/L (1.12-1.30); Carboxyhemoglobin (COHb) 1.1 gm% (0.0-3.0); Hemoglobin (Hb) 10.7 g/dL (12.0-16.0); Potassium - ABG Lab 4.78 mmol/L (3.70-5.30); pH, Arterial 7.42 (7.35-7.45)
[2018-12-29 12:55] LABS: O2 Tension (PaO2) 45.6 mmHg (80.0-100.0); Puncture Site RRA
[2018-12-29 12:56] LABS: ALV-art Gradient 263.025 (0-20)
--- NOTE | 2018-12-29 14:49 | PRG ---
DATE OF SERVICE: 12/29/2018 SUBJECTIVE: Patient was seen and examined in ICU, intubated and overnight events noted. Patient denies any shortness of breath or chest pain or palpitation. No history of nausea or vomiting or diarrhea or fever or chills or cramps. OBJECTIVE: GENERAL: This is a well built female, in no apparent distress. VITAL SIGNS: Temperature 99.5. Heart rate 88. Respiratory rate 19. Blood pressure 124/80. HEENT: Intubated. Atraumatic, normocephalic. CARDIOVASCULAR: S1, S2 heard. RESPIRATORY: Clear to auscultation. GASTROINTESTINAL: Abdomen is soft. MUSCULOSKELETAL: 1+ edema. No tenderness. DERMATOLOGIC: no rash NEUROLOGIC: Intubated. LABORATORY DATA: BUN 134 and creatinine is 3.4. Hemoglobin 9.4. ASSESSMENT AND PLAN: 1. Acute kidney injury on chronic kidney disease stage 3 with a creatinine improvement, rising BUN. 2. Azotemia, most likely from steroids. We will follow. 3. The patient is making better amount of urine now and I will follow. We will hold dialysis for now. 4. Edema. Limit fluid intake. 5. Sepsis. 6. Acute hypoxic respiratory failure. We will follow. Job ID: [id number] MTDD
[2018-12-30] MEDS: HumaLOG 300 UNITS/3 ML VIAL SC PRN ×4 (04:15→22:06)
[2018-12-30 05:55] LABS: INR-International Normal Ratio 2.7
[2018-12-30 06:17] LABS: Anion Gap 16 mmol/L (10-20); Calc. Creatinine Clearance 44 mL/min (70-130); Calcium 9.3 mg/dL (7.8-10.44); Carbon Dioxide 26 mmol/L (22-29); Chloride 106 mmol/L (98-107); Estimated GFR-MDRD 22; Glucose 299 mg/dL (70-105); Potassium 4.9 mmol/L (3.5-5.1); Sodium 143 mmol/L (136-145)
[2018-12-30 06:29] LABS: BUN (Urea Nitrogen) 139 mg/dL (9.8-20.1)
[2018-12-30 06:43] LABS: #Lymphocytes 0.4 thou/uL (1.20-3.40); #Monocytes 0.8 thou/uL (0.11-0.59); #Neutrophils 17.7 thou/uL (1.40-6.50); %Basophils 0.1 % (0.0-1.0); %Eosinophils 0.1 % (0.0-10.0); %Monocytes 4.4 % (0.0-10.0); %Neutrophils 93.5 % (42.0-75.0); Anisocytosis SLIGHT = 6-15 cells (100X) (0-5/hpf); Hemoglobin 9.6 g/dL (12.0-16.0); MDiff Complete? YES; Mean Corpuscular HGB CONC 29.6 g/dL (32.0-36.0); Mean Corpuscular Hemoglobin 23.6 pg (27.0-31.0); Mean Corpuscular Volume 79.8 fL (78.0-98.0); Mean Platelet Volume 7.8 fL (7.4-10.4); Platelet Count 158 thou/uL (130-400); Platelet Morphology Comment Appears Adequate; RBC Distribution Width 18.9 % (11.5-14.5); Red Blood Cell (RBC) Count 4.06 mill/uL (4.20-5.40); Schistocytes SLIGHT = 2-5 cells (100X) (0-1/hpf); White Blood Cell (WBC) Count 18.9 thou/uL (4.8-10.8)
[2018-12-30 07:00] LABS: Actual Bicarbonate (HCO3a) 24.1 mEq/L (22-28); Base Excess (BEa) 0.4 mEq/L (-2.0 to +3.0); CO2 Tension 35.1 mmHg (35.0-45.0); Calcium, Ionized 1.23 mmol/L (1.12-1.30); Carboxyhemoglobin (COHb) 1.5 gm% (0.0-3.0); Hemoglobin (Hb) 10.6 g/dL (12.0-16.0); Potassium - ABG Lab 4.72 mmol/L (3.70-5.30); pH, Arterial 7.45 (7.35-7.45)
[2018-12-30 07:03] LABS: Puncture Site RRA
[2018-12-30 07:04] LABS: ALV-art Gradient 229.975 (0-20)
[2018-12-30] MEDS ORDERED: methylPREDNISolone Sod Succ 40 MG VIAL IVP SCH (07:52)
[2018-12-30] MEDS ORDERED: Bacteriostatic Water 30 ML VIAL FS PRN (07:59)
[2018-12-30] MEDS: Cefepime 1 GM in Sodium Chloride 0.9% 100 ML IVPB SCH (08:24)
[2018-12-30] MEDS: Furosemide 40 MG/4 ML VIAL SLOW IVP SCH (08:25)
[2018-12-30] MEDS: methylPREDNISolone Sod Succ 40 MG VIAL IVP SCH ×2 (08:26→21:46)
[2018-12-30] MEDS: Famotidine/PF 20 mg/2ml Vial SLOW IVP SCH (08:26)
--- NOTE | 2018-12-30 09:03 | RAD ---
CHEST ONE VIEW: Indication: History of pneumonia. Comparison: 12-27-18 FINDINGS: There is cardiomegaly and pulmonary vascular congestion and bilateral perihilar edema. NG tube and ga stric catheter unchanged. There is a small left and tiny right pleural effusion. No pneumothorax is e vident. IMPRESSION: 1. Worsening pulmonary vascular congestion. 2. Bilateral pleural effusions, left greater than right. 3. No pneumothorax. Stable tubes. POS: BH
--- NOTE | 2018-12-30 10:15 | PRG ---
DATE OF SERVICE: 12/30/2018 A 45 minutes of critical care time. SUBJECTIVE: The patient remains intubated on mechanical ventilation. I tried to wean her yesterday, but she developed respiratory distress about an hour after I changed the ventilator setting. OBJECTIVE: VITAL SIGNS: Today, her temperature is 99.9 with T-max of 100.2, pulse 121, blood pressure 150/94. A 24-hour intake 3533 and output 3565. HEENT: Unremarkable. NECK: No JVD. LUNGS: Coarse breath sounds. CARDIAC: S1 and S2. Regular. ABDOMEN: Soft, obese, and nontender. EXTREMITIES: Edematous throughout. NEUROLOGIC: The patient can move all 4 extremities, but she cannot lift her head off the pillow. LABORATORY DATA: Sodium 143, potassium 4.9, chloride 106, CO2 of 26, BUN 139, creatinine 2.7, and glucose 299. White blood cell count 18.9, hematocrit 33.4, and platelet count 158. INR 1.7. ABG; pH of 7.45, pCO2 of 35, and pO2 of 47. ASSESSMENT: 1. Acute respiratory failure requiring mechanical ventilation. 2. Acute kidney injury. 3. Fluid overloaded. 4. Underlying obstructive sleep apnea. 5. Deep venous thrombosis requiring anticoagulation. PLAN: 1. I do not think she is weanable at this time. I am hoping that if she diuresis more and eliminate fluids, that her oxygenation will improve to the point, where we can wean. 2. I have adjusted the ventilator settings. 3. Decrease steroids. 4. Continue Lasix. Job ID: [id number]
--- NOTE | 2018-12-30 10:41 | PRG ---
DATE OF SERVICE: 12/30/2018 SUBJECTIVE: The patient was seen and examined in ICU, remains intubated and nonverbal. She is making urine. I talked with bedside nurse. No family members at the bedside. OBJECTIVE: GENERAL: Morbidly obese female, seen in ICU, intubated. VITAL SIGNS: Temperature 98.7, pulse 91, respiratory rate 23, blood pressure 131/86. HEENT: Intubated. CV: S1 and S2 heard. RESPIRATORY: Clear anteriorly. GI: Abdomen is obese. MUSCULOSKELETAL: 1+ edema. DERMATOLOGIC: No skin rash. NEUROLOGIC: Intubated. PSYCHIATRIC: Not assessed. LABORATORY DATA: Potassium 4.9, BUN is 139, creatinine is 2.7. ASSESSMENT AND PLAN: 1. Acute kidney injury on chronic kidney disease stage 3 with improvement in urine output and creatinine, but BUN is rising. 2. Azotemia with rising BUN, most likely from steroids and possibly from diuretics. Agree with reducing the steroid dose and monitor. 3. Edema, on Lasix. 4. Sepsis. 5. Acute hypoxic respiratory failure. 6. History of hypertension. 7. Morbid obesity. Overall, renal function seems to be better. No acute indication for dialysis. We will hold dialysis and agree with adjusting the steroid dose for now. Continue critical care support. We will follow. Job ID: [id number]
[2018-12-30] MEDS: fentaNYL Citrate/PF 2,000 MCG in Sodium Chloride 0.9% 60 ML IV SCH (10:56)
--- NOTE | 2018-12-30 12:23 | PDOC.PN ---
- Subjective Encounter Start Date: 12/30/18 Encounter Start Time: 12:22 Patient seen and examined, family at bedside, all questions answered, no new issues overnight. - Objective Resuscitation Status - Order Detail: 12/24/18 02:19 Resuscitation Status Routine Resuscitation Status: FULL: Full Resuscitation Vital Signs & Weight: Vital Signs (12 hours) Temp Pulse Resp BP Pulse Ox 12/30/18 12:00 25 H 12/30/18 10:14 133 H 12/30/18 10:00 12 12/30/18 08:00 24 H 96 12/30/18 07:06 123 H 12/30/18 07:00 98.7 F 12/30/18 06:00 24 H 12/30/18 04:00 20 12/30/18 02:33 74 120/75 12/30/18 02:00 22 H Weight Admit Weight 261 lb 14.546 oz Weight 261 lb 14.546 oz Most Recent Monitor Data Heart Rate from ECG 84 NIBP 119/80 NIBP BP-Mean 93 Respiration from ECG 21 SpO2 96 I&O: 12/29/18 12/30/18 12/31/18 06:59 06:59 06:59 Intake Total 2443.6 2533 30 Output Total 1861 3565 155 Balance 582.6 -1032 -125 Result Diagrams: 12/30/18 00:52 12/30/18 00:52 Additional Labs: Accuchecks 12/29/18 12/29/18 12/29/18 22:06 16:18 10:08 POC Glucose 274 H 287 H 267 H 12/28/18 22:27 POC Glucose 202 H Phys Exam - Physical Examination Constitutional: NAD sedated HEENT: PERRLA intubated Neck: no nodes, no JVD Respiratory: no wheezing, no rales, no rhonchi Cardiovascular: RRR, no significant murmur, no rub Gastrointestinal: soft, non-tender, no distention Musculoskeletal: pulses present, edema present Dx/Plan (1) Acute kidney injury superimposed on CKD Code(s): N17.9 - ACUTE KIDNEY FAILURE, UNSPECIFIED; N18.9 - CHRONIC KIDNEY DISEASE, UNSPECIFIED Status: Acute Comment: s/p HD, serial creatinine monitoring (2) COPD exacerbation Code(s): J44.1 - CHRONIC OBSTRUCTIVE PULMONARY DISEASE W (ACUTE) EXACERBATION Status: Acute Comment: Continue Duonebs, Solumedrol, mech ventilation, Cefepime (3) Acute diastolic CHF (congestive heart failure) Code(s): I50.31 - ACUTE DIASTOLIC (CONGESTIVE) HEART FAILURE Status: Acute Comment: Patient continuing to diurese well. Creatinine stable. (4) DM type 2 (diabetes mellitus, type 2) Status: Chronic Qualifiers: Diabetes mellitus residential insulin use: with residential use Diabetes mellitus complication status: with kidney complications Diabetes mellitus complication detail: with chronic kidney disease Chronic kidney disease stage : stage 3 (moderate) Qualified Code(s): E11.22 - Type 2 diabetes mellitus with diabetic chronic kidney disease; N18.3 - Chronic kidney disease, stage 3 ( moderate); Z79.4 - care home (current) use of insulin Comment: ISS, accuchecks, ADA, labile due to Solumedrol (5) HLD (hyperlipidemia) Code(s): E78.5 - HYPERLIPIDEMIA, UNSPECIFIED Status: Chronic (6) Hypertension Code(s): I10 - ESSENTIAL (PRIMARY) HYPERTENSION Status: Chronic Comment: Spiking today. Will increase meds by adding small dose of hydralazine TID. (7) Morbid obesity Code(s): E66.01 - MORBID (SEVERE) OBESITY DUE TO EXCESS CALORIES Status: Chronic Comment: BMI = 48kg/m2 - Plan * renal function improving, patient self diuresing well, hopefully once she's a bit more dry she can be extubated * pulmonary following for vent management * labs slowly improving * no changes in plan of care for now * case d/w family at length, they understood and agreed with current plan
--- NOTE | 2018-12-30 12:35 | PQF ---
NIKI CORBIN ROHAN [id number] [facility]-2 [id number] CLINICAL DOCUMENTATION IMPROVEMENT CLARIFICATION FORM: ICD-10 Updated PLEASE DO AN ADDENDUM TO THE PROGRESS NOTE WITH ANY DOCUMENTATION UPDATES OR ADDITIONS AND CARRY THROUGH TO DC SUMMARY. THANK YOU. DATE: 12/30 ATTN: DR. LATRICE MEDEROS Please exercise your independent, professional judgment in responding to the clarification form. Clinical indicators are provided on the bottom of this form for your review. Please check appropriate box(es): [ x ] Sepsis due to: (Pna, UTI, gangrenous gall bladder, etc.) pneumonia___ [ ] Severe sepsis with acute organ dysfunction of: (Examples: respiratory failure, encephalopathy, acute kidney failure, other) [ ] Localized infection without sepsis [ ] Other diagnosis [ ] Unable to determine In addition, please specify: Present on Admission (POA): [ x ] Yes [ ] No [ ] Unable to determine For continuity of documentation, please document condition throughout progress notes and discharge summary. Thank You. CLINICAL INDICATORS - SIGNS / SYMPTOMS / LABS H&P (NARENDRA) 12/24: ASSMT/PLAN: 5) POSSIBLE SEPSIS, THE PT PRESENTED W/ RESPIRATORY FAILURE, W/ LEUKOCYTOSIS, TACHYCARDIA, TACHYPNEA. THE PT HAS BEEN STARTED ON ANTIBIOTICS NEPHROLOGY PN 12/25 (VONNIE): BONITA WITH CKD MOST LIKELY ATN BECAUSE OF SEPSIS NEPHROLOGY PN 12/29 & (SHERLYN): ASSMT/PLAN: 5) SEPSIS WBC: 21.8 (ADMIT, 12/24) HR: 82-135 (ER REPORT) RR: 29 (ER REPORT ) RISKS: B BRONCHOPNEUMONIA (H&P) ACUTE RESPIRATORY FAILURE W/INTUBATION (ER REPORT) COPD EXACERBATION (H&P) BONITA (H&P) TREATMENT: CCU FOR VENT MANAGEMENT (12/24 - PRESENT) IV ANTIBIOTICS (CEFEPIME 12/24 - PRESENT; VANCOMYCIN 12/24; ZOSYN & LEVAQUIN 12/24) NEPHROLOGY CONSULT PULMONOLOGY CONSULT THANK YOU! Yuko (This form is maintained as a part of the permanent medical record) 2014 [employer]. All Rights Reserved Yuko Franz RN, BSN [email or web address] Office: [phone] [facility]
[2018-12-30] MEDS: Warfarin Sodium 5 MG TAB PO SCH (17:47)
[2018-12-31] MEDS: HumaLOG 300 UNITS/3 ML VIAL SC PRN ×4 (04:12→22:16)
[2018-12-31 04:30] LABS: INR-International Normal Ratio 2.2; Prothrombin Time 24.5 SEC (12.0-14.7)
[2018-12-31 04:44] LABS: Anion Gap 14 mmol/L (10-20); Calc. Creatinine Clearance 50 mL/min (70-130); Calcium 9.6 mg/dL (7.8-10.44); Carbon Dioxide 28 mmol/L (22-29); Chloride 112 mmol/L (98-107); Estimated GFR-MDRD 26; Glucose 281 mg/dL (70-105); Potassium 5.2 mmol/L (3.5-5.1); Sodium 149 mmol/L (136-145)
[2018-12-31 04:54] LABS: #Lymphocytes 0.5 thou/uL (1.20-3.40); #Monocytes 0.8 thou/uL (0.11-0.59); %Eosinophils 0.2 % (0.0-10.0); %Lymphocytes 2.5 % (21.0-51.0); %Monocytes 4.1 % (0.0-10.0); %Neutrophils 93.2 % (42.0-75.0); Anisocytosis SLIGHT = 6-15 cells (100X) (0-5/hpf); Elliptocytes SLIGHT = 2-5 cells (100X) (0-1/hpf); Hemoglobin 9.7 g/dL (12.0-16.0); MDiff Complete? YES; Mean Corpuscular HGB CONC 30.2 g/dL (32.0-36.0); Mean Corpuscular Hemoglobin 24.2 pg (27.0-31.0); Mean Corpuscular Volume 80.1 fL (78.0-98.0); Mean Platelet Volume 10.6 fL (7.4-10.4); Platelet Count 148 thou/uL (130-400); Platelet Morphology Comment Appears Adequate; RBC Distribution Width 19.1 % (11.5-14.5); Red Blood Cell (RBC) Count 4.01 mill/uL (4.20-5.40); White Blood Cell (WBC) Count 18.3 thou/uL (4.8-10.8)
[2018-12-31 04:56] LABS: BUN (Urea Nitrogen) 138 mg/dL (9.8-20.1)
[2018-12-31 06:36] LABS: Actual Bicarbonate (HCO3a) 26.5 mEq/L (22-28); Base Excess (BEa) 2.5 mEq/L (-2.0 to +3.0); CO2 Tension 38.6 mmHg (35.0-45.0); Calcium, Ionized 1.24 mmol/L (1.12-1.30); Carboxyhemoglobin (COHb) 1.5 gm% (0.0-3.0); Hemoglobin (Hb) 10.7 g/dL (12.0-16.0); Potassium - ABG Lab 5.04 mmol/L (3.70-5.30); pH, Arterial 7.46 (7.35-7.45)
[2018-12-31 06:39] LABS: O2 Tension (PaO2) 50.2 mmHg (80.0-100.0)
[2018-12-31 06:40] LABS: Puncture Site RRA
[2018-12-31 06:41] LABS: Peep/CPAP 7.5 cmH2O
--- NOTE | 2018-12-31 08:11 | PRG ---
DATE OF SERVICE: 12/31/2018 35 minutes of critical care time. SUBJECTIVE: The patient remains intubated on mechanical ventilation. There have been no acute changes overnight. OBJECTIVE: VITAL SIGNS: Temperature is 99.0, pulse 73, blood pressure 160/73, O2 saturation 95%. She is currently on Precedex drip and a fentanyl drip. Intake for 24 hours was 1993 output 3175. HEENT: Unremarkable. NECK: No JVD. LUNGS: Diminished breath sounds anteriorly bilaterally. CARDIOVASCULAR: S1, S2. Regular. ABDOMEN: Soft, obese, nontender, nondistended. EXTREMITIES: Edematous throughout. LABORATORY DATA: PH 7.46, pCO2 of 38, pO2 of 50, that is on SIMV rate 12 with pressure-control ventilation, PEEP of 7.5, FiO2 50%. White blood cell count 18.3, hemoglobin 9.7, hematocrit 32.2, platelet count 148. INR 2.2. Sodium 149, potassium 5.2, chloride 112, CO2 28, BUN 138, creatinine 3.5, glucose 281. ASSESSMENT: 1. Acute respiratory failure, requiring mechanical ventilation. 2. Chronic obstructive pulmonary disease with exacerbation. 3. Pulmonary hypertension with cor pulmonale. 4. Obstructive sleep apnea. 5. History of deep venous thrombosis. 6. Hyperglycemia. PLAN: 1. I will try her on spontaneous breathing, but I am not confident at all that she can be extubated. 2. For her hypernatremia, I am going to hold her furosemide today. 3. She is continuing Coumadin for her history of DVT. 4. If sodium continues to increase tomorrow, may consider adding free water to tube feeds. 5. Need to increase insulin coverage given profound hyperglycemia. Job ID: [id number]
--- NOTE | 2018-12-31 08:28 | RAD ---
CHEST 1 VIEW: Date: 12/31/18 INDICATION: History of pneumonia. COMPARISON: Prior study dated 12/30/18. FINDINGS: Perihilar opacities persist. Cardiomegaly is similar appearing. Pulmonary vascular congestion stable. ET tube and gastric catheter are unchanged. No pneumothorax evident. IMPRESSION: Stable exam. POS: TPC
[2018-12-31] MEDS: Famotidine/PF 20 mg/2ml Vial SLOW IVP SCH (08:45)
[2018-12-31] MEDS: methylPREDNISolone Sod Succ 40 MG VIAL IVP SCH ×2 (08:45→20:32)
[2018-12-31] MEDS: NPH, Human Insulin Isophane 300 UNIT/3 ML VIAL SC SCH ×2 (08:46→20:33)
--- NOTE | 2018-12-31 11:17 | PRG ---
DATE OF SERVICE: 12/31/2018 SUBJECTIVE: The patient was seen and examined at ICU, remains intubated, but making urine. OBJECTIVE: GENERAL: This is an obese female, in no apparent distress, intubated. VITAL SIGNS: Temperature 99.0, pulse 80, respiratory rate 24, and blood pressure 127/77. HEENT: Intubated. CVS: S1 and S2 heard. RESPIRATORY: Clear. GI: Abdomen is soft. MUSCULOSKELETAL: 1+ edema. DERMATOLOGIC: No skin rash. NEUROLOGIC: Intubated. LABORATORY DATA: Hemoglobin is 9.7. Potassium is 5.2, BUN is 138, creatinine is 2.3. ASSESSMENT AND PLAN: 1. Acute kidney injury on chronic kidney stage 3 with improvement in creatinine and BUN is also stabilizing. Agree with the reduced dose of steroids. 2. Azotemia, stable. 3. Edema. 4. Sepsis. 5. Acute hypoxic respiratory failure, currently intubated. 6. History of hypertension. 7. Morbid obesity. 8. Mild hyperkalemia, most likely from hyperglycemia. 9. Hyperglycemia. 10. No acute indication for dialysis. 11. Anemia of chronic disease. 12. No acute indication for dialysis. Plan is to monitor closely. Avoid nephrotoxins. Job ID: [id number]
--- NOTE | 2018-12-31 11:43 | PDOC.PN ---
- Subjective Encounter Start Date: 12/31/18 Encounter Start Time: 11:35 Patient seen and examined, no new changes in the last 24 hours, sister at bedside, all questions answered. - Objective Resuscitation Status - Order Detail: 12/24/18 02:19 Resuscitation Status Routine Resuscitation Status: FULL: Full Resuscitation Vital Signs & Weight: Vital Signs (12 hours) Temp Pulse Resp BP Pulse Ox 12/31/18 10:24 80 126/77 12/31/18 10:00 24 H 12/31/18 08:00 25 H 12/31/18 06:25 74 106/73 12/31/18 06:00 22 H 12/31/18 04:00 99.0 F 22 H 12/31/18 02:15 83 23 H 94 L 12/31/18 02:00 22 H 12/31/18 00:00 99.1 F 22 H Weight Admit Weight 261 lb 14.546 oz Weight 261 lb 14.546 oz Most Recent Monitor Data Heart Rate from ECG 94 NIBP 132/86 NIBP BP-Mean 101 Respiration from ECG 26 SpO2 92 I&O: 12/30/18 12/31/18 01/01/19 06:59 06:59 06:59 Intake Total 2533 1993.4 120 Output Total 3565 3175 725 Balance -1032 -1181.6 -605 Result Diagrams: 12/31/18 04:00 12/31/18 04:00 Phys Exam - Physical Examination Constitutional: NAD sedated HEENT: PERRLA intubated Neck: no nodes, no JVD, supple Respiratory: no wheezing, no rales, no rhonchi Cardiovascular: RRR, no significant murmur, no rub Gastrointestinal: soft, non-tender, no distention, positive bowel sounds Musculoskeletal: pulses present, edema present Dx/Plan (1) Acute kidney injury superimposed on CKD Code(s): N17.9 - ACUTE KIDNEY FAILURE, UNSPECIFIED; N18.9 - CHRONIC KIDNEY DISEASE, UNSPECIFIED Status: Acute Comment: s/p HD, serial creatinine monitoring (2) COPD exacerbation Code(s): J44.1 - CHRONIC OBSTRUCTIVE PULMONARY DISEASE W (ACUTE) EXACERBATION Status: Acute Comment: Continue Duonebs, Solumedrol, mech ventilation, Cefepime (3) Acute diastolic CHF (congestive heart failure) Code(s): I50.31 - ACUTE DIASTOLIC (CONGESTIVE) HEART FAILURE Status: Acute Comment: Patient continuing to diurese well. Creatinine stable. (4) DM type 2 (diabetes mellitus, type 2) Status: Chronic Qualifiers: Diabetes mellitus intermediate project manager insulin use: with nursing home use Diabetes mellitus complication status: with kidney complications Diabetes mellitus complication detail: with chronic kidney disease Chronic kidney disease stage : stage 3 (moderate) Qualified Code(s): E11.22 - Type 2 diabetes mellitus with diabetic chronic kidney disease; N18.3 - Chronic kidney disease, stage 3 ( moderate); Z79.4 - detention (current) use of insulin Comment: ISS, accuchecks, ADA, labile due to Solumedrol (5) HLD (hyperlipidemia) Code(s): E78.5 - HYPERLIPIDEMIA, UNSPECIFIED Status: Chronic (6) Hypertension Code(s): I10 - ESSENTIAL (PRIMARY) HYPERTENSION Status: Chronic Comment: Spiking today. Will increase meds by adding small dose of hydralazine TID. (7) Morbid obesity Code(s): E66.01 - MORBID (SEVERE) OBESITY DUE TO EXCESS CALORIES Status: Chronic Comment: BMI = 48kg/m2 - Plan * SBT being done currently, extubation unlikely, pulmonary following * Na levels elevated, patient was on diuretics, likely having post ATN diuresis , Na levels will likely go up in AM. Renal following, will start free water in AM depending on Na levels * overall prognosis is poor * continue current medical management otherwise for now, labs in AM * patient's condition was discussed with all family members, including daughter (via phone [phone]) at length, if no improvement in 24 hours, family is open to hospice care and terminal extubation, they understood and agreed with above plan
[2018-12-31] MEDS: Warfarin Sodium 5 MG TAB PO SCH ×2 (17:41→17:54)
[2019-01-01] MEDS: HumaLOG 300 UNITS/3 ML VIAL SC PRN ×2 (04:29→10:46)
[2019-01-01 04:42] LABS: #Lymphocytes 0.6 thou/uL (1.20-3.40); #Monocytes 0.8 thou/uL (0.11-0.59); #Neutrophils 12.2 thou/uL (1.40-6.50); %Eosinophils 0.2 % (0.0-10.0); %Lymphocytes 4.1 % (21.0-51.0); %Monocytes 5.6 % (0.0-10.0); %Neutrophils 90.1 % (42.0-75.0); Hemoglobin 9.8 g/dL (12.0-16.0); Mean Corpuscular HGB CONC 29.2 g/dL (32.0-36.0); Mean Corpuscular Hemoglobin 23.8 pg (27.0-31.0); Mean Corpuscular Volume 81.6 fL (78.0-98.0); Mean Platelet Volume 8.1 fL (7.4-10.4); Platelet Count 140 thou/uL (130-400); RBC Distribution Width 19.1 % (11.5-14.5); Red Blood Cell (RBC) Count 4.12 mill/uL (4.20-5.40); White Blood Cell (WBC) Count 13.6 thou/uL (4.8-10.8)
[2019-01-01 04:54] LABS: Anion Gap 15 mmol/L (10-20); Calc. Creatinine Clearance 51 mL/min (70-130); Calcium 9.5 mg/dL (7.8-10.44); Carbon Dioxide 26 mmol/L (22-29); Chloride 117 mmol/L (98-107); Estimated GFR-MDRD 27; Glucose 302 mg/dL (70-105); Potassium 5.2 mmol/L (3.5-5.1); Sodium 153 mmol/L (136-145)
[2019-01-01 05:06] LABS: BUN (Urea Nitrogen) 135 mg/dL (9.8-20.1)
[2019-01-01 06:44] LABS: Actual Bicarbonate (HCO3a) 25.2 mEq/L (22-28); Base Excess (BEa) 1.3 mEq/L (-2.0 to +3.0); Calcium, Ionized 1.28 mmol/L (1.12-1.30); Carboxyhemoglobin (COHb) 0.4 gm% (0.0-3.0); Hemoglobin (Hb) 10.6 g/dL (12.0-16.0); Potassium - ABG Lab 4.93 mmol/L (3.70-5.30); pH, Arterial 7.45 (7.35-7.45)
[2019-01-01 06:45] LABS: O2 Tension (PaO2) 55.2 mmHg (80.0-100.0); Peep/CPAP 7.5 cmH2O; Puncture Site RRA
--- NOTE | 2019-01-01 07:42 | RAD ---
PORTABLE CHEST: HISTORY: Respiratory distress. COMPARISON: Prior day's study. FINDINGS: Endotracheal and NG tubes are in satisfactory position. Heart size is enlarged. Parenchymal lung ch anges are stable. IMPRESSION: Stable exam. POS: SHA
[2019-01-01 08:42] LABS: PTT 30.8 SEC (22.9-36.1); Prothrombin Time 22.7 SEC (12.0-14.7)
[2019-01-01] MEDS: Famotidine/PF 20 mg/2ml Vial SLOW IVP SCH (08:52)
--- NOTE | 2019-01-01 08:53 | PRG ---
DATE OF SERVICE: 01/01/2019 TIME SPENT: 35 minutes of critical time. SUBJECTIVE: The patient remains intubated on mechanical ventilation. She was able to do spontaneous breathing trial for 7 or 8 hours yesterday before having to be put back on standard ventilator settings. OBJECTIVE: VITAL SIGNS: Temperature 99.7, pulse 74, blood pressure 107/77, O2 saturation 96%. Total intake 2418, output 3035. HEENT: Unremarkable. NECK: No JVD. LUNGS: Fairly clear anteriorly. CARDIAC: S1, S2. Regular. ABDOMEN: Soft, obese, nontender, and nondistended. EXTREMITIES: No edema. LABORATORY DATA: White blood cell count 13.6, hematocrit 33.6, and platelet count 140. PT and INR are pending. PH of 7.45, pCO2 of 37, pO2 of 55, and that is on pressure control ventilation with rate of 12, PEEP 7.5, FiO2 of 50%. Sodium 153, potassium 5.2, chloride 117, CO2 of 26, BUN 135, creatinine 2.3, glucose 302. ASSESSMENT: 1. Acute respiratory failure requiring mechanical ventilation. 2. Worsening hypernatremia. 3. Renal insufficiency with slowly improving BUN and creatinine. 4. Obstructive sleep apnea. 5. Underlying chronic obstructive pulmonary disease. PLAN: 1. Repeat spontaneous breathing trial today. 2. Add some free water to her tube feeds-200 mL every 4 hours. 3. Up in chair as tolerated. 4. I am going to go ahead and stop her steroids. 5. Increase the NPH insulin. Job ID: [id number]
[2019-01-01] MEDS: fentaNYL Citrate/PF 2,000 MCG in Sodium Chloride 0.9% 60 ML IV SCH (08:58)
[2019-01-01] MEDS: NPH, Human Insulin Isophane 300 UNIT/3 ML VIAL SC SCH ×2 (09:59→20:53)
--- NOTE | 2019-01-01 10:25 | OP ---
DATE OF PROCEDURE: 01/01/2019 PROCEDURE PERFORMED: Fiberoptic bronchoscopy. PREOPERATIVE DIAGNOSIS: Bleeding in endotracheal tube. POSTOPERATIVE DIAGNOSIS: Clear airways. HISTORY: This is a 58-year-old female, who is intubated. She had a large blood clot found in her ET tube last night, which was suctioned by Respiratory Therapy. This procedure was done to make sure there is no further clots in the tube that could compromise her breathing. ANESTHESIA: She was on Precedex and fentanyl during the procedure. DESCRIPTION OF PROCEDURE: A 2.0 Ambu bronchoscope was placed through an adapter into the patient's endotracheal tube and her endotracheal tube airways were surveyed bilaterally. There was no evidence of any clot. The scope was wedged in the right middle lobe and bronchoalveolar lavage was performed with approximately 50 mL of normal saline and sent for culture. She tolerated the procedure well. Job ID: [id number]
--- NOTE | 2019-01-01 11:22 | PDOC.PN ---
- Subjective Encounter Start Date: 01/01/19 Encounter Start Time: 11:21 Patient seen and examined, nurse informed me overnight she had some endotracheal bleeding, had a bronchoscopy done this AM, currently no bleeding issues. Family at bedside, all questions answered. - Objective Resuscitation Status - Order Detail: 12/24/18 02:19 Resuscitation Status Routine Resuscitation Status: FULL: Full Resuscitation Vital Signs & Weight: Vital Signs (12 hours) Pulse Resp Pulse Ox 01/01/19 10:49 79 01/01/19 10:00 23 H 01/01/19 08:00 20 01/01/19 06:35 68 01/01/19 06:00 22 H 01/01/19 04:00 22 H 92 L 01/01/19 02:30 74 22 H 92 L 01/01/19 02:00 22 H 12/31/18 23:53 20 Weight Admit Weight 261 lb 14.546 oz Weight 261 lb 14.546 oz Most Recent Monitor Data Heart Rate from ECG 76 NIBP 105/67 NIBP BP-Mean 79 Respiration from ECG 23 SpO2 92 I&O: 12/31/18 01/01/19 01/02/19 06:59 06:59 06:59 Intake Total 1993.4 2418.6 230 Output Total 3175 3035 600 Balance -1181.6 -616.4 -370 Result Diagrams: 01/01/19 04:20 01/01/19 04:20 Additional Labs: Accuchecks 12/31/18 12/31/18 12/31/18 22:14 18:01 11:36 POC Glucose 240 H 284 H 277 H 12/31/18 12/30/18 12/30/18 04:05 22:05 17:08 POC Glucose 261 H 207 H 328 H 12/30/18 12/30/18 09:25 04:12 POC Glucose 299 H 278 H Phys Exam - Physical Examination Constitutional: NAD sedated HEENT: PERRLA intubated Neck: no nodes, no JVD Respiratory: no wheezing, no rales, no rhonchi Cardiovascular: RRR, no significant murmur, no rub Gastrointestinal: soft, non-tender, no distention, positive bowel sounds Musculoskeletal: pulses present, edema present Dx/Plan (1) Acute kidney injury superimposed on CKD Code(s): N17.9 - ACUTE KIDNEY FAILURE, UNSPECIFIED; N18.9 - CHRONIC KIDNEY DISEASE, UNSPECIFIED Status: Acute Comment: s/p HD, serial creatinine monitoring (2) COPD exacerbation Code(s): J44.1 - CHRONIC OBSTRUCTIVE PULMONARY DISEASE W (ACUTE) EXACERBATION Status: Acute Comment: Continue Duonebs, Solumedrol, mech ventilation, Cefepime (3) Acute diastolic CHF (congestive heart failure) Code(s): I50.31 - ACUTE DIASTOLIC (CONGESTIVE) HEART FAILURE Status: Acute Comment: Patient continuing to diurese well. Creatinine stable. (4) DM type 2 (diabetes mellitus, type 2) Status: Chronic Qualifiers: Diabetes mellitus jail insulin use: with jail use Diabetes mellitus complication status: with kidney complications Diabetes mellitus complication detail: with chronic kidney disease Chronic kidney disease stage : stage 3 (moderate) Qualified Code(s): E11.22 - Type 2 diabetes mellitus with diabetic chronic kidney disease; N18.3 - Chronic kidney disease, stage 3 ( moderate); Z79.4 - manager long term care (current) use of insulin Comment: ISS, accuchecks, ADA, labile due to Solumedrol (5) HLD (hyperlipidemia) Code(s): E78.5 - HYPERLIPIDEMIA, UNSPECIFIED Status: Chronic (6) Hypertension Code(s): I10 - ESSENTIAL (PRIMARY) HYPERTENSION Status: Chronic Comment: Spiking today. Will increase meds by adding small dose of hydralazine TID. (7) Morbid obesity Code(s): E66.01 - MORBID (SEVERE) OBESITY DUE TO EXCESS CALORIES Status: Chronic Comment: BMI = 48kg/m2 - Plan * I was told by nurse that the pulmonary team may attempt extubation in AM IF patient tolerates and is doing well, she has been unextubateable for now, SBT being done daily, pulmonary to manage * post ATN diuresis, Na elevated as expected due to free water loss, free water replacements have been added already, appreciate pulmonary input, will monitor Na levels * sedation low levels, patient responding to verbal stimuli with eye opening, not following commands for me yet * vitals stable * cont current plan of care * case and plan d/w patient's family at bedside at length, will go on a day to day basis for now, they understand and agree with this plan.
--- NOTE | 2019-01-01 16:58 | PRG ---
DATE OF SERVICE: SUBJECTIVE: Patient was seen and examined at bedside and overnight events noted. Patient denies any shortness of breath or chest pain or palpitation. No history of nausea or vomiting or diarrhea or fever or chills or cramps. OBJECTIVE: GENERAL: This is a well-built female, in no apparent distress. VITAL SIGNS: Temperature 99. Heart rate 81. Respiratory rate . Blood pressure 140/98. HEENT: Intubated. CARDIOVASCULAR: S1, S2 heard. RESPIRATORY: Clear. GASTROINTESTINAL: Abdomen is soft. MUSCULOSKELETAL: No tenderness. DERMATOLOGIC: No skin rash. NEUROLOGIC: Awake. LABORATORY DATA: Potassium is 5.2, BUN is 133, creatinine is 2.2. ASSESSMENT AND PLAN: 1. Acute kidney injury on chronic kidney disease stage 3. Creatinine is better. 2. Acute hypoxic respiratory failure. 3. History of hypertension. 4. Morbid obesity. 5. No acute indication for dialysis. We will continue to follow. Job ID: [id number]
[2019-01-01] MEDS: Warfarin Sodium 5 MG TAB PO SCH (17:40)
[2019-01-02 05:47] LABS: #Eosinphils 0.2 thou/uL (0.0-0.7); #Lymphocytes 1.2 thou/uL (1.20-3.40); #Monocytes 1.2 thou/uL (0.11-0.59); #Neutrophils 15.1 thou/uL (1.40-6.50); %Lymphocytes 6.9 % (21.0-51.0); %Monocytes 6.6 % (0.0-10.0); %Neutrophils 85.6 % (42.0-75.0); Hemoglobin 10.3 g/dL (12.0-16.0); Mean Corpuscular HGB CONC 29.6 g/dL (32.0-36.0); Mean Corpuscular Hemoglobin 23.9 pg (27.0-31.0); Mean Corpuscular Volume 80.5 fL (78.0-98.0); Platelet Count 172 thou/uL (130-400); RBC Distribution Width 20.4 % (11.5-14.5); White Blood Cell (WBC) Count 17.7 thou/uL (4.8-10.8)
[2019-01-02 05:49] LABS: PTT 30.8 SEC (22.9-36.1); Prothrombin Time 22.3 SEC (12.0-14.7)
[2019-01-02 06:05] LABS: Anion Gap 12 mmol/L (10-20); Calc. Creatinine Clearance 58 mL/min (70-130); Calcium 9.6 mg/dL (7.8-10.44); Carbon Dioxide 28 mmol/L (22-29); Chloride 118 mmol/L (98-107); Estimated GFR-MDRD 31; Glucose 193 mg/dL (70-105); Potassium 4.3 mmol/L (3.5-5.1); Sodium 154 mmol/L (136-145)
[2019-01-02 06:16] LABS: BUN (Urea Nitrogen) 126 mg/dL (9.8-20.1)
[2019-01-02] MEDS: HumaLOG 300 UNITS/3 ML VIAL SC PRN (06:40)
[2019-01-02 07:00] LABS: Actual Bicarbonate (HCO3a) 25.1 mEq/L (22-28); Base Excess (BEa) 1.4 mEq/L (-2.0 to +3.0); CO2 Tension 36.1 mmHg (35.0-45.0); Calcium, Ionized 1.26 mmol/L (1.12-1.30); Carboxyhemoglobin (COHb) 1.9 gm% (0.0-3.0); Hemoglobin (Hb) 10.8 g/dL (12.0-16.0); Potassium - ABG Lab 4.36 mmol/L (3.70-5.30); pH, Arterial 7.46 (7.35-7.45)
[2019-01-02 07:02] LABS: O2 Tension (PaO2) 48.9 mmHg (80.0-100.0); Puncture Site LR
[2019-01-02 07:03] LABS: ALV-art Gradient 241.085 (0-20)
--- NOTE | 2019-01-02 08:06 | RAD ---
PORTABLE CHEST ONE VIEW: 01/02/2019 5:01 a.m. HISTORY: Pneumonia. COMPARISON: Exam from the previous day. FINDINGS: Endotracheal and nasogastric tubes remain in place. Heart size is enlarged. Parenchymal lung change s remain stable. No pneumothoraces identified. IMPRESSION: Stable examination. POS: OFF
--- NOTE | 2019-01-02 08:33 | PRG ---
DATE OF SERVICE: 01/02/2019 TIME SPENT: 35 minutes critical care time. SUBJECTIVE: Ms. Rodriguez is awake, follows commands for me today. Tolerated spontaneous breathing well yesterday, but has still required a FiO2 of about 47%. PHYSICAL EXAMINATION: VITAL SIGNS: Temperature is 100.0, pulse 89, blood pressure 129/79, 24-hour intake 3006, output 2595. HEENT: Unremarkable. NECK: No JVD. LUNGS: Clear anteriorly. CARDIAC: S1, S2. Regular. ABDOMEN: Obese, soft, nontender. EXTREMITIES: No overt edema. LABORATORY DATA: Sodium 154, potassium 4.3, chloride 118, CO2 of 28, BUN 126, creatinine 2.0, and glucose 193. PH of 7.46, pCO2 of 36, pO2 of 48. White blood cell count 17, hematocrit 34.6, and platelet count 172. IMAGING STUDIES: X-ray is fairly clear. ASSESSMENT: 1. Acute on chronic respiratory failure, requiring mechanical ventilation. 2. Hypernatremia. 3. Renal insufficiency. 4. Obstructive sleep apnea. 5. Underlying severe chronic obstructive pulmonary disease and congestive heart failure. PLAN: 1. The patient has tolerated spontaneous breathing well. Although her oxygenation is not ideal, I think she is an appropriate candidate to try extubate it. I will put her on high-flow nasal cannula. If she fails, it will give me the opportunity to intubate her with a bigger tube than the 7.0, she is currently intubated with. 2. I have increased her NPH insulin. We will continue free water. I have continued to hold her Lasix for the time being. 3. Her Coumadin was restarted yesterday as her INR is now 2.0. Job ID: [id number]
[2019-01-02] MEDS: Famotidine/PF 20 mg/2ml Vial SLOW IVP SCH (08:43)
[2019-01-02] MEDS: NPH, Human Insulin Isophane 300 UNIT/3 ML VIAL SC SCH ×2 (08:44→22:02)
--- NOTE | 2019-01-02 11:57 | PDOC.PN ---
- Subjective Encounter Start Date: 01/02/19 Encounter Start Time: 11:55 Patient seen and examined, extubated today, no new issues overnight otherwise, no family at bedside, all questions answered. - Objective Resuscitation Status - Order Detail: 12/24/18 02:19 Resuscitation Status Routine Resuscitation Status: FULL: Full Resuscitation Vital Signs & Weight: Vital Signs (12 hours) Pulse Resp BP Pulse Ox 01/02/19 10:08 77 26 H 95 01/02/19 08:00 95 01/02/19 07:09 92 L 01/02/19 06:49 91 108/75 01/02/19 06:00 24 H 01/02/19 04:00 22 H 01/02/19 02:21 86 24 H 96 01/02/19 02:00 22 H 01/02/19 00:00 22 H Weight Admit Weight 261 lb 14.546 oz Weight 261 lb 14.546 oz Most Recent Monitor Data Heart Rate from ECG 79 NIBP 127/87 NIBP BP-Mean 100 Respiration from ECG 30 SpO2 97 I&O: 01/01/19 01/02/19 01/03/19 06:59 06:59 06:59 Intake Total 2418.6 3006 1792 Output Total 3035 2590 615 Balance -616.4 416 1177 Result Diagrams: 01/02/19 05:13 01/02/19 05:13 Phys Exam - Physical Examination Constitutional: NAD obese HEENT: PERRLA, moist MMs, sclera anicteric Neck: no nodes, no JVD, supple Respiratory: no wheezing, no rales, no rhonchi Cardiovascular: RRR, no significant murmur, no rub Gastrointestinal: soft, non-tender, no distention, positive bowel sounds Musculoskeletal: pulses present, edema present Dx/Plan (1) Acute kidney injury superimposed on CKD Code(s): N17.9 - ACUTE KIDNEY FAILURE, UNSPECIFIED; N18.9 - CHRONIC KIDNEY DISEASE, UNSPECIFIED Status: Acute Comment: s/p HD, serial creatinine monitoring (2) COPD exacerbation Code(s): J44.1 - CHRONIC OBSTRUCTIVE PULMONARY DISEASE W (ACUTE) EXACERBATION Status: Acute Comment: Continue Duonebs, Solumedrol, mech ventilation, Cefepime (3) Acute diastolic CHF (congestive heart failure) Code(s): I50.31 - ACUTE DIASTOLIC (CONGESTIVE) HEART FAILURE Status: Acute Comment: Patient continuing to diurese well. Creatinine stable. (4) DM type 2 (diabetes mellitus, type 2) Status: Chronic Qualifiers: Diabetes mellitus custodial insulin use: with custodial use Diabetes mellitus complication status: with kidney complications Diabetes mellitus complication detail: with chronic kidney disease Chronic kidney disease stage : stage 3 (moderate) Qualified Code(s): E11.22 - Type 2 diabetes mellitus with diabetic chronic kidney disease; N18.3 - Chronic kidney disease, stage 3 ( moderate); Z79.4 - [facility] (current) use of insulin Comment: ISS, accuchecks, ADA, labile due to Solumedrol (5) HLD (hyperlipidemia) Code(s): E78.5 - HYPERLIPIDEMIA, UNSPECIFIED Status: Chronic (6) Hypertension Code(s): I10 - ESSENTIAL (PRIMARY) HYPERTENSION Status: Chronic Comment: Spiking today. Will increase meds by adding small dose of hydralazine TID. (7) Morbid obesity Code(s): E66.01 - MORBID (SEVERE) OBESITY DUE TO EXCESS CALORIES Status: Chronic Comment: BMI = 48kg/m2 - Plan * extubated, stable * monitor in ICU for now, will consider moving to tele floor in AM if patient doing well * BP stable, Na levels appear to have reached a plateau, now that patient's extubated, once diet is restart she'll likely drink enough herself to fix the free water deficit, cont with current IVFs for now * labs in AM * no family at bedside
[2019-01-02] MEDS ORDERED: Sodium Bicarbonate 150 MEQ in Dextrose 5% in Water 1,000 ML IV SCH (13:45)
--- NOTE | 2019-01-02 14:12 | PRG ---
DATE OF SERVICE: 01/02/2019 SUBJECTIVE: A 58-year-old female being seen for acute kidney injury. The patient denied nausea, vomiting, chest pain. OBJECTIVE: VITAL SIGNS: Pulse 77, breathing 16, blood pressure 117/83. See above. Awake, alert, in no acute distress. GENERAL APPEARANCE AND MENTAL STATUS: Fair. HEAD/NECK: Normocephalic. Atraumatic. EYES: EOMI. No deformity. EARS: Clear. No ulcers. NOSE: Intact. No lesions. MOUTH: Clear. No discharge. THROAT: Clear. No exudate. LUNGS: Clear. No crackles. CARDIAC: S1, S2. No rub. ABDOMEN: Benign. Bowel sounds positive. GENITALIA/RECTUM: Beck absent. BACK/EXTREMITIES: Edema 0+. NEUROLOGICAL: Alert and motor intact. SKIN: LYMPHATICS: LABORATORY DATA: Labs reviewed. ASSESSMENT AND PLAN: 1. Stage 4 chronic kidney disease, stable. 2. Hypertension, stable. 3. Anemia, stable. 4. Medication based on GFR appropriate. 5. Hypernatremia. Would recommend free fluid. Job ID: [id number]
[2019-01-02] MEDS: Warfarin Sodium 5 MG TAB PO SCH (17:11)
[2019-01-03 04:32] LABS: #Eosinphils 0.2 thou/uL (0.0-0.7); #Lymphocytes 1.3 thou/uL (1.20-3.40); #Monocytes 1.1 thou/uL (0.11-0.59); #Neutrophils 14.6 thou/uL (1.40-6.50); %Eosinophils 1.4 % (0.0-10.0); %Lymphocytes 7.3 % (21.0-51.0); %Monocytes 6.3 % (0.0-10.0); Hemoglobin 10.3 g/dL (12.0-16.0); Mean Corpuscular HGB CONC 29.1 g/dL (32.0-36.0); Mean Corpuscular Hemoglobin 23.6 pg (27.0-31.0); Mean Corpuscular Volume 81.1 fL (78.0-98.0); Mean Platelet Volume 9.9 fL (7.4-10.4); Platelet Count 170 thou/uL (130-400); RBC Distribution Width 21.1 % (11.5-14.5); Red Blood Cell (RBC) Count 4.38 mill/uL (4.20-5.40); White Blood Cell (WBC) Count 17.2 thou/uL (4.8-10.8)
[2019-01-03 04:38] LABS: INR-International Normal Ratio 2.2; PTT 32.7 SEC (22.9-36.1); Prothrombin Time 24.4 SEC (12.0-14.7)
[2019-01-03 04:48] LABS: Anion Gap 15 mmol/L (10-20); BUN (Urea Nitrogen) 97 mg/dL (9.8-20.1); Calc. Creatinine Clearance 71 mL/min (70-130); Carbon Dioxide 28 mmol/L (22-29); Chloride 117 mmol/L (98-107); Estimated GFR-MDRD 38; Glucose 102 mg/dL (70-105); Potassium 4.5 mmol/L (3.5-5.1); Sodium 155 mmol/L (136-145)
--- NOTE | 2019-01-03 08:35 | RAD ---
EXAM: Portable chest PROVIDED CLINICAL HISTORY: Respiratory insufficiency COMPARISON: 01/02/2019 FINDINGS: Interval extubation and removal of enteric catheter. Additional significant interval change with resp ect to the prior examination is not apparent. IMPRESSION: As above.
[2019-01-03] MEDS: Famotidine/PF 20 mg/2ml Vial SLOW IVP SCH (09:23)
[2019-01-03] MEDS: NPH, Human Insulin Isophane 300 UNIT/3 ML VIAL SC SCH ×2 (09:24→23:52)
--- NOTE | 2019-01-03 09:45 | PRG ---
DATE OF SERVICE: 01/03/2019 SUBJECTIVE: Jennifer is a 58-year-old morbidly obese female, extubated yesterday, still having respiratory distress. OBJECTIVE: VITAL SIGNS: Respiratory rate is 31, temperature 98, blood pressure 130/94, pulse is 90. CHEST: Decreased breath sounds. Minimal crackles. CARDIAC: Sinus tach. ABDOMEN: Massive. LABORATORY DATA: Sodium is 155, BUN and creatinine are 97 and 1.67. GFR is decreased. X-ray shows cardiomegaly, left pleural effusion. White count platelet count 170. IMPRESSION AND PLAN: Respiratory failure, chronic obstructive pulmonary disease, congestive heart failure, azotemia, severe deconditioning. I do not see any reason why she should be on bicarb drip at this stage. Discontinue bicarb drip. Sodium is 155. PT. Supportive care. Increase diet. One-half hour of critical time. She needs nocturnal ventilation, presently she is on high-flow. Job ID: [id number]
--- NOTE | 2019-01-03 11:08 | PDOC.PN ---
- Subjective Encounter Start Date: 01/03/19 Encounter Start Time: 11:06 Patient seen and examined, family at bedside, following commands, no new issues overnight. - Objective Resuscitation Status - Order Detail: 12/24/18 02:19 Resuscitation Status Routine Resuscitation Status: FULL: Full Resuscitation Vital Signs & Weight: Vital Signs (12 hours) Temp Pulse Resp Pulse Ox 01/03/19 10:57 121 H 01/03/19 10:43 117 H 35 H 90 L 01/03/19 08:00 98.0 F 91 L 01/03/19 06:43 91 L 01/03/19 06:41 101 H 26 H 91 L 01/03/19 04:00 99.9 F H 01/03/19 02:19 89 24 H 100 Weight Admit Weight 261 lb 14.546 oz Weight 261 lb 14.546 oz Most Recent Monitor Data Heart Rate from ECG 115 NIBP 149/76 NIBP BP-Mean 100 Respiration from ECG 29 SpO2 91 I&O: 01/02/19 01/03/19 01/04/19 06:59 06:59 06:59 Intake Total 3006 4952 360 Output Total 2590 2840 310 Balance 416 2112 50 Result Diagrams: 01/03/19 04:00 01/03/19 04:00 Phys Exam - Physical Examination Constitutional: NAD obese HEENT: PERRLA, moist MMs, sclera anicteric Neck: no nodes, no JVD, supple no respiratory distress distant lung sounds slightly coarse Cardiovascular: no significant murmur, no rub sinus tachycardia Gastrointestinal: soft, non-tender, no distention Musculoskeletal: pulses present, edema present Dx/Plan (1) Acute kidney injury superimposed on CKD Code(s): N17.9 - ACUTE KIDNEY FAILURE, UNSPECIFIED; N18.9 - CHRONIC KIDNEY DISEASE, UNSPECIFIED Status: Acute Comment: s/p HD, serial creatinine monitoring (2) COPD exacerbation Code(s): J44.1 - CHRONIC OBSTRUCTIVE PULMONARY DISEASE W (ACUTE) EXACERBATION Status: Acute Comment: Continue Duonebs, Solumedrol, mech ventilation, Cefepime (3) Acute diastolic CHF (congestive heart failure) Code(s): I50.31 - ACUTE DIASTOLIC (CONGESTIVE) HEART FAILURE Status: Acute Comment: Patient continuing to diurese well. Creatinine stable. (4) DM type 2 (diabetes mellitus, type 2) Status: Chronic Qualifiers: Diabetes mellitus [facility] insulin use: with long term care social worker use Diabetes mellitus complication status: with kidney complications Diabetes mellitus complication detail: with chronic kidney disease Chronic kidney disease stage : stage 3 (moderate) Qualified Code(s): E11.22 - Type 2 diabetes mellitus with diabetic chronic kidney disease; N18.3 - Chronic kidney disease, stage 3 ( moderate); Z79.4 - long term care social worker (current) use of insulin Comment: ISS, accuchecks, ADA, labile due to Solumedrol (5) HLD (hyperlipidemia) Code(s): E78.5 - HYPERLIPIDEMIA, UNSPECIFIED Status: Chronic (6) Hypertension Code(s): I10 - ESSENTIAL (PRIMARY) HYPERTENSION Status: Chronic Comment: Spiking today. Will increase meds by adding small dose of hydralazine TID. (7) Morbid obesity Code(s): E66.01 - MORBID (SEVERE) OBESITY DUE TO EXCESS CALORIES Status: Chronic Comment: BMI = 48kg/m2 - Plan * stable, urine output stable * Na levels steady, diet started, monitor for now * cont breathing tx PRN * ICU for another 24 hours, can likely transfer to telemetry in AM * appreciate subspecialists input
[2019-01-03] MEDS ORDERED: Dextrose 5% in Water 1,000 ML IV SCH (12:15)
--- NOTE | 2019-01-03 14:02 | PRG ---
DATE OF SERVICE: 01/03/2019 SUBJECTIVE: A 58-year-old female is being seen for acute kidney injury. The patient denies any nausea, vomiting, or chest pain. OBJECTIVE: CONSTITUTIONAL: The patient is awake and alert. VITAL SIGNS: Afebrile, pulse 100, breathing 16, blood pressure 145/80. GENERAL APPEARANCE AND MENTAL STATUS: Fair. HEAD/NECK: Normocephalic. Atraumatic. EYES: EOMI. No deformity. EARS: Clear. No ulcers. NOSE: Intact. No lesions. MOUTH: Clear. No discharge. THROAT: Clear. No exudate. LUNGS: Clear. No crackles. CARDIAC: S1, S2. No rub. ABDOMEN: Benign. Bowel sounds positive. GENITALIA/RECTUM: Beck absent. BACK/EXTREMITIES: Edema 0+. NEUROLOGICAL: Alert and motor intact. LABORATORY DATA: Reviewed. ASSESSMENT: 1. Chronic kidney disease, stable. Acute kidney injury, improved. Acute tubular necrosis, improved. 2. Hypernatremia. I would recommend starting the patient on D5W. Once sodium is less than 150, I will sign off. Job ID: [id number]
[2019-01-03] MEDS: Warfarin Sodium 5 MG TAB PO SCH (17:16)
[2019-01-03 17:27] LABS: Actual Bicarbonate (HCO3a) 26.3 mEq/L (22-28); Base Excess (BEa) 3.5 mEq/L (-2.0 to +3.0); CO2 Tension 33.8 mmHg (35.0-45.0); Calcium, Ionized 1.17 mmol/L (1.12-1.30); Carboxyhemoglobin (COHb) 1.7 gm% (0.0-3.0); Hemoglobin (Hb) 11.4 g/dL (12.0-16.0); Potassium - ABG Lab 3.94 mmol/L (3.70-5.30); pH, Arterial 7.51 (7.35-7.45)
[2019-01-03 17:29] LABS: O2 Tension (PaO2) 46.8 mmHg (80.0-100.0); Puncture Site LRA
[2019-01-04 04:35] LABS: INR-International Normal Ratio 3.3; PTT 40.2 SEC (22.9-36.1); Prothrombin Time 33.5 SEC (12.0-14.7)
[2019-01-04 04:40] LABS: #Eosinphils 0.2 thou/uL (0.0-0.7); #Lymphocytes 1.1 thou/uL (1.20-3.40); #Monocytes 0.9 thou/uL (0.11-0.59); #Neutrophils 14.3 thou/uL (1.40-6.50); %Basophils 0.1 % (0.0-1.0); %Eosinophils 1.1 % (0.0-10.0); %Lymphocytes 6.9 % (21.0-51.0); %Monocytes 5.5 % (0.0-10.0); %Neutrophils 86.5 % (42.0-75.0); Hemoglobin 10.2 g/dL (12.0-16.0); Mean Corpuscular HGB CONC 29.3 g/dL (32.0-36.0); Mean Corpuscular Hemoglobin 23.8 pg (27.0-31.0); Mean Corpuscular Volume 81.2 fL (78.0-98.0); Mean Platelet Volume 11.5 fL (7.4-10.4); Platelet Count 157 thou/uL (130-400); RBC Distribution Width 20.9 % (11.5-14.5); Red Blood Cell (RBC) Count 4.29 mill/uL (4.20-5.40); White Blood Cell (WBC) Count 16.6 thou/uL (4.8-10.8)
[2019-01-04 04:49] LABS: Anion Gap 12 mmol/L (10-20); BUN (Urea Nitrogen) 74 mg/dL (9.8-20.1); Calc. Creatinine Clearance 72 mL/min (70-130); Calcium 8.7 mg/dL (7.8-10.44); Carbon Dioxide 29 mmol/L (22-29); Chloride 117 mmol/L (98-107); Estimated GFR-MDRD 39; Glucose 136 mg/dL (70-105); Potassium 3.9 mmol/L (3.5-5.1); Sodium 154 mmol/L (136-145)
--- NOTE | 2019-01-04 09:24 | RAD ---
AP VIEW CHEST: HISTORY: Pneumonia. COMPARISON: Comparison is made to a previous exam from 01/03/2019. FINDINGS: AP view chest demonstrates EKG leads seen over the chest. Cardiomegaly is seen. Pulmonary vascular co ngestion is seen. Left-sided pleural effusion is present. Areas of airspace opacity have slightly increased in the left lung base compatible with areas of left lower lobe atelectasis or pneumonia. IMPRESSION: Pulmonary vascular congestion and left lower lobe pneumonia or atelectasis. Transcribed Date/Time: 01/04/2019 9:27 AM
--- NOTE | 2019-01-04 09:31 | PRG ---
DATE OF SERVICE: 01/04/2019 SUBJECTIVE: This morning, she is better, less short of breath. X-ray shows massive cardiomegaly, bilateral lower lobe haziness, possibly some infiltrate. OBJECTIVE: VITAL SIGNS: Temperature 98, pulse 106, blood pressure 130/82, saturations are 96% on a BiPAP. GENERAL: She appears to be somewhat calmer. Otherwise on examination, awake, responsive. I's and O's consistently ahead. CHEST: Decreased breath sounds. No wheezing. CARDIAC: Sinus tach. ABDOMEN: Soft. LABORATORY DATA: Sodium is still 154, creatinine is still elevated at 1.63, BUN is 74, PO2 yesterday was only 46. INR is 3. IMPRESSION: 1. Respiratory failure. 2. Morbid obesity. 3. Sleep apnea. 4. Renal failure. 5. Long-term anticoagulation. 6. Deep venous thrombosis. 7. Chronic obstructive pulmonary disease. The patient's pulmonary status is precarious, hopefully we will have to intubate her. Continue aggressive neb treatments. Supportive care. Prognosis is guarded. Continue observation in the ICU. One-half hour of critical care time. Job ID: [id number]
[2019-01-04] MEDS: Famotidine/PF 20 mg/2ml Vial SLOW IVP SCH (10:57)
[2019-01-04] MEDS: HumaLOG 300 UNITS/3 ML VIAL SC PRN (10:58)
[2019-01-04] MEDS: NPH, Human Insulin Isophane 300 UNIT/3 ML VIAL SC SCH ×2 (10:59→21:06)
--- NOTE | 2019-01-04 11:30 | PDOC.PN ---
- Subjective Encounter Start Date: 01/04/19 Encounter Start Time: 11:28 Patient seen and examined, no new issues or complaints, no family at bedside, all questions answered. - Objective Resuscitation Status - Order Detail: 12/24/18 02:19 Resuscitation Status Routine Resuscitation Status: FULL: Full Resuscitation Vital Signs & Weight: Vital Signs (12 hours) Temp Pulse Resp Pulse Ox 01/04/19 10:29 95 01/04/19 10:28 108 H 30 H 95 01/04/19 08:00 98.0 F 97 01/04/19 07:17 104 H 01/04/19 02:08 96 01/04/19 02:07 96 29 H 95 Weight Admit Weight 261 lb 14.546 oz Weight 261 lb 14.546 oz Most Recent Monitor Data Heart Rate from ECG 107 NIBP 120/73 NIBP BP-Mean 88 Respiration from ECG 27 SpO2 96 I&O: 01/03/19 01/04/19 01/05/19 06:59 06:59 06:59 Intake Total 4952 1779 Output Total 2840 1820 300 Balance 2112 -41 -300 Result Diagrams: 01/04/19 04:05 01/04/19 04:05 Phys Exam - Physical Examination Constitutional: NAD HEENT: PERRLA, moist MMs, sclera anicteric Neck: no nodes, no JVD, supple Respiratory: no wheezing, no rales, no rhonchi Cardiovascular: RRR, no significant murmur, no rub Gastrointestinal: soft, non-tender, no distention, positive bowel sounds Musculoskeletal: pulses present, edema present Moves LUE, LLE, not moving RUE or RLE AAO x 3 Dx/Plan (1) Acute kidney injury superimposed on CKD Code(s): N17.9 - ACUTE KIDNEY FAILURE, UNSPECIFIED; N18.9 - CHRONIC KIDNEY DISEASE, UNSPECIFIED Status: Acute Comment: s/p HD, serial creatinine monitoring (2) COPD exacerbation Code(s): J44.1 - CHRONIC OBSTRUCTIVE PULMONARY DISEASE W (ACUTE) EXACERBATION Status: Acute Comment: Continue Duonebs, Solumedrol, mech ventilation, Cefepime (3) Acute diastolic CHF (congestive heart failure) Code(s): I50.31 - ACUTE DIASTOLIC (CONGESTIVE) HEART FAILURE Status: Acute Comment: Patient continuing to diurese well. Creatinine stable. (4) DM type 2 (diabetes mellitus, type 2) Status: Chronic Qualifiers: Diabetes mellitus roasterman insulin use: with penitentiary use Diabetes mellitus complication status: with kidney complications Diabetes mellitus complication detail: with chronic kidney disease Chronic kidney disease stage : stage 3 (moderate) Qualified Code(s): E11.22 - Type 2 diabetes mellitus with diabetic chronic kidney disease; N18.3 - Chronic kidney disease, stage 3 ( moderate); Z79.4 - termite treater helper (current) use of insulin Comment: ISS, accuchecks, ADA, labile due to Solumedrol (5) HLD (hyperlipidemia) Code(s): E78.5 - HYPERLIPIDEMIA, UNSPECIFIED Status: Chronic (6) Hypertension Code(s): I10 - ESSENTIAL (PRIMARY) HYPERTENSION Status: Chronic Comment: Spiking today. Will increase meds by adding small dose of hydralazine TID. (7) Morbid obesity Code(s): E66.01 - MORBID (SEVERE) OBESITY DUE TO EXCESS CALORIES Status: Chronic Comment: BMI = 48kg/m2 - Plan * on high flow O2 * bed to chair as tolerated, cont PT * monitor in ICU for now * right side appears to be paralyzed as she's not moving it * AMS improved * oxygenating well * cont current plan of care * case and plan d/w patient at length, she understood and agreed with this plan.
--- NOTE | 2019-01-04 13:13 | PRG ---
DATE OF SERVICE: 01/04/2019 SUBJECTIVE: A 58-year-old female, being seen for acute kidney injury and hypernatremia. The patient denies nausea, vomiting, or chest pain. OBJECTIVE: CONSTITUTIONAL: The patient is awake and alert. VITAL SIGNS: Afebrile. Pulse , blood pressure 120/73. GENERAL APPEARANCE AND MENTAL STATUS: Fair. HEAD/NECK: Normocephalic. Atraumatic. EYES: EOMI. No deformity. EARS: Clear. No ulcers. NOSE: Intact. No lesions. MOUTH: Clear. No discharge. THROAT: Clear. No exudate. LUNGS: Clear. No crackles. CARDIAC: S1, S2. No rub. ABDOMEN: Benign. Bowel sounds positive. GENITALIA/RECTUM: Beck absent. BACK/EXTREMITIES: Edema 0+. NEUROLOGICAL: Alert and motor intact. SKIN: LYMPHATICS: LABORATORY DATA: Labs show sodium 154. ASSESSMENT: Hypernatremia, improved. Hyperkalemia, improved. Acute kidney injury, improved. PLAN: For hypernatremia, I would recommend increasing D5W at 100 mL/h. Job ID: [id number]
[2019-01-04 17:20] LABS: Anion Gap 10 mmol/L (10-20); BUN (Urea Nitrogen) 61 mg/dL (9.8-20.1); Calc. Creatinine Clearance 78 mL/min (70-130); Calcium 8.6 mg/dL (7.8-10.44); Carbon Dioxide 27 mmol/L (22-29); Chloride 117 mmol/L (98-107); Estimated GFR-MDRD 43; Glucose 113 mg/dL (70-105); Potassium 3.8 mmol/L (3.5-5.1); Sodium 150 mmol/L (136-145)
[2019-01-04] MEDS: Warfarin Sodium 5 MG TAB PO SCH (17:32)
[2019-01-04] MEDS: Dextrose 5% in Water 1,000 ML IV SCH ×2 (18:35→21:06)
[2019-01-04] MEDS: Budesonide 0.5 MG/2 ML NEB INH SCH (19:07)
[2019-01-04] MEDS: Arformoterol 15 MCG/2 ML NEB NEB SCH (19:08)
[2019-01-05 03:56] LABS: PTT 48.7 SEC (22.9-36.1)
[2019-01-05 04:00] LABS: INR-International Normal Ratio 4.1
[2019-01-05 04:10] LABS: Anion Gap 13 mmol/L (10-20); BUN (Urea Nitrogen) 54 mg/dL (9.8-20.1); Calc. Creatinine Clearance 79 mL/min (70-130); Calcium 8.4 mg/dL (7.8-10.44); Carbon Dioxide 26 mmol/L (22-29); Chloride 114 mmol/L (98-107); Estimated GFR-MDRD 43; Glucose 116 mg/dL (70-105); Potassium 3.6 mmol/L (3.5-5.1); Sodium 149 mmol/L (136-145)
[2019-01-05 04:40] LABS: Hemoglobin 9.8 g/dL (12.0-16.0); Hypochromia SLIGHT = 6-15 cells (100X) (0-5/hpf); Lymphocytes 8 % (21-51); MDiff Complete? YES; Mean Corpuscular HGB CONC 28.9 g/dL (32.0-36.0); Mean Corpuscular Hemoglobin 23.7 pg (27.0-31.0); Mean Platelet Volume 11.4 fL (7.4-10.4); Monocytes 1 % (0-10); Neutrophil 91 % (42-75); Platelet Count 139 thou/uL (130-400); Platelet Morphology Comment Appears Adequate; RBC Distribution Width 20.4 % (11.5-14.5); Red Blood Cell (RBC) Count 4.15 mill/uL (4.20-5.40); White Blood Cell (WBC) Count 20.4 thou/uL (4.8-10.8)
[2019-01-05] MEDS: Dextrose 5% in Water 1,000 ML IV SCH ×2 (06:03→21:23)
--- NOTE | 2019-01-05 07:48 | RAD ---
Chest AP view INDICATION: Pneumonia COMPARISON: January 04, 2019 FINDINGS: Lungs:Perihilar opacities persist Cardiac silhouette pulmonary vasculature:Moderate cardiomegaly and prominent pulmonary vascular conge stion stable. Pleural spaces:Small right and moderate left pleural effusion persists. No pneumothorax is demonstrat ed. Upper abdomen:No abnormality seen. Osseous structures: No acute osseous abnormality. IMPRESSION: Stable examination. No pneumothorax
[2019-01-05] MEDS: Budesonide 0.5 MG/2 ML NEB INH SCH ×2 (07:56→18:11)
[2019-01-05] MEDS: Arformoterol 15 MCG/2 ML NEB NEB SCH ×2 (07:56→18:11)
[2019-01-05] MEDS: Famotidine/PF 20 mg/2ml Vial SLOW IVP SCH (09:18)
[2019-01-05] MEDS: NPH, Human Insulin Isophane 300 UNIT/3 ML VIAL SC SCH ×2 (09:19→21:24)
--- NOTE | 2019-01-05 09:57 | PRG ---
DATE OF SERVICE: 01/05/2019 SUBJECTIVE: Ms. Rodriguez was extubated on Saturday. She started having some trouble on Saturday. She required noninvasive ventilation throughout the day Saturday. On Saturday, she was able to alternate noninvasive ventilation and high-flow nasal oxygen. This morning, she was taken off BiPAP and is on high-flow nasal cannula. She is able to talk some. OBJECTIVE: VITAL SIGNS: Her temperature is 98.9, pulse 83, blood pressure 113/69, and O2 saturation 94%. Intake for the last 24 hours 2415 and output 1605. HEENT: Unremarkable. NECK: No JVD. LUNGS: Distant, but clear breath sounds. CARDIAC: S1 and S2. Regular. ABDOMEN: Obese, soft, and nontender. EXTREMITIES: No edema. LABORATORY DATA: Sodium 149, potassium 3.6, chloride 114, CO2 of 26, BUN 54, creatinine 1.5, and glucose 116. White blood cell count 20.4, hemoglobin 9.8, hematocrit 34.0, and platelet count 139. Chest x-ray shows no acute changes. ASSESSMENT: 1. Acute on chronic hypercapnic and hypoxic respiratory failure. 2. Chronic obstructive pulmonary disease exacerbation. 3. Morbid obesity. 4. Hypernatremia. 5. Acute renal insufficiency. 6. Diabetes mellitus. PLAN: 1. I have decreased her insulin. Her blood sugars are better now that she is off the steroids. 2. Continue also on a high-flow nasal cannula and BiPAP as needed. 3. Hold Coumadin as the patient is overly anticoagulated today. 4. Physical therapy. 5. Continue in the ICU. Job ID: [id number]
--- NOTE | 2019-01-05 11:10 | PDOC.PN ---
- Subjective Encounter Start Date: 01/05/19 Encounter Start Time: 11:09 patient seen and examined, no new issues. - Objective Resuscitation Status - Order Detail: 12/24/18 02:19 Resuscitation Status Routine Resuscitation Status: FULL: Full Resuscitation Vital Signs & Weight: Vital Signs (12 hours) Temp Pulse Resp Pulse Ox 01/05/19 08:00 98.8 F 91 L 01/05/19 07:57 93 L 01/05/19 07:55 93 24 H 93 L 01/05/19 04:00 98.9 F 01/05/19 02:32 90 01/05/19 02:31 90 29 H 97 01/05/19 00:00 99.4 F Weight Admit Weight 261 lb 14.546 oz Weight 261 lb 14.546 oz Most Recent Monitor Data Heart Rate from ECG 101 NIBP 113/82 NIBP BP-Mean 92 Respiration from ECG 35 SpO2 93 I&O: 01/04/19 01/05/19 01/06/19 06:59 06:59 06:59 Intake Total 1779 2415 Output Total 1820 1605 220 Balance -41 810 -220 Result Diagrams: 01/05/19 03:35 01/05/19 03:35 Phys Exam - Physical Examination Constitutional: NAD HEENT: PERRLA, moist MMs, sclera anicteric Neck: no nodes, no JVD, supple Respiratory: no wheezing, no rales, no rhonchi Cardiovascular: RRR, no significant murmur, no rub Gastrointestinal: soft, non-tender, no distention, positive bowel sounds Musculoskeletal: pulses present, edema present Dx/Plan (1) Acute kidney injury superimposed on CKD Code(s): N17.9 - ACUTE KIDNEY FAILURE, UNSPECIFIED; N18.9 - CHRONIC KIDNEY DISEASE, UNSPECIFIED Status: Acute Comment: s/p HD, serial creatinine monitoring (2) COPD exacerbation Code(s): J44.1 - CHRONIC OBSTRUCTIVE PULMONARY DISEASE W (ACUTE) EXACERBATION Status: Acute Comment: Continue Duonebs, Solumedrol, mech ventilation, Cefepime (3) Acute diastolic CHF (congestive heart failure) Code(s): I50.31 - ACUTE DIASTOLIC (CONGESTIVE) HEART FAILURE Status: Acute Comment: Patient continuing to diurese well. Creatinine stable. (4) DM type 2 (diabetes mellitus, type 2) Status: Chronic Qualifiers: Diabetes mellitus intermediate project manager insulin use: with intermediate project manager use Diabetes mellitus complication status: with kidney complications Diabetes mellitus complication detail: with chronic kidney disease Chronic kidney disease stage : stage 3 (moderate) Qualified Code(s): E11.22 - Type 2 diabetes mellitus with diabetic chronic kidney disease; N18.3 - Chronic kidney disease, stage 3 ( moderate); Z79.4 - termination clerk (current) use of insulin Comment: ISS, accuchecks, ADA, labile due to Solumedrol (5) HLD (hyperlipidemia) Code(s): E78.5 - HYPERLIPIDEMIA, UNSPECIFIED Status: Chronic (6) Hypertension Code(s): I10 - ESSENTIAL (PRIMARY) HYPERTENSION Status: Chronic Comment: Spiking today. Will increase meds by adding small dose of hydralazine TID. (7) Morbid obesity Code(s): E66.01 - MORBID (SEVERE) OBESITY DUE TO EXCESS CALORIES Status: Chronic Comment: BMI = 48kg/m2 - Plan * not moving right side * cont PT * on high flow O2 for now * montior in ICU * slowly improving in condition * no family at bedside
--- NOTE | 2019-01-05 12:46 | PRG ---
DATE OF SERVICE: 01/05/2019 SUBJECTIVE: A 58-year-old female, being seen for acute kidney injury. The patient denied nausea, vomiting, or chest pain. OBJECTIVE: CONSTITUTIONAL: The patient is awake and alert. VITAL SIGNS: Afebrile, pulse 75, breathing 16, blood pressure 109/78. GENERAL APPEARANCE AND MENTAL STATUS: Fair. HEAD/NECK: Normocephalic. Atraumatic. EYES: EOMI. No deformity. EARS: Clear. No ulcers. NOSE: Intact. No lesions. MOUTH: Clear. No discharge. THROAT: Clear. No exudate. LUNGS: Clear. No crackles. CARDIAC: S1, S2. No rub. ABDOMEN: Benign. Bowel sounds positive. GENITALIA/RECTUM: Beck absent. BACK/EXTREMITIES: Edema 0+. NEUROLOGICAL: Alert and motor intact. SKIN: LYMPHATICS: LABORATORY DATA: Labs reviewed. ASSESSMENT AND PLAN: Chronic kidney disease with acute kidney injury, improved. No indication for dialysis. Hyponatremia, improved. Would recommend increasing the D5W 200 mL/h. Medication based on GFR appropriate. Recheck sodium. I will sign off on this patient. Please reconsult as needed. Job ID: [id number]
[2019-01-05 15:36] LABS: Anion Gap 12 mmol/L (10-20); BUN (Urea Nitrogen) 51 mg/dL (9.8-20.1); Calc. Creatinine Clearance 79 mL/min (70-130); Calcium 8.5 mg/dL (7.8-10.44); Carbon Dioxide 26 mmol/L (22-29); Chloride 113 mmol/L (98-107); Estimated GFR-MDRD 44; Glucose 139 mg/dL (70-105); Potassium 3.7 mmol/L (3.5-5.1); Sodium 147 mmol/L (136-145)
[2019-01-06 06:31] LABS: PTT 61.8 SEC (22.9-36.1); Prothrombin Time 44.3 SEC (12.0-14.7)
[2019-01-06 06:46] LABS: Anion Gap 14 mmol/L (10-20); BUN (Urea Nitrogen) 46 mg/dL (9.8-20.1); Calc. Creatinine Clearance 78 mL/min (70-130); Calcium 8.4 mg/dL (7.8-10.44); Carbon Dioxide 23 mmol/L (22-29); Chloride 110 mmol/L (98-107); Estimated GFR-MDRD 43; Glucose 115 mg/dL (70-105); Potassium 3.4 mmol/L (3.5-5.1); Sodium 144 mmol/L (136-145)
[2019-01-06 07:17] LABS: Band 1 % (5-11); Eosinophils 1 % (0-10); Hemoglobin 9.5 g/dL (12.0-16.0); Hypochromia SLIGHT = 6-15 cells (100X) (0-5/hpf); Lymphocytes 4 % (21-51); MDiff Complete? YES; Mean Corpuscular HGB CONC 28.9 g/dL (32.0-36.0); Mean Corpuscular Hemoglobin 23.7 pg (27.0-31.0); Mean Platelet Volume 11.8 fL (7.4-10.4); Metamyelocyte 1 % (0-0); Monocytes 3 % (0-10); Neutrophil 90 % (42-75); Platelet Count 137 thou/uL (130-400); Polychromasia MODERATE = 3-4 cells (100X) (0-2/hpf); RBC Distribution Width 21.6 % (11.5-14.5); Red Blood Cell (RBC) Count 4.02 mill/uL (4.20-5.40); Schistocytes SLIGHT = 2-5 cells (100X) (0-1/hpf); White Blood Cell (WBC) Count 18.6 thou/uL (4.8-10.8)
[2019-01-06] MEDS: Arformoterol 15 MCG/2 ML NEB NEB SCH ×2 (07:20→18:42)
[2019-01-06] MEDS: Budesonide 0.5 MG/2 ML NEB INH SCH ×2 (07:20→18:42)
[2019-01-06 07:26] LABS: INR-International Normal Ratio 4.7
[2019-01-06] MEDS: Famotidine/PF 20 mg/2ml Vial SLOW IVP SCH (08:56)
[2019-01-06] MEDS: NPH, Human Insulin Isophane 300 UNIT/3 ML VIAL SC SCH ×2 (08:57→21:30)
--- NOTE | 2019-01-06 09:53 | PRG ---
DATE OF SERVICE: SUBJECTIVE: Ms. Rodriguez was on high-flow oxygen most day yesterday and wore some BiPAP last night. She looks to be about the same. OBJECTIVE: VITAL SIGNS: Temperature is 98.1, pulse 83, blood pressure 103/60, O2 saturation 99%. Total intake for 24 hours 2039, output 825. HEENT: Unremarkable. NECK: No JVD. LUNGS: Coarse breath sounds. CARDIAC: S1 and S2. Regular. ABDOMEN: Soft, obese, nontender. EXTREMITIES: No edema. LABORATORY DATA: White blood cell count 18.6, hematocrit 33, platelet count 137. INR is up to 4.7. Sodium 144, potassium 3.4, chloride 110, CO2 of 23, BUN 46, creatinine 1.5, and glucose 115. ASSESSMENT: 1. Acute respiratory failure requiring mechanical ventilation-extubated, now requiring high-flow oxygen alternating with BiPAP. 2. Severe underlying chronic obstructive pulmonary disease. 3. History of deep venous thrombosis/pulmonary embolism. Continues to have a supratherapeutic INR, but no evidence of bleeding. 4. Diabetes mellitus with adequate blood sugars on NPH insulin. PLAN: 1. The patient is not stable enough to move out to [facility] yet. We need to work on trying to get her up to a chair. Her INR is increasing despite Coumadin being held. 2. Would discontinue the free water infusion given that her sodium is normal. Given that the D5W will not be infusing anymore, I will go down on her NPH insulin some more. Job ID: [id number]
[2019-01-06] MEDS ORDERED: Fluconazole In NaCl,Iso-Osm 200 MG in Premix Bag 1 BAG IVPB SCH (22:45)
--- NOTE | 2019-01-06 22:45 | PDOC.PN ---
- Subjective Encounter Start Date: 01/06/19 Encounter Start Time: 10:15 -: pt up in bed appears sob - Objective Resuscitation Status - Order Detail: 12/24/18 02:19 Resuscitation Status Routine Resuscitation Status: FULL: Full Resuscitation Vital Signs & Weight: Vital Signs (12 hours) Temp Pulse Resp Pulse Ox 01/06/19 22:30 96 28 H 95 01/06/19 20:00 99 01/06/19 19:00 99.4 F 01/06/19 18:42 101 H 30 H 96 01/06/19 18:41 101 H 30 H 96 01/06/19 16:00 98.5 F 01/06/19 14:50 94 L 01/06/19 14:48 93 31 H 94 L 01/06/19 12:00 98.8 F 01/06/19 11:22 94 L 01/06/19 11:20 89 35 H 94 L Weight Admit Weight 261 lb 14.546 oz Weight 253 lb 8.505 oz Most Recent Monitor Data Heart Rate from ECG 93 NIBP 101/65 NIBP BP-Mean 77 Respiration from ECG 27 SpO2 100 I&O: 01/05/19 01/06/19 01/07/19 06:59 06:59 06:59 Intake Total 2415 2040 3659 Output Total 1605 825 540 Balance 810 1215 3119 Result Diagrams: 01/06/19 04:37 01/06/19 04:37 Additional Labs: Accuchecks 01/05/19 01/05/19 01/05/19 21:24 17:49 12:54 POC Glucose 172 H 169 H 155 H 01/05/19 01/04/19 01/04/19 03:37 20:03 16:47 POC Glucose 114 H 76 110 01/04/19 01/04/19 01/03/19 10:58 00:14 20:59 POC Glucose 204 H 147 H 114 H 01/03/19 01/03/19 01/03/19 17:17 12:22 07:49 POC Glucose 120 H 122 H 141 H 01/03/19 01/02/19 01/02/19 00:36 21:57 15:56 POC Glucose 110 122 H 89 01/02/19 01/02/19 01/01/19 12:16 05:46 20:52 POC Glucose 85 196 H 120 H 01/01/19 01/01/19 01/01/19 17:03 10:44 04:17 POC Glucose 108 262 H 285 H Phys Exam - Physical Examination Neck: no nodes, no JVD, supple, full ROM diminished breath sounds all over Cardiovascular: RRR, no significant murmur, no rub, gallop, irregular Gastrointestinal: soft, non-tender, no distention, positive bowel sounds Dx/Plan (1) Acute respiratory failure with hypoxia and hypercapnia Code(s): J96.01 - ACUTE RESPIRATORY FAILURE WITH HYPOXIA; J96.02 - ACUTE RESPIRATORY FAILURE WITH HYPERCAPNIA Status: Acute Comment: Continue mech ventilation weaning as clinically indicated, PCXR in am (2) Vaginal yeast infection Code(s): B37.3 - CANDIDIASIS OF VULVA AND VAGINA Status: Acute (3) Acute kidney injury superimposed on CKD Code(s): N17.9 - ACUTE KIDNEY FAILURE, UNSPECIFIED; N18.9 - CHRONIC KIDNEY DISEASE, UNSPECIFIED Status: Acute (4) COPD exacerbation Code(s): J44.1 - CHRONIC OBSTRUCTIVE PULMONARY DISEASE W (ACUTE) EXACERBATION Status: Acute - Plan very deconditioned, pt completed abx -: will add diflucan x1 -: significant edema all over, will get nutrition to see pt. -: will check electrolytes in am. PT consulted. low output -: will need swing vs inpatient rehab once stable * . Review of Systems - Review of Systems ENT: negative: Ear Pain, Ear Discharge, Nose Pain, Nose Discharge, Nose Congestion, Mouth Pain, Mouth Swelling, Throat Pain, Throat Swelling, Other Respiratory: Shortness of Breath Cardiovascular: negative: chest pain, palpitations, orthopnea, paroxysmal nocturnal dyspnea, edema, light headedness, other Gastrointestinal: negative: Nausea, Vomiting, Abdominal Pain, Diarrhea, Constipation, Melena, Hematochezia, Other - Medications/Allergies Allergies/Adverse Reactions: Allergies Allergy/AdvReac Type Severity Reaction Status Date / Time No Known Allergies Allergy Verified 08/23/18 07:43 Medications: Current Medications Acetaminophen (Tylenol) 650 mg WA Q4H PRN PRN Reason: Headache/Fever/Mild Pain (1-3) Albuterol/Ipratropium (Duoneb) 3 ml NEB [id number] RAHUL Last Admin: 01/06/19 22:30 Dose: 3 ml Lipase/Protease/Amylase ([place] [id number]) 1 cap PER TUBE ASDIR PRN PRN Reason: TUBE OCCLUSION [place] Arformoterol Tartrate (Brovana) 15 mcg NEB BID-RT [facility] Last Admin: 01/06/19 18:42 Dose: 15 mcg Budesonide (Pulmicort Neb Solution) 0.5 mg INH BID-RT [facility] Last Admin: 01/06/19 18:42 Dose: 0.5 mg Dextrose/Water (Dextrose 50%) 25 gm SLOW IVP PRN PRN PRN Reason: Hypoglycemia Famotidine (Pepcid) 20 mg SLOW IVP QAM [facility] Last Admin: 01/06/19 08:56 Dose: 20 mg Glucagon (Glucagon) 1 mg IM PRN PRN PRN Reason: Hypoglycemia Dextrose/Water (D5w) 1,000 mls @ 0 mls/hr IV .Q0M PRN PRN Reason: Hypoglycemia Last Admin: 01/06/19 22:26 Dose: 1,000 mls Fluconazole/Sodium Chloride (200 mg/ Device) 100 mls @ 100 mls/hr IVPB NOW [facility] Stop: 01/07/19 01:00 Insulin Human Lispro (Humalog) 0 units SC .AGGRESSIVE SLIDING PRN PRN Reason: Aggressive Correctional Scale Last Admin: 01/04/19 10:58 Dose: 6 unit Insulin Human NPH (Humulin N) 15 unit SC BID [facility] Last Admin: 01/06/19 21:30 Dose: 15 units Miscellaneous Medication (Ventilator Sedation Protocol) 1 each FS ONE [facility] Stop: 01/23/19 02:16 Miscellaneous Medication (Pharmacy To Dose) 1 each PO PRN PRN PRN Reason: Pharmacy to dose Discontinue Previous Narcotic Pain Medications And Benzodiazepines 1 each FS .ONE [facility] Stop: 01/23/19 02:37 Ondansetron HCl (Zofran Odt) 4 mg PO Q6H PRN PRN Reason: Nausea/Vomiting Ondansetron HCl (Zofran) 4 mg IVP Q6H PRN PRN Reason: Nausea/Vomiting Sodium Bicarbonate (Bicarbonate, Sodium) 650 mg PER TUBE ASDIR PRN PRN Reason: TUBE OCCLUSION TX Sodium Chloride (Flush - Normal Saline) 10 ml IVF Q12HR [facility] Last Admin: 01/06/19 21:27 Dose: 10 ml Sodium Chloride (Flush - Normal Saline) 10 ml IVF PRN PRN PRN Reason: Saline Flush Sterile Water (Bacteriostatic Water) 1 ml FS PRN PRN PRN Reason: RECONSTITUTION Tramadol HCl (Ultram) 25 mg PO Q6H PRN PRN Reason: Mild-Moderate Pain (1-5) Warfarin Sodium (Coumadin) 5 mg PO 1700 RAHUL Last Admin: 01/04/19 17:32 Dose: 5 mg
[2019-01-07 05:02] LABS: PTT 64.2 SEC (22.9-36.1); Prothrombin Time 38.7 SEC (12.0-14.7)
[2019-01-07 05:16] LABS: Anion Gap 12 mmol/L (10-20); BUN (Urea Nitrogen) 45 mg/dL (9.8-20.1); Calc. Creatinine Clearance 79 mL/min (70-130); Calcium 8.5 mg/dL (7.8-10.44); Carbon Dioxide 25 mmol/L (22-29); Chloride 108 mmol/L (98-107); Estimated GFR-MDRD 45; Glucose 95 mg/dL (70-105); Magnesium 1.9 mg/dL (1.6-2.6); Phosphorus 3.7 mg/dL (2.3-4.7); Potassium 3.4 mmol/L (3.5-5.1); Sodium 142 mmol/L (136-145)
[2019-01-07 05:51] LABS: #Eosinphils 0.3 thou/uL (0.0-0.7); #Lymphocytes 1.1 thou/uL (1.20-3.40); #Monocytes 0.5 thou/uL (0.11-0.59); #Neutrophils 12.6 thou/uL (1.40-6.50); %Basophils 0.1 % (0.0-1.0); %Eosinophils 1.8 % (0.0-10.0); %Lymphocytes 7.8 % (21.0-51.0); %Monocytes 3.6 % (0.0-10.0); %Neutrophils 86.7 % (42.0-75.0); Hemoglobin 8.9 g/dL (12.0-16.0); Mean Corpuscular HGB CONC 28.5 g/dL (32.0-36.0); Mean Corpuscular Hemoglobin 23.2 pg (27.0-31.0); Mean Corpuscular Volume 81.5 fL (78.0-98.0); Mean Platelet Volume 10.5 fL (7.4-10.4); Platelet Count 118 thou/uL (130-400); RBC Distribution Width 20.2 % (11.5-14.5); Red Blood Cell (RBC) Count 3.84 mill/uL (4.20-5.40); White Blood Cell (WBC) Count 14.5 thou/uL (4.8-10.8)
[2019-01-07 05:52] LABS: Band 4 % (5-11); Hypochromia SLIGHT = 6-15 cells (100X) (0-5/hpf); Lymphocytes 8 % (21-51); MDiff Complete? YES; Monocytes 3 % (0-10); Neutrophil 85 % (42-75); Platelet Morphology Comment Appears Decreased
[2019-01-07] MEDS: Budesonide 0.5 MG/2 ML NEB INH SCH ×2 (07:11→18:17)
[2019-01-07] MEDS: Arformoterol 15 MCG/2 ML NEB NEB SCH ×2 (07:11→18:17)
--- NOTE | 2019-01-07 08:20 | PRG ---
DATE OF SERVICE: 01/07/2019 SUBJECTIVE: The patient is doing a little better. She is more talkative than she has been. She got up in a chair yesterday and physical therapy worked with her. She is wearing BiPAP at night and high-flow nasal cannula during the daytime. OBJECTIVE: VITAL SIGNS: On exam, temperature is 98.9, pulse 86, blood pressure 101/65, and O2 sat 93%. Intake for the last 24 hours has been 3659, output 765. HEENT: Unremarkable. NECK: No JVD. LUNGS: Coarse breath sounds. CARDIAC: S1 and S2, regular. ABDOMEN: Soft, obese, nontender. EXTREMITIES: Trace edema. LABORATORY DATA: Sodium 142, potassium 3.4, chloride 108, CO2 of 25, BUN 45, creatinine 1.4, and glucose 95. White blood cell count 14.5, hemoglobin 8.9, hematocrit 31.3, and platelet count 118. ASSESSMENT: 1. Acute on chronic hypoxic and hypercapnic respiratory failure, requiring mechanical ventilation, high-flow oxygen. 2. Supratherapeutic INR - INR today is 4.0, trending downward. Coumadin continuing to be held. 3. Resolved hypernatremia. 4. Morbid obesity. 5. Obstructive sleep apnea/obesity hypoventilation syndrome. 6. Diabetes mellitus. PLAN: 1. Up in a chair again as tolerated. She remains critically ill and is not at the point where she can be transferred out of the CCU. 2. I will go down on her insulin as her blood sugars are continuing to trend lower. This is also helping that she is off the D5W. 3. Consider rehab, LTAC placement. Job ID: [id number]
[2019-01-07] MEDS: Famotidine/PF 20 mg/2ml Vial SLOW IVP SCH (08:25)
[2019-01-07] MEDS: NPH, Human Insulin Isophane 300 UNIT/3 ML VIAL SC SCH ×2 (08:25→21:11)
[2019-01-07] MEDS: traMADol HCl 50 MG TAB PO PRN (13:31)
--- NOTE | 2019-01-07 17:43 | PDOC.PN ---
- Subjective Encounter Start Date: 01/07/19 Encounter Start Time: 15:15 Doing ok. Has no needs. Still slightly SOB. - Objective Resuscitation Status - Order Detail: 12/24/18 02:19 Resuscitation Status Routine Resuscitation Status: FULL: Full Resuscitation Vital Signs & Weight: Vital Signs (12 hours) Pulse Resp Pulse Ox 01/07/19 14:40 97 01/07/19 14:37 109 H 33 H 97 01/07/19 10:51 94 L 01/07/19 10:49 105 H 32 H 95 01/07/19 07:13 85 01/07/19 07:12 95 01/07/19 07:09 85 35 H 95 Weight Admit Weight 261 lb 14.546 oz Weight 254 lb 13.67 oz Most Recent Monitor Data Heart Rate from ECG 111 NIBP 117/72 NIBP BP-Mean 87 Respiration from ECG 37 SpO2 86 I&O: 01/06/19 01/07/19 01/08/19 06:59 06:59 06:59 Intake Total 2040 3659 1100 Output Total 825 765 430 Balance 1215 2894 670 Result Diagrams: 01/07/19 04:10 01/07/19 04:10 Additional Labs: Accuchecks 01/05/19 01/05/19 01/05/19 21:24 17:49 12:54 POC Glucose 172 H 169 H 155 H 01/05/19 03:37 POC Glucose 114 H Phys Exam - Physical Examination Constitutional: NAD Morbidly obese. Scattered rales throughout. R>L. Diminished. Cardiovascular: RRR, no significant murmur, no rub Gastrointestinal: soft, non-tender, no distention, positive bowel sounds Trace to 1+ BLE edema. Psychiatric: normal affect Dx/Plan (1) Acute on chronic stage C diastolic heart failure Code(s): I50.33 - ACUTE ON CHRONIC DIASTOLIC (CONGESTIVE) HEART FAILURE Status : Acute Comment: on diuresis. continue.monitor I/Os (2) Acute respiratory failure with hypoxia and hypercapnia Code(s): J96.01 - ACUTE RESPIRATORY FAILURE WITH HYPOXIA; J96.02 - ACUTE RESPIRATORY FAILURE WITH HYPERCAPNIA Status: Acute Comment: Continue mech ventilation weaning as clinically indicated, PCXR in am (3) COPD exacerbation Code(s): J44.1 - CHRONIC OBSTRUCTIVE PULMONARY DISEASE W (ACUTE) EXACERBATION Status: Acute (4) Vaginal yeast infection Code(s): B37.3 - CANDIDIASIS OF VULVA AND VAGINA Status: Acute (5) Supratherapeutic INR Code(s): R79.1 - ABNORMAL COAGULATION PROFILE Status: Acute (6) DM type 2 (diabetes mellitus, type 2) Status: Chronic Qualifiers: Diabetes mellitus nursing home insulin use: with long term care social worker use Diabetes mellitus complication status: with kidney complications Diabetes mellitus complication detail: with chronic kidney disease Chronic kidney disease stage : stage 3 (moderate) Qualified Code(s): E11.22 - Type 2 diabetes mellitus with diabetic chronic kidney disease; N18.3 - Chronic kidney disease, stage 3 ( moderate); 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 Will increase meds by adding small dose of hydralazine TID. (9) Morbid obesity Code(s): E66.01 - MORBID (SEVERE) OBESITY DUE TO EXCESS CALORIES Status: Chronic Comment: BMI = 48kg/m2 - Plan * Severe pulmonary disease that resulted in hypoxic resp failure and mechanical ventilation. * Slowly improving. * Pulmonary following. * Continue oxygen support with positive pressure as needed, nebs. * Holding warfarin due to the hx of DVT. * Glucose improving and insulin decreased.
[2019-01-08 05:04] LABS: INR-International Normal Ratio 3.3; Prothrombin Time 33.6 SEC (12.0-14.7)
[2019-01-08 05:05] LABS: PTT 63.2 SEC (22.9-36.1)
[2019-01-08 05:07] LABS: #Eosinphils 0.1 thou/uL (0.0-0.7); #Lymphocytes 1.3 thou/uL (1.20-3.40); #Monocytes 0.7 thou/uL (0.11-0.59); #Neutrophils 12.8 thou/uL (1.40-6.50); %Basophils 0.3 % (0.0-1.0); %Eosinophils 0.6 % (0.0-10.0); %Lymphocytes 8.7 % (21.0-51.0); %Monocytes 4.8 % (0.0-10.0); %Neutrophils 85.6 % (42.0-75.0); Hemoglobin 9.5 g/dL (12.0-16.0); Mean Corpuscular HGB CONC 30.1 g/dL (32.0-36.0); Mean Corpuscular Hemoglobin 24.3 pg (27.0-31.0); Mean Corpuscular Volume 80.7 fL (78.0-98.0); Platelet Count 114 thou/uL (130-400); RBC Distribution Width 21.2 % (11.5-14.5); Red Blood Cell (RBC) Count 3.93 mill/uL (4.20-5.40); White Blood Cell (WBC) Count 14.9 thou/uL (4.8-10.8)
[2019-01-08 05:24] LABS: Anion Gap 15 mmol/L (10-20); BUN (Urea Nitrogen) 51 mg/dL (9.8-20.1); Calc. Creatinine Clearance 64 mL/min (70-130); Calcium 8.6 mg/dL (7.8-10.44); Carbon Dioxide 23 mmol/L (22-29); Chloride 105 mmol/L (98-107); Estimated GFR-MDRD 36; Glucose 123 mg/dL (70-105); Potassium 3.7 mmol/L (3.5-5.1); Sodium 139 mmol/L (136-145)
[2019-01-08] MEDS: Arformoterol 15 MCG/2 ML NEB NEB SCH ×2 (06:46→18:28)
[2019-01-08] MEDS: Budesonide 0.5 MG/2 ML NEB INH SCH ×2 (06:47→18:29)
--- NOTE | 2019-01-08 08:28 | PRG ---
DATE OF SERVICE: 01/08/2019 SUBJECTIVE: Ms. Rodriguez look to be about the same. She is still requiring high-flow oxygen alternating with BiPAP. OBJECTIVE: VITAL SIGNS: Temperature 99.0, pulse 87, blood pressure 100/66, O2 saturation 93%. Intake for 24 hours 2493, output 860. HEENT: Unremarkable. NECK: Without adenopathy or JVD. LUNGS: Rhonchi bilaterally. ABDOMEN: Soft, obese, nontender. EXTREMITIES: Edematous. LABORATORY DATA: Sodium 139, potassium 3.7, chloride 105, CO2 of 23, BUN 51, creatinine 1.7, glucose 123. White blood cell count 14.9, hematocrit 31.7, and platelet count 114. INR is 3.3. ASSESSMENT: 1. Acute on chronic hypoxic and hypercapnic respiratory failure, requiring mechanical ventilation with high-flow oxygen. 2. Supratherapeutic INR, which is trending downward. 3. Resolved hyponatremia. 4. Morbid obesity. 5. Obstructive sleep apnea. 6. Diabetes mellitus. PLAN: 1. For some reason, D5W was continuing to infuse so I will stop that. 2. Diurese. 3. Continue to try to whittle down FiO2. 4. Stop NPH insulin. 5. Consider resuming Coumadin by Saturday. Job ID: [id number]
[2019-01-08] MEDS: Famotidine/PF 20 mg/2ml Vial SLOW IVP SCH (09:27)
[2019-01-08] MEDS: Furosemide 40 MG/4 ML VIAL SLOW IVP SCH (09:27)
--- NOTE | 2019-01-08 15:45 | PRG ---
DATE OF SERVICE: 01/08/2019 SUBJECTIVE: The patient reports that her breathing today is "so-so." She denies any other significant needs. She is getting some discomfort on her backside, just her being in the bed for so long. OBJECTIVE: VITAL SIGNS: Temperature 98.0, pulse 88 to 108, respirations 26, O2 saturation 91% on 50% high-flow nasal cannula, and blood pressure 107/65. GENERAL APPEARANCE: Morbidly obese, age-appropriate female, in no distress. HEART: Regular rate and rhythm. Borderline tachycardic. No murmurs. LUNGS: Have diffuse scattered rales and diminished breath sounds throughout bilaterally. ABDOMEN: Soft, nontender, and nondistended. EXTREMITIES: Persistent 2+ edema, pitting in the pretibial area. IMPRESSION AND PLAN: 1. Acute hypoxic respiratory failure. 2. Chronic obstructive pulmonary disease. Continue with DuoNebs, Brovana, Pulmicort nebulizer solution. Pulmonary following, trying to wean down her respiratory support as possible. 3. Acute on chronic stage III diastolic heart failure. Continuing with diuresis. She still has some persistent peripheral edema. 4. Supratherapeutic INR, improved. Should be able to resume Coumadin tomorrow. 5. Diabetes mellitus, very well controlled presently. The D5 has been discontinued. 6. Hyperlipidemia. We will resume her statin. 7. Hypertension. Blood pressure is extremely well controlled presently. 8. Morbid obesity. Job ID: [id number]
[2019-01-09 05:19] LABS: Anisocytosis MODERATE=16-30 cells (100X) (0-5/hpf); Band 5 % (5-11); Elliptocytes SLIGHT = 2-5 cells (100X) (0-1/hpf); Lymphocytes 11 % (21-51); MDiff Complete? YES; Mean Corpuscular HGB CONC 29.7 g/dL (32.0-36.0); Mean Corpuscular Hemoglobin 23.8 pg (27.0-31.0); Mean Corpuscular Volume 80.3 fL (78.0-98.0); Mean Platelet Volume 11.9 fL (7.4-10.4); Monocytes 1 % (0-10); Neutrophil 83 % (42-75); Nucleated RBC 1 % (0); Platelet Count 104 thou/uL (130-400); Platelet Morphology Comment Appears Decreased; RBC Distribution Width 21.8 % (11.5-14.5); Red Blood Cell (RBC) Count 3.77 mill/uL (4.20-5.40); Schistocytes SLIGHT = 2-5 cells (100X) (0-1/hpf); White Blood Cell (WBC) Count 13.2 thou/uL (4.8-10.8)
[2019-01-09 06:06] LABS: Chloride 104 mmol/L (98-107); Potassium 3.7 mmol/L (3.5-5.1); Sodium 137 mmol/L (136-145)
[2019-01-09 06:07] LABS: Calcium 8.7 mg/dL (7.8-10.44); Glucose 114 mg/dL (70-105)
[2019-01-09 06:09] LABS: Anion Gap 14 mmol/L (10-20); Carbon Dioxide 23 mmol/L (22-29)
[2019-01-09 06:11] LABS: BUN (Urea Nitrogen) 56 mg/dL (9.8-20.1); Calc. Creatinine Clearance 67 mL/min (70-130); Estimated GFR-MDRD 36
[2019-01-09] MEDS: Budesonide 0.5 MG/2 ML NEB INH SCH ×2 (06:52→18:26)
[2019-01-09] MEDS: Arformoterol 15 MCG/2 ML NEB NEB SCH ×2 (06:52→18:25)
[2019-01-09 09:26] LABS: INR-International Normal Ratio 2.5
--- NOTE | 2019-01-09 10:03 | PRG ---
DATE OF SERVICE: 01/09/2019 SUBJECTIVE: Ms. Rodriguez remains in the CCU. She is alternating between BiPAP and high-flow nasal cannula. She appears somewhat stronger this morning than she is in a week. OBJECTIVE: VITAL SIGNS: Temperature 98.1, pulse 85, blood pressure 116/74, O2 saturations 97%. Intake for 24 hours 986, output 1310. Weight 359 pounds. HEENT: Unremarkable. NECK: No JVD. LUNGS: Coarse rhonchi. CARDIAC: S1 and S2, regular. ABDOMEN: Obese, soft. EXTREMITIES: No overt edema. LABORATORY DATA: White blood cell count 13.2, hematocrit 30, platelet count 104. PT and INR are pending. Sodium 137, potassium 3.7, chloride 104, CO2 of 23, BUN 56, creatinine 1.7, glucose 114. ASSESSMENT: 1. Acute on chronic respiratory failure, requiring mechanical ventilation and high-flow oxygen. 2. Supratherapeutic INR from the patient previously being on Coumadin. Awaiting results for PT/INR today. Coumadin will likely need to be restarted over the weekend. 3. Resolved hyponatremia. 4. Morbid obesity. 5. Obstructive sleep apnea. 6. Diabetes mellitus. 7. Fluid overload. PLAN: 1. Continue diuretics. 2. Probably restart Coumadin by Saturday. 3. Continue high-flow oxygen during the day alternating with BiPAP at night. 4. Hopefully to IMCU sometime this weekend if she remains stable. Need to begin planning for rehab as soon as possible. Job ID: [id number]
[2019-01-09] MEDS: Famotidine/PF 20 mg/2ml Vial SLOW IVP SCH (10:18)
[2019-01-09] MEDS: Furosemide 40 MG/4 ML VIAL SLOW IVP SCH (10:18)
[2019-01-09 12:32] VITALS: BMI 40.5
[2019-01-09 15:50] VITALS: BP 133/92
[2019-01-09] MEDS: Warfarin Sodium 5 MG TAB PO SCH (19:18)
--- NOTE | 2019-01-09 22:37 | PDOC.PN ---
- Subjective Encounter Start Date: 01/09/19 Encounter Start Time: 16:00 Up in chair. Complains of pain in her buttocks from sitting. - Objective Resuscitation Status - Order Detail: 12/24/18 02:19 Resuscitation Status Routine Resuscitation Status: FULL: Full Resuscitation Vital Signs & Weight: Vital Signs (12 hours) Temp Pulse Pulse Pulse Resp BP BP 01/09/19 22:07 98 28 H 01/09/19 20:00 98.4 F 01/09/19 18:26 97 29 H 01/09/19 18:25 96 25 H 01/09/19 16:00 98.6 F 01/09/19 14:14 113 H 29 H 01/09/19 13:40 110 H 106 H 133/92 H 131/97 H 01/09/19 12:00 98.1 F Pulse Ox 01/09/19 22:07 94 L 01/09/19 20:00 92 L 01/09/19 18:26 92 L 01/09/19 18:25 91 L 01/09/19 16:00 01/09/19 14:14 01/09/19 13:40 01/09/19 12:00 91 L Weight Admit Weight 261 lb 14.546 oz Weight 259 lb Most Recent Monitor Data Heart Rate from ECG 98 NIBP 96/75 NIBP BP-Mean 82 Respiration from ECG 29 SpO2 94 I&O: 01/08/19 01/09/19 01/10/19 06:59 06:59 06:59 Intake Total 2493 986 820 Output Total 860 1310 768 Balance 1633 -324 52 Result Diagrams: 01/09/19 04:19 01/09/19 05:27 Phys Exam - Physical Examination Constitutional: NAD Up in chair. High flow NC in place. Respiratory: no wheezing, no rhonchi Scattered rales. Diminished BS Cardiovascular: RRR, no significant murmur Gastrointestinal: soft, non-tender, no distention Generalized edema Psychiatric: normal affect Dx/Plan (1) Acute on chronic stage C diastolic heart failure Code(s): I50.33 - ACUTE ON CHRONIC DIASTOLIC (CONGESTIVE) HEART FAILURE Status : Acute Comment: on diuresis. continue.monitor I/Os (2) Acute respiratory failure with hypoxia and hypercapnia Code(s): J96.01 - ACUTE RESPIRATORY FAILURE WITH HYPOXIA; J96.02 - ACUTE RESPIRATORY FAILURE WITH HYPERCAPNIA Status: Acute Comment: [facility] as clinically [facility], PCXR in am (3) COPD exacerbation Code(s): J44.1 - CHRONIC OBSTRUCTIVE PULMONARY DISEASE W (ACUTE) EXACERBATION Status: Acute (4) Vaginal yeast infection Code(s): B37.3 - CANDIDIASIS OF VULVA AND VAGINA Status: Acute (5) Supratherapeutic INR Code(s): R79.1 - ABNORMAL COAGULATION PROFILE Status: Resolved (6) DM type 2 (diabetes mellitus, type 2) Status: Chronic Qualifiers: Diabetes mellitus halfway insulin use: with halfway use Diabetes mellitus complication status: with kidney complications Diabetes mellitus complication detail: with chronic kidney disease Chronic kidney disease stage : stage 3 (moderate) Qualified Code(s): E11.22 - Type 2 diabetes mellitus with diabetic chronic kidney disease; N18.3 - Chronic kidney disease, stage 3 ( moderate); 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 Will increase meds by adding small dose of hydralazine TID. (9) Morbid obesity Code(s): E66.01 - MORBID (SEVERE) OBESITY DUE TO EXCESS CALORIES Status: Chronic Comment: BMI = 48kg/m2 - Plan * Pulmonary following. * Continue supportive oxygen. * Still edematous. Receiving IV Lasix, but not diuresing significantly. * May need to increase Lasix when renal status stable. * Can resume warfarin now that INR is normal.
[2019-01-10 06:03] LABS: INR-International Normal Ratio 2.3; Prothrombin Time 25.7 SEC (12.0-14.7)
[2019-01-10 06:15] LABS: Anion Gap 15 mmol/L (10-20); BUN (Urea Nitrogen) 57 mg/dL (9.8-20.1); Calc. Creatinine Clearance 74 mL/min (70-130); Calcium 8.6 mg/dL (7.8-10.44); Carbon Dioxide 21 mmol/L (22-29); Chloride 106 mmol/L (98-107); Estimated GFR-MDRD 41; Glucose 111 mg/dL (70-105); Potassium 3.7 mmol/L (3.5-5.1); Sodium 138 mmol/L (136-145)
[2019-01-10 06:43] LABS: #Basophils 0.1 thou/uL (0.0-0.2); #Eosinphils 0.2 thou/uL (0.0-0.7); #Lymphocytes 0.9 thou/uL (1.20-3.40); #Monocytes 0.7 thou/uL (0.11-0.59); #Neutrophils 9.5 thou/uL (1.40-6.50); %Basophils 0.4 % (0.0-1.0); %Eosinophils 1.4 % (0.0-10.0); %Lymphocytes 8.1 % (21.0-51.0); %Monocytes 6.3 % (0.0-10.0); %Neutrophils 83.8 % (42.0-75.0); Anisocytosis SLIGHT = 6-15 cells (100X) (0-5/hpf); Hemoglobin 9.3 g/dL (12.0-16.0); MDiff Complete? YES; Mean Corpuscular HGB CONC 29.5 g/dL (32.0-36.0); Mean Corpuscular Hemoglobin 24.2 pg (27.0-31.0); Mean Corpuscular Volume 81.9 fL (78.0-98.0); Mean Platelet Volume 9.8 fL (7.4-10.4); Platelet Count 124 thou/uL (130-400); Polychromasia SLIGHT = 2-3 cells (100X) (0-2/hpf); RBC Distribution Width 21.6 % (11.5-14.5); Red Blood Cell (RBC) Count 3.84 mill/uL (4.20-5.40); Schistocytes SLIGHT = 2-5 cells (100X) (0-1/hpf); White Blood Cell (WBC) Count 11.3 thou/uL (4.8-10.8)
[2019-01-10] MEDS: Arformoterol 15 MCG/2 ML NEB NEB SCH (06:49)
[2019-01-10] MEDS: Budesonide 0.5 MG/2 ML NEB INH SCH (06:49)
[2019-01-10] MEDS: Furosemide 40 MG/4 ML VIAL SLOW IVP SCH (09:02)
[2019-01-10] MEDS: Famotidine/PF 20 mg/2ml Vial SLOW IVP SCH (09:02)
[2019-01-10] MEDS: HumaLOG 300 UNITS/3 ML VIAL SC PRN (12:40)
--- NOTE | 2019-01-10 13:39 | PRG ---
DATE OF SERVICE: 01/10/2019 SUBJECTIVE: Ms. Rodriguez remains on high-flow O2 during the day and BiPAP at night reportedly. OBJECTIVE: VITAL SIGNS: Heart rate is 100, respiratory rate is 20s, oximetry is 98% on high-flow, and blood pressure is 97/69. LUNGS: Clear anteriorly. HEART: Regular rhythm. ABDOMEN: Soft. EXTREMITIES: Without asymmetry or edema. LABORATORY DATA: White count 11.3, hemoglobin 9.3, and platelets 124. Sodium 138, potassium 3.7, chloride 106, bicarb 21, BUN 57, and creatinine 1.58. Intake and output negative 83 mL. IMPRESSION: 1. Acute on chronic respiratory failure, status post mechanical ventilation. 2. Anticoagulation. Her INR yesterday was 2.5 and today at 2.3. Warfarin was reordered yesterday afternoon. 3. Sleep apnea. 4. Obesity. 5. Diabetes. 6. Volume overload. 7. Acute on chronic kidney disease, improving. PLAN: Apparently, there is an LTAC bed available. She would have to be transferred in my opinion with BiPAP as they are likely to have high-flow O2 during ambulance transfer, but it would be reasonable to transfer her if the arrangements have been made. Job ID: [id number]
[2019-01-10] MEDS: traMADol HCl 50 MG TAB PO PRN (14:27)
[2019-01-10] MEDS: Warfarin Sodium 5 MG TAB PO SCH (17:00)
--- NOTE | 2019-01-10 19:37 | EKG ---
Test Reason : Blood Pressure : / mmHG Vent. Rate : 057 BPM Atrial Rate : 277 BPM P-R Int : 000 ms QRS Dur : 130 ms QT Int : 426 ms P-R-T Axes : 000 270 093 degrees QTc Int : 414 ms Wide QRS rhythm with Fusion complexes Left axis deviation Non-specific intra-ventricular conduction block Nonspecific T wave abnormality Abnormal ECG Confirmed by SYED ALMEIDA DO ([id number]), online content editor OTONIEL AGUILAR ([id number] on 01/10/2019 7:36:42 PM Referred By: Confirmed By:SYED ALMEIDA DO
[2019-01-10 20:03] VITALS: TEMP 98.2
== END 2019-01-10 17:23 | DRG 870 ==
LOC: ERS 00:48 → CCU 03:35
PROVIDERS: ADMIT Hospitalist; ATTEND Hospitalist
PROC: 5A12012 Performance of Cardiac Output, Single, Manual (ICD-10-PCS; principal; 2018-12-24)
PROC: 5A1955Z Respiratory Ventilation, Greater than 96 Consecutive Hours (ICD-10-PCS; 2018-12-24)
PROC: 0BH17EZ Insertion of Endotracheal Airway into Trachea, Via Natural or Artificial Opening (ICD-10-PCS; 2018-12-24)
PROC: 02HV33Z Insertion of Infusion Device into Superior Vena Cava, Percutaneous Approach (ICD-10-PCS; 2018-12-24)
PROC: 03HY32Z Insertion of Monitoring Device into Upper Artery, Percutaneous Approach (ICD-10-PCS; 2018-12-24)
PROC: 06HM33Z Insertion of Infusion Device into Right Femoral Vein, Percutaneous Approach (ICD-10-PCS; 2018-12-26)
PROC: 5A1D70Z Performance of Urinary Filtration, Intermittent, Less than 6 Hours Per Day (ICD-10-PCS; 2018-12-26)
PROC: 0B9D7ZX Drainage of Right Middle Lung Lobe, Via Natural or Artificial Opening, Diagnostic (ICD-10-PCS; 2019-01-01)
DX: A41.9 Sepsis, unspecified organism (principal); I46.9 Cardiac arrest, cause unspecified; J18.0 Bronchopneumonia, unspecified organism; N17.0 Acute kidney failure with tubular necrosis; I50.33 Acute on chronic diastolic (congestive) heart failure; J96.21 Acute and chronic respiratory failure with hypoxia; J96.22 Acute and chronic respiratory failure with hypercapnia; E87.2 Acidosis; J44.1 Chronic obstructive pulmonary disease with (acute) exacerbation; I13.0 Hypertensive heart and chronic kidney disease with heart failure and stage 1 through stage 4 chronic kidney disease, or unspecified chronic kidney disease; Z68.42 Body mass index [BMI] 45.0-49.9, adult; R04.2 Hemoptysis; E87.0 Hyperosmolality and hypernatremia; E66.2 Morbid (severe) obesity with alveolar hypoventilation; E87.6 Hypokalemia; N18.3 Chronic kidney disease, stage 3 (moderate); E11.65 Type 2 diabetes mellitus with hyperglycemia; D63.1 Anemia in chronic kidney disease; I27.20 Pulmonary hypertension, unspecified; Z86.718 Personal history of other venous thrombosis and embolism; E11.22 Type 2 diabetes mellitus with diabetic chronic kidney disease; Z91.19 Patient's noncompliance with other medical treatment and regimen; E78.5 Hyperlipidemia, unspecified; B37.3 Candidiasis of vulva and vagina; I27.81 Cor pulmonale (chronic); Z86.73 Personal history of transient ischemic attack (TIA), and cerebral infarction without residual deficits; Z87.891 Personal history of nicotine dependence; Z79.01 Long term (current) use of anticoagulants; Z79.4 Long term (current) use of insulin
CPT/HCPCS: 31500; 36415; 36416; 36556; 36620; 36680; 51702; 71045; 80048; 80053; 80202; 82330; 82803; 82805; 83605; 83735; 83880; 84100; 84484; 85025; 85610; 85730; 86706; 87040; 87070; 87205; 87340; 90935; 92950; 93005; 93306; 93970; 94002; 94003; 94640; 94660; 96361; 96365; 96366; 96374; 96375; 96376; 99292; C1752; G0257; G0365; J0692; J1450; J1642; J1644; J1815; J1940; J1956; J2060; J2270; J2543; J2704; J2920; J3010; J3370; J3480; J3490; J7050; J7070; J7620; J7626; S0028